=== PATIENT | female | born 1985 | race Caucasian/White ===

== ENCOUNTER 2024-03-24 20:47 | Inpatient (IN) | payer MEDICARE, BC, SELFPAY ==
[2024-03-24] VITALS (14 sets, daily range): BP systolic 104–142; BP diastolic 63–92; BMI 33.4
[2024-03-24 12:50] LABS: % Basophils 0.6 % (0-2); % Eosinophils 0.3 % (0-6); % Immature Granulocytes 2.7 % (0-0.5); % Lymphocytes 12.9 % (20.5-51.1); % Monocytes 6.2 % (1.7-9.3); % Neutrophils 77.3 % (42.2-75.2); Absolute Basophils 0.1 10^3/uL (0-0.2); Absolute Eosinophils 0.1 10^3/uL (0-0.7); Absolute Immature Granulocytes 0.5 10^3/uL (0-0.05); Absolute Lymphocytes 2.4 10^3/uL (1.2-3.4); Absolute Monocytes 1.2 10^3/uL (0.1-0.6); Absolute Neutrophils 14.4 10^3/uL (1.4-6.5); Hematocrit 36.8 % (37.0-47.0); Hemoglobin 11.7 g/dL (12.0-16.0); Mean Corp Hgb Conc. 31.8 g/dL (33.0-37.0); Mean Corpuscular Hgb 26.5 pg (27.0-31.0); Mean Corpuscular Volume 83.4 fL (81.0-99.0); Mean Platelet Volume 9.2 fL (7.4-10.4); Nucleated Red Blood Cells % 0.2 %; Platelet Count 429 10^3/uL (130-400); Red Blood Cell Count 4.41 10^6/uL (4.20-5.40); Red Cell Dist. Width 15.2 % (11.5-14.5); White Blood Cell Count 18.6 10^3/uL (4.8-10.8)
[2024-03-24 13:03] LABS: HCG, Serum Qualitative Screen Negative
[2024-03-24 13:04] LABS: ALT (SGPT) 23 U/L (0-35); AST (SGOT) 24 U/L (14-36); Albumin 3.3 g/dl (3.5-5.0); Alkaline Phosphatase 113 U/L (38-126); Blood Urea Nitrogen 13 mg/dl (7-17); Calcium 9.5 mg/dl (8.4-10.2); Carbon Dioxide 25 mmol/L (22-30); Chloride 91 mmol/L (98-107); Glucose 444 mg/dl (70-99); Lipase 50 U/L (23-300); Potassium 4.1 mmol/L (3.5-5.1); Sodium 133 mmol/L (135-145); Total Bilirubin 0.6 mg/dl (0.2-1.3); Total Protein 7.1 g/dl (6.3-8.2); eGFR > 60.00
--- NOTE | 2024-03-24 15:08 | ED.GENMED ---
History of Present Illness
<Romana Juarez MD, Resident - Last Filed: 03/24/24 15:32>
General
Chief Complaint: Flank Pain
Source: patient and family
Exam Limitations: none
Time Seen by Provider: 03/24/24 14:42
Nursing documentation reviewed up to this point in time: agreed with
Travel History
Have you traveled to any high risk areas for coronavirus over the past 14 days?: No
Have you had any contact with someone who has COVID-19?: No
Do you have any symptoms of coronavirus? Fever > 100 degrees, chills, cough, shortness of breath, sore throat, loss of taste or smell, muscle aches, or headache?: No
History of Present Illness
History of Present Illness:
38-year-old female with spina bifida s/p VA shunt, multiple revisions, most recent revision in 2013, history of nephrolithiasis, diabetes on oral medications, LINH on CPAP, self cath of bladder with stoma, presents to the hospital for evaluation of a
sudden onset flank swelling that patient and her family noticed yesterday night. Right-sided flank swelling was incidentally noticed by patient's mom when patient started moaning in pain every time she rests her back to her wheelchair. There is no
redness or hotness to the swelling, but the pain is 7/10 in intensity and nonradiating. She denies having any associated fever, chills, nausea, emesis, frequency, hesitancy, dysuria-she self caths herself for urine. There are no changes in her
bowel habits- no change in her stomal output. she denies having any cough, shortness of breath, chest pain, palpitations as well.
She also has a sacral decubitus ulcer stage III, she and her mom know how to take care of it, and states that there is no scar tissue or discharge or change in the base of her ulcer from her usual normal.
Upon arrival to the ER patient is found to be tachycardia and tachypnea but no hypotension or temperature changes, CBC is evidence for leukocytosis with left shift, hemoglobin at 11.7, platelet counts showed reactive thrombocytosis, and patient is
in high anion gap metabolic acidosis with anion gap at 18.8.
Patient recently moved from [place], and has her care team in [place].
Neurosurgery - Leo Delgado MD, [facility].
Urology - Dr. Ascencion Barahona MD, [facility].
PCP - Iban Rolon - [facility]
If applicable-neuro sx onset
Onset of symptoms known: No
Time pt last seen normal is known: No
Past History
<Romana Juarez MD, Resident - Last Filed: 03/24/24 15:32>
Past History
ED Past Medical History: Other (Spina bifida, VA shunt, diabetes mellitus, stoma, nephrolithiasis.)
ED Past Surgical History: Other (Presence of stoma, VA shunt with revision-most recent revision in 2013)
Phy Exam
<Carine Damon DO - Last Filed: 03/24/24 20:24>
Physical Exam
Physical Exam:
General: Well-appearing, no clinical signs of dehydration, nontoxic and in no acute distress
HEENT: protecting airway. Area of prior Mohs surgery to superior forehead, no erythema to borders, no drainage
Neck: appears supple
CV: Tachycardic, regular rhythm, no evidence of cyanosis
Resp: No accessory muscle use, no increased work of breathing, lungs clear to auscultation bilaterally
Abd: Soft and non-distended, no tenderness to palpation
Extremities: No deformities, no swelling. Large area of induration to the right flank, lower thoracic back extending to the distal flank region. Tender to palpation, no fluctuance on palpation.
Neuro: alert, no focal neurologic deficit
: deferred
Rectal: deferred
Psych: Normal affect
Skin: Intact
Course
<Romana Juarez MD, Resident - Last Filed: 03/24/24 15:32>
Orders/Labs/Results
Orders:
Orders
03/24/24 12:18
Test Result ONCE
03/24/24 12:25
Complete Blood Count/With Diff Urgent
Comprehensive Metabolic Panel Urgent
HCG, Serum Qualitative Screen Urgent
Lipase Urgent
03/24/24 15:04
IV Insert/Care/Rem.- Treatment PRN
0.9% Sodium Chloride 1000 ml [Nss] 1,000 ml IV BOLUS
03/24/24 15:30
CT Chest/abd/pel W Iv Cont Urgent
Comment:
Reason For Exam: Flank and upper thorasic swelling
03/24/24 15:59
B-Hydroxybutyrate Urgent
Basic Metabolic Panel Q2H
Lactic Acid Urgent
Prothrombin Time Urgent
Urinalysis Urgent
Date Specimen was Collected: 03/24/24
Time Specimen was Collected: 15:34
Urine Microscopic Urgent
Date Specimen was Collected: 03/24/24
Time Specimen was Collected: 15:34
Venous Blood Gas Urgent
%Oxygen/Room Air: 21
Blood Culture Q30M
JOAQUÍN Source: Blood/Venous
Specimen Description:
Comment: Obtain from 2 different sites.
Blood Culture Q30M
JOAQUÍN Source: Blood/Venous
Specimen Description:
Comment: Obtain from 2 different sites.
03/24/24 17:11
Basic Metabolic Panel Q2H
03/24/24 17:43
Piperacillin/Tazo 4.5 Gram [Zosyn] 4.5 gram in 100 ml IV NOW
03/24/24 17:45
Reg Insulin 100 Units/100 ml [Novolin R Insulin Infusion] 100 units in 100 ml IV ORDERED RATE
Initial dose in units/hr, then titrate:: 0.1
03/24/24 18:00
KCl 20 Meq/0.9%Sodchl 1000 ml [NSS with KCL 20 MEQ] 20 meq in 1,000 ml IV 250 mls/hr
03/24/24 18:22
Reg Insulin 100 Units/100 ml [Novolin R Insulin Infusion] 100 units in 100 ml IV NOW
Abnormal Lab Results
03/24/24 03/24/24 03/24/24
12:25 15:59 17:11
WBC 18.6 H 10^3/uL
(4.8-10.8)
Hgb 11.7 L g/dL
(12.0-16.0)
Hct 36.8 L %
(37.0-47.0)
MCH 26.5 L pg
(27.0-31.0)
MCHC 31.8 L g/dL
(33.0-37.0)
RDW 15.2 H %
(11.5-14.5)
Plt Count 429 H 10^3/uL
(130-400)
Abs Immat Gran (auto) 0.5 H 10^3/uL
(0-0.05)
Absolute Neuts (auto) 14.4 H 10^3/uL
(1.4-6.5)
Absolute Monos (auto) 1.2 H 10^3/uL
(0.1-0.6)
Immature Gran % 2.7 H %
(0-0.5)
Neutrophils % 77.3 H %
(42.2-75.2)
Lymphocytes % 12.9 L %
(20.5-51.1)
PT 16.2 H Sec
(11.4-14.6)
VBG pO2 52 H mmHg
(30-50)
VBG HCO3 27.2 H mmol/L
(22-27)
Sodium 133 L mmol/L 133 L mmol/L
(135-145) (135-145)
Chloride 91 L mmol/L 90 L mmol/L 93 L mmol/L
(98-107) (98-107) (98-107)
Creatinine 0.4 L mg/dL 0.4 L mg/dL 0.4 L mg/dL
(0.6-1.0) (0.6-1.0) (0.6-1.0)
Glucose 444 H mg/dl 421 H mg/dl 386 H mg/dl
(70-99) (70-99) (70-99)
Albumin 3.3 L g/dl
(3.5-5.0)
Urine Ketones 1+ A
(Negative)
Ur Leukocyte Esterase Trace A
(Negative)
Urine Bacteria Many A
(Negative)
Urine Glucose 3+ A
(Negative)
B-Hydroxybutyrate 2.54 H mmol/L
(0.02-0.27)
POC Glucose
03/24/24
19:26
WBC
Hgb
Hct
MCH
MCHC
RDW
Plt Count
Abs Immat Gran (auto)
Absolute Neuts (auto)
Absolute Monos (auto)
Immature Gran %
Neutrophils %
Lymphocytes %
PT
VBG pO2
VBG HCO3
Sodium
Chloride
Creatinine
Glucose
Albumin
Urine Ketones
Ur Leukocyte Esterase
Urine Bacteria
Urine Glucose
B-Hydroxybutyrate
POC Glucose 354 H mg/dl
(70-99)
03/24/24 12:25
03/24/24 19:15
Vital Signs
Initial and Last Documented VS:
Initial Vital Signs
Temp Pulse Resp BP Pulse Ox
98.2 F 127 16 117/90 98
03/24/24 12:12 03/24/24 12:12 03/24/24 12:12 03/24/24 12:12 03/24/24 12:12
Last Documented Vital Signs
Temp Pulse Resp BP Pulse Ox
98.2 F 121 32 136/88 93
03/24/24 12:12 03/24/24 19:00 03/24/24 19:00 03/24/24 19:00 03/24/24 19:00
<Carine Damon, DO - Last Filed: 03/24/24 20:24>
Orders/Labs/Results
Orders:
Orders
03/24/24 12:18
Test Result ONCE
03/24/24 12:25
Complete Blood Count/With Diff Urgent
Comprehensive Metabolic Panel Urgent
HCG, Serum Qualitative Screen Urgent
Lipase Urgent
03/24/24 15:04
IV Insert/Care/Rem.- Treatment PRN
0.9% Sodium Chloride 1000 ml [Nss] 1,000 ml IV BOLUS
03/24/24 15:30
CT Chest/abd/pel W Iv Cont Urgent
Comment:
Reason For Exam: Flank and upper thorasic swelling
03/24/24 15:59
B-Hydroxybutyrate Urgent
Basic Metabolic Panel Q2H
Lactic Acid Urgent
Prothrombin Time Urgent
Urinalysis Urgent
Date Specimen was Collected: 03/24/24
Time Specimen was Collected: 15:34
Urine Microscopic Urgent
Date Specimen was Collected: 03/24/24
Time Specimen was Collected: 15:34
Venous Blood Gas Urgent
%Oxygen/Room Air: 21
Blood Culture Q30M
JOAQUÍN Source: Blood/Venous
Specimen Description:
Comment: Obtain from 2 different sites.
Blood Culture Q30M
JOAQUÍN Source: Blood/Venous
Specimen Description:
Comment: Obtain from 2 different sites.
03/24/24 17:11
Basic Metabolic Panel Q2H
03/24/24 17:43
Piperacillin/Tazo 4.5 Gram [Zosyn] 4.5 gram in 100 ml IV NOW
03/24/24 17:45
Reg Insulin 100 Units/100 ml [Novolin R Insulin Infusion] 100 units in 100 ml IV ORDERED RATE
Initial dose in units/hr, then titrate:: 0.1
03/24/24 18:00
KCl 20 Meq/0.9%Sodchl 1000 ml [NSS with KCL 20 MEQ] 20 meq in 1,000 ml IV 250 mls/hr
03/24/24 18:22
Reg Insulin 100 Units/100 ml [Novolin R Insulin Infusion] 100 units in 100 ml IV NOW
Abnormal Lab Results
03/24/24 03/24/24 03/24/24
12:25 15:59 17:11
WBC 18.6 H 10^3/uL
(4.8-10.8)
Hgb 11.7 L g/dL
(12.0-16.0)
Hct 36.8 L %
(37.0-47.0)
MCH 26.5 L pg
(27.0-31.0)
MCHC 31.8 L g/dL
(33.0-37.0)
RDW 15.2 H %
(11.5-14.5)
Plt Count 429 H 10^3/uL
(130-400)
Abs Immat Gran (auto) 0.5 H 10^3/uL
(0-0.05)
Absolute Neuts (auto) 14.4 H 10^3/uL
(1.4-6.5)
Absolute Monos (auto) 1.2 H 10^3/uL
(0.1-0.6)
Immature Gran % 2.7 H %
(0-0.5)
Neutrophils % 77.3 H %
(42.2-75.2)
Lymphocytes % 12.9 L %
(20.5-51.1)
PT 16.2 H Sec
(11.4-14.6)
VBG pO2 52 H mmHg
(30-50)
VBG HCO3 27.2 H mmol/L
(22-27)
Sodium 133 L mmol/L 133 L mmol/L
(135-145) (135-145)
Chloride 91 L mmol/L 90 L mmol/L 93 L mmol/L
(98-107) (98-107) (98-107)
Creatinine 0.4 L mg/dL 0.4 L mg/dL 0.4 L mg/dL
(0.6-1.0) (0.6-1.0) (0.6-1.0)
Glucose 444 H mg/dl 421 H mg/dl 386 H mg/dl
(70-99) (70-99) (70-99)
Albumin 3.3 L g/dl
(3.5-5.0)
Urine Ketones 1+ A
(Negative)
Ur Leukocyte Esterase Trace A
(Negative)
Urine Bacteria Many A
(Negative)
Urine Glucose 3+ A
(Negative)
B-Hydroxybutyrate 2.54 H mmol/L
(0.02-0.27)
POC Glucose
03/24/24
19:26
WBC
Hgb
Hct
MCH
MCHC
RDW
Plt Count
Abs Immat Gran (auto)
Absolute Neuts (auto)
Absolute Monos (auto)
Immature Gran %
Neutrophils %
Lymphocytes %
PT
VBG pO2
VBG HCO3
Sodium
Chloride
Creatinine
Glucose
Albumin
Urine Ketones
Ur Leukocyte Esterase
Urine Bacteria
Urine Glucose
B-Hydroxybutyrate
POC Glucose 354 H mg/dl
(70-99)
03/24/24 12:25
03/24/24 19:15
Vital Signs
Initial and Last Documented VS:
Initial Vital Signs
Temp Pulse Resp BP Pulse Ox
98.2 F 127 16 117/90 98
03/24/24 12:12 03/24/24 12:12 03/24/24 12:12 03/24/24 12:12 03/24/24 12:12
Last Documented Vital Signs
Temp Pulse Resp BP Pulse Ox
98.2 F 121 32 136/88 93
03/24/24 12:12 03/24/24 19:00 03/24/24 19:00 03/24/24 19:00 03/24/24 19:00
<Carine Damon, DO - Last Filed: 03/24/24 20:24>
*Critical Care Note
Total Time (30-74mins, 75-104mins- exclusive of procedures): 75
comment:
The high probability of a clinically significant, sudden or life threatening deterioration of the infectious system(s) (DKA/large renal abscess) required my full and direct attention, intervention and personal management. The aggregate critical care
time was 75 minutes. This time is in addition to time spent performing reported procedures but includes the following:
[x] Data Review and interpretation
[x] Patient assessment and monitoring of vital signs
[x] Documentation
[x] Medication orders and management
ED Attending Note
<Romana Juarez MD, Resident - Last Filed: 03/24/24 15:32>
-
Portions of this chart may have been created with voice recognition software.� Occasional wrong word or��sound alike� substitutions may have occurred due to the inherent limitations of voice recognition software.
<Carine Damon DO - Last Filed: 03/24/24 20:24>
ED Attending Note
Patient seen and examined by attending physician: Yes
I performed the substantive portion of visit, reviewed & personally made and approve the management plan that is documented in note by myself or CHEY.: Yes
I performed a history and physical exam of patient and discussed management with resident, I reviewed resident's note and agree with documented findings and plan of care.: Yes
ED Attending Note:
38-year-old female with history of diabetes, spina bifida with VA shunt (most recent revision in 2013), stage III ulceration of the sacrum presenting to the emergency department for right flank pain and swelling. Patient reports she noticed pain
and swelling last evening, however has had pain for the past few days. Has no history of kidney stones. Denies any known fever. Pain is sharp without radiation to the abdomen. She notes compliance with her diabetes medications, however does not
routinely check her sugars at home. Denies chest pain or difficulty breathing. Denies vomiting. Vital signs on arrival significant for tachycardia.
On exam, patient is resting comfortably, no acute distress. Benign cardiac and pulmonary exam, however on lung examination, large area of induration to the right flank region with tenderness to soft tissue. No fluctuance. Patient screening
laboratory analysis assessment which shows leukocytosis, hyperglycemia, with anion gap of 18. Concern for DKA from underlying infection, possible soft tissue infection. Will add lactic acid, blood cultures, VBG, beta hydroxybutyrate. Will start
patient on IV fluids. For further evaluation of patient soft tissue swelling, plan for CT chest/abdomen/pelvis.
17:50 -patient without acidosis, however does have elevated beta hydroxybutyrate. In the setting of anion gap and hyperglycemia, will start insulin drip. CT of the chest abdomen and pelvis shows a large 14 cm centrally cystic mass from the
posterior cortex of the right kidney extending posteriorly through the abdominal wall, concerning for abscess. Interventional radiology and urology made aware. Plan for admission. Family and patient updated.
19:10 -discussed with urology, recommending transfer to tertiary care center given complexity of patient's condition. He was able to place a catheter into her bladder stoma, and did discuss with IR, who is recommending medical resuscitation prior
to percutaneous cath for abscess drainage. Did call [facility] for transfer and urology recommendations, discussed with hospitalist, who is in agreement that patient warrants transfer to tertiary care center given complex medical history condition.
Patient accepted by Dr. Reyes, notes that patient will get a bed tonight. Family updated again.
20:20 - [facility] called back, discussed with MICU doctor, Dr. Ornelas. Also discussed with IR . Patient remains excepted to their facility, however bed will not be available for the next 24 hours. Plan for admission to this facility until bed
available.
Discharge Plan
Departure
Patient Disposition: Acute Care Hospital
Date of Disposition: 03/24/24
Time of Disposition: 17:57
Condition: Fair
Discharge Problem:
DKA (diabetic ketoacidosis), Abscess of right kidney
Prescriptions:
No Action
atorvastatin 40 mg tablet
40 mg PO QPM
desmopressin 10 mcg/spray (0.1 mL) spray with pump
1 spray INTRANASAL BID
desmopressin 0.2 mg tablet
0.2 mg PO QIDPRN PRN (Reason: diabetes insipidus symptoms)
chlorthalidone 25 mg tablet
25 mg PO DAILY
glimepiride 2 mg tablet
2 mg PO BID
methenamine hippurate 1 gram tablet
1 g PO BIDWMEAL
azelastine 137 mcg (0.1 %) spray,non-aerosol
1 spray INTRANASAL BIDPRN PRN (Reason: congestion)
fenofibrate 160 mg tablet
160 mg PO HS
guaifenesin [Mucinex] 1,200 mg Tablet Extended Release 12hr
1,200 mg PO DAILY
mirabegron [Myrbetriq] 50 mg tablet extended release 24 hr
50 mg PO DAILY
Ozempic 1 mg/dose (4 mg/3 mL) pen injector
1 mg SC LARSON
Vitamin C
1 tab PO BIDWMEAL
Referrals:
Iban Hernández MD [Family Provider] -
Hospital Transfer
Other hospital: [facility]
I certify that the patient requires transfer: Yes
Discussed case with accepting physician: Dr. Reyes
Reason for transfer: higher level of care and specialties available
Interventions
Interventions:
ED- Fall Risk Assessment Last Done: 03/24/24 16:12
WA-Nvfwnt-Czexsdvpiv Assessment Last Done: 03/24/24 16:06
ED-Female Genitourinary Assessment Last Done: 03/24/24 16:07
Discharge Date and Time
Print Language: SCOTTISH
[2024-03-24] MEDS: NSS 1000 IV (16:01)
[2024-03-24 16:13] LABS: Urine Albumin Trace (Neg - Trace); Urine Bilirubin Negative (Negative); Urine Character Slightly Cloudy (Clear); Urine Color Yellow; Urine Glucose 3+ (Negative); Urine Ketone 1+ (Negative); Urine Leukocyte Trace (Negative); Urine Nitrite Negative (Negative); Urine Occult Blood Negative (Negative); Urine Urobilinogen Negative (Neg - 1+); Venous Blood Gas B.E. 2.6 mmol/L (-4 to +4); Venous Blood Gas HCO3 27.2 mmol/L (22-27); Venous Blood Gas O2 Sat % 86.5 %; Venous Blood Gas pCO2 41 mmHg (35-48); Venous Blood Gas pH 7.43 (7.32-7.43); Venous Blood Gas pO2 52 mmHg (30-50)
[2024-03-24 16:21] LABS: Urine Bacteria Many (Negative); Urine Red Blood Cell 0-2 /HPF (0-2)
[2024-03-24 16:24] LABS: INR 1.27; PT 16.2 Sec (11.4-14.6)
[2024-03-24 16:26] LABS: Lactic Acid 1.6 mmol/L (0.7-2.0)
[2024-03-24 16:27] LABS: Blood Urea Nitrogen 14 mg/dl (7-17); Calcium 9.4 mg/dl (8.4-10.2); Carbon Dioxide 26 mmol/L (22-30); Chloride 90 mmol/L (98-107); Glucose 421 mg/dl (70-99); Potassium 3.9 mmol/L (3.5-5.1); Sodium 133 mmol/L (135-145); eGFR > 60.00
[2024-03-24 16:33] LABS: B-Hydroxybutyrate 2.54 mmol/L (0.02-0.27)
[2024-03-24 17:33] LABS: Blood Urea Nitrogen 13 mg/dl (7-17); Calcium 8.9 mg/dl (8.4-10.2); Carbon Dioxide 26 mmol/L (22-30); Chloride 93 mmol/L (98-107); Glucose 386 mg/dl (70-99); Potassium 3.7 mmol/L (3.5-5.1); Sodium 135 mmol/L (135-145); eGFR > 60.00
--- NOTE | 2024-03-24 18:06 | HPS.HSE ---
Family Physician
-
Family Physician: Iban Hernández MD
Chief Complaint
-
right flank pain
History of Present Illness
38-year-old female with spina bifida s/p VA shunt, multiple revisions, most recent revision in 2013, history of nephrolithiasis, diabetes on oral medications, LINH on CPAP, self cath of bladder with stoma, presents to the hospital for evaluation of a
sudden onset flank swelling that patient and her family noticed yesterday night. Right-sided flank swelling was incidentally noticed by patient's mom when patient started moaning in pain every time she rests her back to her wheelchair. She denies
having any associated fever, chills, nausea, emesis, frequency, hesitancy, dysuria-she self caths herself for urine. denied abdominal pain,n,v,d. denied dysuria or hematuria. she denies having any cough, shortness of breath, chest pain,
palpitations as well.
She also has a sacral decubitus ulcer stage III, she and her mom know how to take care of it, and states that there is no scar tissue or discharge or change in the base of her ulcer from her usual normal.
Upon arrival to the ER patient is found to be tachycardia and tachypnea, CBC is evidence for leukocytosis with left shift, hemoglobin at 11.7, platelet counts showed reactive thrombocytosis, and patient is in high anion gap metabolic acidosis with
anion gap at 18.8.
patient started on zosyn and insulin drip
admitting for further management.
Medical History
Past Medical History
Past Medical History: Reports Other
Additional Past Medical History:
spina bifida s/p VA shunt, multiple revisions, most recent revision in 2013, history of nephrolithiasis, diabetes on oral medications, LINH on CPAP, self cath of bladder with stoma,
Past Surgical History: Reports Other
Additional Past Surgical History:
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
kidney stone surgeries
MOHS surgery
stoma creation for self cath
Social History
Tobacco: Non-smoker
Alcohol: None
Drug: None
Living: With Family
Family History
Family History: Not pertinent
Allergies / Home Medications
Allergies reflects when Allergies were last updated in [facility].
Home Medications with original date entered in [facility]
Allergy/Medication List:
Allergies
Allergy/AdvReac Type Severity Reaction Status Date / Time
latex Allergy Itching Verified 03/24/24 12:17
Home Medications
Vitamin C 1 tab PO BIDWMEAL 03/24/24
atorvastatin 40 mg tablet 40 mg PO QPM 03/24/24
azelastine 137 mcg (0.1 %) nasal spray 1 spray intranasal BIDPRN PRN congestion 03/24/24
chlorthalidone 25 mg tablet 25 mg PO DAILY 03/24/24
desmopressin 0.2 mg tablet 0.2 mg PO QIDPRN PRN diabetes insipidus symptoms 03/24/24
desmopressin 10 mcg/spray (0.1 mL) nasal spray (non-refrigerated) 1 spray intranasal BID 03/24/24
fenofibrate 160 mg tablet 160 mg PO HS 03/24/24
glimepiride 2 mg tablet 2 mg PO BID 03/24/24
guaifenesin 1,200 mg tablet, extended release 12 hr (Mucinex) 1,200 mg PO DAILY 03/24/24
methenamine hippurate 1 gram tablet 1 g PO BIDWMEAL 03/24/24
mirabegron 50 mg tablet,extended release 24 hr (Myrbetriq) 50 mg PO DAILY 03/24/24
semaglutide 1 mg/dose (4 mg/3 mL) subcutaneous pen injector (Ozempic) 1 mg SC LARSON 03/24/24
Review of Systems
-
Constitutional: Reports No Symptoms
EENT: Reports No Symptoms
Respiratory: Reports No Symptoms
Cardiac: Reports No Symptoms
Abdomen/GI: Reports No Symptoms
: Reports No Symptoms
Musculoskeletal: Reports Other (back pain)
Skin: Reports No Symptoms
Neurological: Reports No Symptoms
Endocrine: Reports No Symptoms
Hematologic/Lymphatic: Reports No Symptoms
Psych: Reports No Symptoms
Physical Exam
Vital Signs
Vital Signs
Temp Pulse Resp BP Pulse Ox
98.2 F 120 35 140/80 93
03/24/24 12:12 03/24/24 17:30 03/24/24 17:30 03/24/24 17:00 03/24/24 17:30
Physical Exam
General: Well Developed, Well Nourished and No Apparent Distress
HEENT: NormoCephalic, Moist mucous membranes and Atraumatic
Respiratory: Clear
Cardiac: S1/S2 and Regular Rhythm; No Murmur or Rub
GI: Soft, Non Tender, Non Distended and Normal Bowel Sounds; No Organomegaly
Rectal: Deferred by Provider
Musculoskeletal: No Clubbing, No Cyanosis, No Edema and Other (right sided swelling)
Skin: No Rash
Neuro: AO x 3 and Nonfocal/grossly intact
Psych: Calm
Laboratory Results
-
03/24/24 12:25
03/24/24 19:15
Laboratory Results
PT 16.2 Sec (11.4-14.6) H 03/24/24 15:59
INR 1.27 03/24/24 15:59
Lactic Acid 1.6 mmol/L (0.7-2.0) 03/24/24 15:59
Total Bilirubin 0.6 mg/dl (0.2-1.3) 03/24/24 12:25
AST 24 U/L (14-36) 03/24/24 12:25
ALT 23 U/L (0-35) 03/24/24 12:25
Alkaline Phosphatase 113 U/L (38-126) 03/24/24 12:25
Lipase 50 U/L (23-300) 03/24/24 12:25
Data Reviewed
-
CT Scan: Report Reviewed by me
Lab Data: Labs Reviewed by me
Impression/Plan
-
#suspect renal mass/abscess
-wbc 18.6
-IR and urology consulted
-chest abdomen pelvis CT with LARGE 14.0 cm CENTRALLY CYSTIC MASS exophytic from the posterior cortex of the RIGHT KIDNEY and extending posteriorly through the posterior abdominal wall. Diagnostic possibilities are (1) a LARGE RIGHT RENAL ABSCESS
and acute right pyelonephritis or (2) cystic renal cell carcinoma (less likely given the patient's age).
2. Multiple nonobstructing right intrarenal calculi.
3. Moderate amount of fecal material throughout the colon.
4. Neurogenic bladder.
5. Severe congenital sacral dysraphism with a large spina bifida defect in the lower lumbar spine and calcification throughout the thecal sac of the lumbar spinal canal.
6. Severe diffuse muscle atrophy.
-iv Zosyn continued
-Tylenol prn for fever and pain
-blood culture
#DKA
-on insulin drip
-hold glimepiride
-hold Ozempic
#neurogenic bladder
-catheter in place via stoma
#HLD
-statin,fenofibrate continued
#essential htn
-chlorthalidone
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
#sacral decub stage 3
-wound care consulted
#hxt of UTIs/stones
-hxt of appendico-vesicostomy
#DVT Prophylaxis
Lovenox
#CODE status
-full code
patient accepted by [facility] to transfer but no bed available tonight.
[2024-03-24] MEDS: ZOSYN 100 IV (18:23)
--- NOTE | 2024-03-24 18:58 | CON.MD ---
Consultation - Medical
-
see dictated note
pt with spinda bifida and complex medical hx
has received all care at [facility]
just moved locally 1-2 weeks ago
urologically has has UTI's/stones (with one ureteroscopy by report)/ appendico-vesicostomy (self cath's with 14 irish) and suspected urethral suspension for urethral leak
presents to ER with right flank pain and fevers
CT shows massive right retroperitoneal abscess suspected to be arising from right kidney
kidney has some non-obstructing stones- no hydro
pt also in DKA
reviewed extensively with pt and family/ER and hospitalist team
reviewed with IR
i was able to place 14 irish cath in stoma for bladder decompression
right flank is tender but no crepitus or drainage at this time
abd is obsese with multiple midline scars
next step would be placement of drain- IR feels that pt needs a period of medical recussitation prior- would schedule for am
however- given the complexity of this patient and high risk nature of this issue- I would rec transfer to tertiary care center if possible- and the family request this as well
at current time- gil in place and draining- on ivf/insulin drip and aggressive iv therapy/ no blood thinners and npo for possible IR drain while attempt is made for transfer
[2024-03-24 19:26] LABS: Glucose - Point of Care 354 mg/dl (70-99)
[2024-03-24] MEDS: NSS with KCL 20 MEQ 1000 IV (19:34)
[2024-03-24] MEDS: NOVOLIN R INSULIN INFUSION 100 IV (19:35)
[2024-03-24 20:38] LABS: Glucose - Point of Care 332 mg/dl (70-99)
--- NOTE | 2024-03-24 20:51 | W.PN.UPDATE ---
Update Note
Progress Note Update
This note serves as an addendum to the H&P by metal box maker CHEY Alyssia TAWANNA
HPI
38F HX spina bifida s/p VA shunt, multiple revisions, most recent revision in 2013, history of nephrolithiasis, diabetes on oral medications, LINH on CPAP, self cath of bladder with stoma, presents to the hospital for evaluation
- sudden onset flank swelling that patient and her family noticed yesterday night.
- associated Right-sided flank swelling wand in pain every time she rests her back to her wheelchair.
Present upon admission :
Sacral decubitus ulcer stage III, she and her mom know how to take care of it, and states that there is no scar tissue or discharge or change in the base of her ulcer from her usual normal.
ROS:
- denies having any associated fever, chills, nausea, emesis, frequency, hesitancy, dysuria-she self caths herself for urine. - denied abdominal pain,n,v,d. denied dysuria or hematuria.
- denies having any cough, shortness of breath, chest pain, palpitations as well.
Upon arrival to the ER
- tachycardia and tachypnea,
Vital Signs
Temp Pulse Resp BP Pulse Ox
98.2 F 121 32 136/88 93
03/24/24 12:12 03/24/24 19:00 03/24/24 19:00 03/24/24 19:00 03/24/24 19:00
PE
Gen: Not toxic looking
HEENT: anictric
Neck: supple
Lungs: CTA
Cor: RRR
Abdomen: Rt flank swelling
SOFTWARE SALES REPRESENTATIVE: AAO3
Psych: nl mood and affect
Data
Abnormal Lab Results
03/24/24 03/24/24 03/24/24
12:25 15:59 17:11
WBC 18.6 H
Hgb 11.7 L
Hct 36.8 L
MCH 26.5 L
MCHC 31.8 L
RDW 15.2 H
Plt Count 429 H
Abs Immat Gran (auto) 0.5 H
Absolute Neuts (auto) 14.4 H
Absolute Monos (auto) 1.2 H
Immature Gran % 2.7 H
Neutrophils % 77.3 H
Lymphocytes % 12.9 L
PT 16.2 H
VBG pO2 52 H
VBG HCO3 27.2 H
Sodium 133 L 133 L
Chloride 91 L 90 L 93 L
Creatinine 0.4 L 0.4 L 0.4 L
Glucose 444 H 421 H 386 H
Albumin 3.3 L
Urine Ketones 1+ A
Ur Leukocyte Esterase Trace A
Urine Bacteria Many A
Urine Glucose 3+ A
B-Hydroxybutyrate 2.54 H
POC Glucose 354 332
Data:
leukocytosis with left shift
Thrombocytosis,
Hi AG MA 18.8.
CT C/A/P w IV Contrast
CHEST:
1. Small right pleural effusion.
2. Small subcentimeter solid pulmonary nodules. Diagnostic possibilities are (1) infectious or inflammatory pulmonary nodules or (2) pulmonary metastatic disease.
3. Severe right convex curvature of the thoracolumbar junction.
4. Multilevel vertebral body anomalies in the upper thoracic spine.
5. Catheter in the upper thoracic central spinal canal.
ABDOMEN and PELVIS:
1. LARGE 14.0 cm CENTRALLY CYSTIC MASS exophytic from the posterior cortex of the RIGHT KIDNEY and extending posteriorly through the posterior abdominal wall. Diagnostic possibilities are (1) a LARGE RIGHT RENAL ABSCESS and acute right
pyelonephritis or (2) cystic renal cell carcinoma (less likely given the patient's age).
2. Multiple nonobstructing right intrarenal calculi.
3. Moderate amount of fecal material throughout the colon.
4. Neurogenic bladder.
5. Severe congenital sacral dysraphism with a large spina bifida defect in the lower lumbar spine and calcification throughout the thecal sac of the lumbar spinal canal.
6. Severe diffuse muscle atrophy.
IMPRESSION ad PLAN
Suspect Rt renal abscess
03/24/24 Indwelling FC placed via stoma by Urologist
HX Self cath for Neurogenic bladder due to Spina bifida
- BCx
- c/w indwelling cath
- BCx sent
- Clear diet in case IR procedure
- Empiric Zosyn
- IR consulted for drainage
- Urology consulted
DKA : POS BHP and gap acidosi
HX IDDM
- Insulin gtt
- DM CHAIN PERSON consult
- hold glimepiride
- hold Ozempic
HLD
- c/w PT statin,fenofibrate
Essential HTN
c/w Chlorthalidone
DVT Px: LMWH
Full code
ICU
Total Critical Care Time__65___ minutes.
I was immediately available to the patient and staff. I personally examined, reviewed labs, diagnostic images/reports, interpretations, treatment plans, discussed patient care with other providers and family or caregivers (if patient is unable to
make decisions), entered orders as appropriate and documented the medical record.
--- NOTE | 2024-03-24 21:45 | PTCARENOTE ---
Patient received from the ED via stretcher accompanied by nurse. Hand off validation. Patient currently on Insulin gtt and IVF. Patient with spina bifida, transferred to bed from stretcher. See assessment charted. Patient is without apparent signs
of distress or discomfort. However, moans with transfer and repositioning. States that she has right hip/right flank pain. Tylenol given for pain. Hourly blood sugars with insulin gtt titration per order. EKG performed at bedside. Labs drawn. Sellers
catheter to urostomy, inserted by urology in ED. Patient is ST on CM with HR 110-120s on CM. BP stable. Rectal temp 99.6F. Pressure injuries and wounds noted, see documented. Call harley in reach, bed rails up.
[2024-03-24 21:56] LABS: Glucose - Point of Care 248 mg/dl (70-99)
[2024-03-24] MEDS: D5/0.45%NSS with KCL 20 MEQ 1000 IV (22:13)
[2024-03-24 22:24] LABS: APTT 26.8 Sec (23.4-35.0)
[2024-03-24 22:26] LABS: Blood Urea Nitrogen 10 mg/dl (7-17); Calcium 8.9 mg/dl (8.4-10.2); Carbon Dioxide 26 mmol/L (22-30); Chloride 102 mmol/L (98-107); Estimated Creatinine Clearance 112 ml/min; Glucose 236 mg/dl (70-99); Potassium 3.6 mmol/L (3.5-5.1); Sodium 140 mmol/L (135-145); eGFR > 60.00
[2024-03-24] MEDS: TRICOR 145 MG PO (22:36)
[2024-03-24] MEDS: HIPREX 1 GRAM PO (22:36)
[2024-03-24] MEDS: TYLENOL 650 MG PO (22:36)
[2024-03-24 22:56] LABS: Glucose - Point of Care 243 mg/dl (70-99)
[2024-03-24 23:59] LABS: Glucose - Point of Care 288 mg/dl (70-99)
[2024-03-25] VITALS (39 sets, daily range): BP systolic 90–136; BP diastolic 54–89; BMI 33.9
--- NOTE | 2024-03-25 | PTCARENOTE ---
Initial assessment essentially unchanged. Hourly blood sugars documented, insulin gtt titrated per protocol. Repositioned every 2 hours, HOB up. On Bipap during sleep, set up by RT. Patient reports improvement of pain. Anxious, emotional support and
encouragement given as needed.
[2024-03-25] MEDS: ZOSYN 50 IV ×5 (00:49→23:51)
[2024-03-25 00:57] LABS: Glucose - Point of Care 318 mg/dl (70-99)
[2024-03-25 01:59] LABS: Glucose - Point of Care 314 mg/dl (70-99)
[2024-03-25 02:14] LABS: Blood Urea Nitrogen 10 mg/dl (7-17); Calcium 8.2 mg/dl (8.4-10.2); Carbon Dioxide 26 mmol/L (22-30); Chloride 102 mmol/L (98-107); Estimated Creatinine Clearance 112 ml/min; Glucose 305 mg/dl (70-99); Potassium 3.4 mmol/L (3.5-5.1); Sodium 138 mmol/L (135-145); eGFR > 60.00
[2024-03-25 03:01] LABS: Glucose - Point of Care 302 mg/dl (70-99)
[2024-03-25] MEDS: D5/0.45%NSS with KCL 20 MEQ 1000 IV (04:29)
[2024-03-25 05:00] LABS: Glucose - Point of Care 306 mg/dl (70-99)
--- NOTE | 2024-03-25 05:00 | PTCARENOTE ---
General assessment unchanged. Am labs drawn. Repositioned. Patient appears comfortable. On Bipap. VSS except low grade temp persists.
[2024-03-25 06:15] LABS: Glucose - Point of Care 295 mg/dl (70-99)
--- NOTE | 2024-03-25 06:30 | PTCARENOTE ---
Dr Johnson at bedside to assess. Updated with patient clinical status.
--- NOTE | 2024-03-25 06:35 | W.PN.URO.CBU ---
Today's Communication / Plan
-
IR drainage of abscess
transfer when bed available
Assessment / Plan
-
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
check labs
continue medical resuscitation with insulin/ivf and antibx
cx's pending- urine was not sent- but will send from gil today
maintain gil thru abd stoma
given pt's complex medical hx and current diagnosis- [facility] accepted for transfer-
I did speak with IR again last night- plan to proceed with perc drain here today depending on timing of transfer
Diagnosis
-
Date of Service: March 25, 2024
-
Patient Diagnosis:
markus-renal abscess
Subjective
-
pt in ICU
HD stable
says she feels a little better
Objective
-
Vital Signs
Temp Pulse Resp BP Pulse Ox
99.3 F 108 35 128/69 96
03/25/24 04:30 03/25/24 05:00 03/25/24 05:00 03/25/24 05:00 03/25/24 05:00
Intake and Output
03/23/24 03/24/24 03/25/24
06:59 06:59 06:59
Intake Total 2183 / 2183
Output Total 2049
Balance 133 / 133
Intake:
Oral fluids 720 / 720
IV fluids (Total) 1363 / 1363
D5/0.45%NSS with KCL 20 MEQ 20 1325 / 1325
meq In 1,000 ml @ 150 mls/hr IV
.Q6H40M [facility] Rx#:[id number]
Insulin gtt 100u/100ml 38 / 38
NSS with KCL 20 MEQ 20 meq In 1 0 / 0
,000 ml @ 250 mls/hr IV .Q4H
[facility] Rx#:[id number]
IV piggybacks 100 / 100
Output:
Urine, Gil 1550 / 1550
Urine, Voided 500 / 500
Review of Systems
-
Constitutional: Fever and Fatigue
Respiratory: No Symptoms
Cardiac: No Symptoms
Abdomen/GI: No Symptoms
: Other (gil in stoma- urine clear)
Physical Exam
-
General - ill appearing, NAD
Abdomen - obese, stoma with 14 greenlandic gil- urine clear- right flank tender- but no erythema/crepitus or drainage
Genitalia - normal
[2024-03-25 06:39] LABS: Blood Urea Nitrogen 9 mg/dl (7-17); Calcium 8.6 mg/dl (8.4-10.2); Carbon Dioxide 29 mmol/L (22-30); Chloride 104 mmol/L (98-107); Estimated Creatinine Clearance 113 ml/min; Glucose 277 mg/dl (70-99); Sodium 142 mmol/L (135-145); eGFR > 60.00
[2024-03-25 07:01] LABS: Hematocrit 30.4 % (37.0-47.0); Hemoglobin 9.7 g/dL (12.0-16.0); Mean Corp Hgb Conc. 31.9 g/dL (33.0-37.0); Mean Corpuscular Hgb 26.9 pg (27.0-31.0); Mean Corpuscular Volume 84.4 fL (81.0-99.0); Platelet Count 343 10^3/uL (130-400); Red Cell Dist. Width 15.4 % (11.5-14.5)
[2024-03-25 07:12] LABS: Glucose - Point of Care 309 mg/dl (70-99)
--- NOTE | 2024-03-25 07:27 | PTCARENOTE ---
Report given verbally to oncoming shift. Questions answered.
[2024-03-25 07:38] LABS: Blood Urea Nitrogen 9 mg/dl (7-17); Calcium 8.7 mg/dl (8.4-10.2); Carbon Dioxide 30 mmol/L (22-30); Chloride 102 mmol/L (98-107); Estimated Creatinine Clearance 113 ml/min; Glucose 292 mg/dl (70-99); Potassium 3.9 mmol/L (3.5-5.1); Sodium 141 mmol/L (135-145); eGFR > 60.00
[2024-03-25] MEDS: MUCINEX 1200 MG PO (07:43)
[2024-03-25] MEDS: DETROL LA 4 MG PO (07:43)
[2024-03-25] MEDS: HIPREX 1 GRAM PO ×2 (07:43→17:04)
[2024-03-25] MEDS: Hygroton 25 MG PO (07:43)
[2024-03-25] MEDS: TYLENOL 650 MG PO (07:44)
[2024-03-25 08:24] LABS: Glucose - Point of Care 297 mg/dl (70-99)
--- NOTE | 2024-03-25 08:27 | CON.INTV ---
Consultation
Consultation Request
Date/Time Consultation Requested: 03/24/2024 - 2035
Date/Time Consultation Performed: 03/25/2024823
Requesting Provider: SHILO Marin
Performing Provider: Duc Mercado MD
Reason for Consultation: DKA
Medical History
-
Chief Complaint: Right flank swelling with reduced appetite + general malaise
History of Present Illness:
38-year-old female with a past medical history of spina bifid s/p VA shunt with multiple revisions (most recently 2013), history of myelomeningocele, contracted lower extremities which are inverted, history of UTI with kidney stone, self CIC via
bladder stoma, hypertriglyceridemia, DM type II on oral antiglycemic's, obesity, and LINH on CPAP who presents with right flank swelling with reduced PO intake and malaise. 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 No recent
illness although she is around her young niece who may have been sick recently. In the ER she was initially afebrile to 98.2 �F, tachycardic with pulse rate 127, breathing at 16 breaths/min, BP 117/90 and saturating 98% on room air. Initial labs
showed leukocytosis to 18.6, anemia to 11.7, thrombocytosis to 429, hyponatremia to 133, glucose 421, lactate 1.6, urinalysis slightly cloudy with +1 ketones and trace leukocyte esterase, with beta-hydroxybutyrate elevated at 2.54. Blood cultures
collected. CT chest/abdomen/pelvis with contrast performed showing a large 14 cm centrally cystic exophytic mass extending from the right kidney to the posterior abdominal wall. Also multiple nonobstructing right intrarenal calculi with severe
diffuse muscular atrophy, a small right pleural effusion with small subcentimeter solid pulmonary nodules in the right apex, RLL + LLL. In the ER she was given IVF with 1 L NS 0.9%, Zosyn, started on insulin drip and started on maintenance IVF with
NS 0.9% + KCl 20 mEq. Due to her DKA she was transferred to the ICU for further care and stained glass joiner services consulted for additional management/recommendations.
Pt seen and evaluated this AM. She is having pain during nursing care, making it difficult to maneuver her. Her main complaint is having a dry throat. She otherwise denies SOB, abdominal pain, flank pain, nausea, vomiting, diarrhea, fevers or
chills. Heart rate 119, BP 123/69 and saturating 95% on room air. BG 274 this AM on 1/2NS and insulin gtt at 5units/hr. She has a gil that is inserted into her bladder stoma. She follows with a urologist in [place] (Dr. Raleigh ANGELES
Camilo), and normally gets care in [place] (lives in [place]), and was in [place] visiting family in [place]. [facility] accepted her for transfer. I discussed the case with the patient's parents, Lea Oneil + Kleber, who were both at bedside - all questions
were answered.
PMHx: Spina bifida s/p ventriculoatrial shunt with multiple revisions (most recently 2013), history of myelomeningocele, history of UTI with kidney stones requiring ureteroscopy in the past, self CIC via bladder stoma, hypertriglyceridemia, DM type
II on OAG and Ozempic, obesity, LINH on CPAP, sacral decubitus ulcer stage III
PSHx: VA shunt, ureteroscopy, Mohs surgery, bladder stoma creation for self-catheterization
Past Medical History
Past Medical History: Other (Above as per HPI)
Past Surgical History: Other (Above as per HPI)
Social History
Tobacco: Non-smoker
Alcohol: None
Drug: None
Personal: Single
Living: With Family
Family History
Family History: Reviewed & Not Pertinent
Allergies / Home Medications
Allergies
Allergy/AdvReac Type Severity Reaction Status Date / Time
latex Allergy Itching Verified 03/24/24 12:17
Home Medications
�Medication �Instructions �Recorded �Confirmed �Last Taken �Type
Vitamin C 1 tab PO BIDWMEAL 03/24/24 03/24/24 03/24/24 History
atorvastatin 40 mg tablet 40 mg PO QPM 03/24/24 03/24/24 03/23/24 History
azelastine 137 mcg (0.1 %) nasal 1 spray intranasal BIDPRN PRN 03/24/24 03/24/24 Unknown History
spray congestion
chlorthalidone 25 mg tablet 25 mg PO DAILY 03/24/24 03/24/24 03/24/24 History
desmopressin 0.2 mg tablet 0.2 mg PO QIDPRN PRN diabetes 03/24/24 03/24/24 Unknown History
insipidus symptoms
desmopressin 10 mcg/spray (0.1 mL) 1 spray intranasal BID 03/24/24 03/24/24 03/24/24 History
nasal spray (non-refrigerated)
fenofibrate 160 mg tablet 160 mg PO HS 03/24/24 03/24/24 03/23/24 History
glimepiride 2 mg tablet 2 mg PO BID 03/24/24 03/24/24 03/24/24 History
guaifenesin 1,200 mg tablet, 1,200 mg PO DAILY 03/24/24 03/24/24 03/24/24 History
extended release 12 hr (Mucinex)
methenamine hippurate 1 gram tablet 1 g PO BIDWMEAL 03/24/24 03/24/24 03/24/24 History
mirabegron 50 mg tablet,extended 50 mg PO DAILY 03/24/24 03/24/24 03/24/24 History
release 24 hr (Myrbetriq)
semaglutide 1 mg/dose (4 mg/3 mL) 1 mg SC LARSON 03/24/24 03/24/24 Unknown History
subcutaneous pen injector (Ozempic)
Review of Systems
-
History Source: Patient
All other systems: Negative unless noted
Vitals / Labs / Diagnostic Testing
Vital Signs
Temp Pulse Resp BP Pulse Ox
100.4 F H 120 35 135/86 95
03/25/24 07:24 03/25/24 07:43 03/25/24 05:00 03/25/24 07:43 03/25/24 09:18
Lab Data
03/25/24 06:46
03/25/24 06:46
Laboratory Results
03/24/24 03/24/24
15:59 22:08
PT 16.2 H
INR 1.27
APTT 26.8
Diagnostic Testing:
Physical Exam
-
HEENT: Normocephalic, Anicteric and Other (Dry mucous membranes)
Cardiovascular: S1/S2, Murmur (negative), Peripheral Edema (negative) and Other (Tachycardic)
Respiratory: Clear, Wheeze (negative), Rales (negative), Rhonchi (negative) and Non-Labored Respirations
GI: Soft, Non Distended, Non Tender and Normal Bowel Sounds
Neurology: AO x 3 and Tremors (negative)
Skin: Warm, Dry and Other (Lower extremities are inverted and contracted)
General: Respiratory Distress (negative), Comfortable, Fever (negative), Chills (negative) and Other (Female in no acute distress, pleasant mood)
Assessment
-
Assessment: 38-year-old female with a past medical history of spina bifid s/p VA shunt with multiple revisions (most recently 2013), history of myelomeningocele, contracted lower extremities which are inverted, history of UTI with kidney stone,
self CIC via bladder stoma, hypertriglyceridemia, DM type II on oral antiglycemic's, obesity, and LINH on CPAP who presents with right flank swelling with reduced PO intake and malaise. 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
No recent illness although she is around her young niece who may have been sick recently. In the ER she was initially afebrile to 98.2 �F, tachycardic with pulse rate 127, breathing at 16 breaths/min, BP 117/90 and saturating 98% on room air.
Initial labs showed leukocytosis to 18.6, anemia to 11.7, thrombocytosis to 429, hyponatremia to 133, glucose 421, lactate 1.6, urinalysis slightly cloudy with +1 ketones and trace leukocyte esterase, with beta-hydroxybutyrate elevated at 2.54.
Blood cultures collected. CT chest/abdomen/pelvis with contrast performed showing a large 14 cm centrally cystic exophytic mass extending from the right kidney to the posterior abdominal wall. Also multiple nonobstructing right intrarenal calculi
with severe diffuse muscular atrophy, a small right pleural effusion with small subcentimeter solid pulmonary nodules in the right apex, RLL + LLL. In the ER she was given IVF with 1 L NS 0.9%, Zosyn, started on insulin drip and started on
maintenance IVF with NS 0.9% + KCl 20 mEq. Due to her DKA she was transferred to the ICU for further care and stained glass joiner services consulted for additional management/recommendations.
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
hypertriglyceridemia, DM type II on OAG and Ozempic, obesity, LINH on CPAP, sacral decubitus ulcer stage III
Impression:
#DM type II (HbA1C: 10.3 - 03/24/2024) c/b hyperglycemia with increased anion gap with positive urinary ketones suspected for early DKA
#14 cm exophytic cystic mass extending from posterior cortex of the right kidney to posterior abdominal wall - suspected renal abscess vs pyelonephritis vs cystic renal cell carcinoma
#Small right sided pleural effusion - likely due to right renal abscess with translocation of fluid into pleural space
#Metabolic alkalosis (serum HCO3 is greater than expected given the above)
#Leukocytosis
#Anemia
#Abnormal urinalysis with slightly cloudy urine and trace leukocyte esterase with many urine bacteria suspicious for UTI - of note she denies dysuria, lower abd pain, or urinary/vaginal discharge
#History of spina bifida s/p VA-shunt s/p multiple revisions (last in 2013)
#Multiple pulmonary nodules (subcentimeter in the right apex, and bilateral lower lobes)
#Bladder stoma/self CIC at home now s/p Gil placed in ER
#LINH on CPAP
#Obesity (BMI: 33.8)
Plan:
- Continue with insulin drip with crystalloids, currently on 1/2NS --> raise rate to 150cc/hr
- q4hr BMP, Mg and PO4
- Avoid hypoglycemia and hypokalemia
- q1hr fingersticks while on insulin gtt
- Change to hyperglycemic protocol; diabetic GAS PUMPING STATION OPERATOR consulted
- Once AG<12 x2 with BG<200 and serum HCO3>18 then would bridge off insulin gtt, keeping in mind that she has received approximately 100 units over the last 24 hrs
- Maintain SpO2 >90-94%
- Continue with CPAP with sleep (she brought her own machine)
- Given concern for renal abscess, continue broad spectrum ABx
- Currently on Zosyn
- Follow up blood Cx (collected 03/24); check urine Cx
- Awaiting IR percutaneous drainage of exophytic R-renal mass --> will need drain to effectively remove all abscess contents and send off for cultures
- She may need ID consult - defer to hospitalist
- If she deteriorates or becomes febrile or if WBC remains elevated, then will check chest US to see if R-pleural effusion needs to be drained at all
- Urology consulted --> they believe that this is a large perirenal abscess. A 14 Czech catheter was placed into the patient's bladder via her stoma; continue this and monitor UOP
- Maintain MAP>65
- Replete electrolytes with K>4, Mg>2
- Maintain euglycemia with goal BG 140-180
- Trend H/H and transfuse if needed to keep Hb>7g/dL; keep plt>20k, unless there is concern for bleeding then keep plt>50k
- prn nebulized bronchodilators - not currently bronchospastic
- Incentive spirometer encouraged 10x per hour for at least 4 hrs a day
- Obtain outpatient medical records from her neurosurgeon at [place], [place]
- DVT ppx
Outpatient follow-up recommended for her multiple pulmonary nodules. She is low risk given no personal history of malignancy, non-smoker and nodules are <8-10 mm in size.
I discussed the case with the Neurosurgery PA, Bruna after calling her neurosurgeon's office (Dr. Bailey - [phone]). Neurosurgery team is in agreement with our plan. Of note, pt is awaiting TRX to [facility] once bed is available. A neurosurgeon
at [facility] who worked along Dr. Bailey is Dr. Ildefonso Milner. The mother, Lea Oneil, did say that if we have control of the patient here with no intervention that will be done differently at [facility], then she would like the patient to remain here at
[facility] and would consider canceling the transfer.
Critical care statement: A total of 47 minutes of critical care time was provided for this patient today. This includes management of unstable vital signs, evaluation of the patient at bedside, reviewing the patient's pertinent medical records
including radiographs, microbiology, laboratory evaluations, and discussion with primary team, consultants, pharmacy, nutrition, physical therapy, case management, charge nurse, critical care nursing, and respiratory therapy.
Data:
CT Chest/Abd/Pelvis with IV contrast 03/24/2024:
CHEST:
1. Small right pleural effusion.
2. Small subcentimeter solid pulmonary nodules. Diagnostic possibilities are (1) infectious or inflammatory pulmonary nodules or (2) pulmonary metastatic disease.
3. Severe right convex curvature of the thoracolumbar junction.
4. Multilevel vertebral body anomalies in the upper thoracic spine.
5. Catheter in the upper thoracic central spinal canal.
ABDOMEN and PELVIS:
1. LARGE 14.0 cm CENTRALLY CYSTIC MASS exophytic from the posterior cortex of the RIGHT KIDNEY and extending posteriorly through the posterior abdominal wall. Diagnostic possibilities are (1) a LARGE RIGHT RENAL ABSCESS and acute right
pyelonephritis or (2) cystic renal cell carcinoma (less likely given the patient's age).
2. Multiple nonobstructing right intrarenal calculi.
3. Moderate amount of fecal material throughout the colon.
4. Neurogenic bladder.
5. Severe congenital sacral dysraphism with a large spina bifida defect in the lower lumbar spine and calcification throughout the thecal sac of the lumbar spinal canal.
6. Severe diffuse muscle atrophy.
--- NOTE | 2024-03-25 08:36 | W.PN.HOSP.TC ---
Today's Communication/Plan
-
Continue antibiotics
Await cultures
IR consult
Transition off insulin drip
Discontinue further IV fluids
Resume diet
Transfer to [place]
Assessment / Plan
Assessment / Plan
Gen-AAOx3, NAD
HEENT-NC, AT, anicteric, clear oral mm
Neck-supple
CV-reg, no M, +S1/S2
Lungs-clear B/L
Abd-soft, NT, ND
Ext-no edema
Musculoskeletal-no cyanosis, clubbing
Skin-warm and dry
Neuro-grossly non-focal
Psych-calm, cooperative
DM2 with DKA -not on insulin at home. Uses Ozempic subcutaneously once weekly, glimepiride 2 mg twice daily at home. Does not check glucoses at home. Hemoglobin A1c pending. Bicarbonate normal, anion gap normal. Transition off IV insulin, start
basal/bolus insulin. Start diet this morning. Diabetes education.
Sepsis due to right-sided pyelonephritis/abscess -hemodynamically improving. Check blood cultures, urine culture to be sent. Continue empiric antibiotics. Awaiting drain placement for right perirenal abscess. IR consulted.
CT scan confirms 14 cm centrally cystic mass exophytic from the posterior cortex of the right kidney. Differential diagnosis is pyelonephritis with abscess, less likely renal cell carcinoma.
Discussed with urology, transfer to [facility] when bed available. She was excepted. Patient signed consent. Reason for transfer is complicated pyelonephritis in setting of spina bifida and prior abdominal surgery.
Nephrolithiasis -multiple nonobstructing right intrarenal calculi noted on CT.
Neurogenic bladder -history of urinary reconstruction. Has Sellers catheter through abdominal stoma, self catheterizes at home.
Spina bifida -s/p CLINICAL NURSE LEADER shunt, history of multiple revisions, most recent was 2013. Shunt catheter appears fractured on x-ray, will need surgical follow-up.
LINH -on CPAP.
Hyperlipidemia
Essential hypertension -controlled.
Stage III sacral decubital wound
Obesity due to excess calories
Full code
Dispo -stable for transfer to [facility].
Anticipated Discharge: Within 24 hours
Subjective/Interval History
-
Date of Service: March 25, 2024
Patient seen and examined. Overall feeling better, no complaints.
Objective Data
-
Labs:
Laboratory Results
03/24/24 03/24/24 03/25/24
22:08 23:38 01:49
WBC
Hgb
Hct
Plt Count
APTT 26.8
Sodium 140 Cancelled 138
Potassium 3.6 Cancelled 3.4 L
Chloride 102 Cancelled 102
Carbon Dioxide 26 Cancelled 26
BUN 10 Cancelled 10
Creatinine 0.3 L Cancelled 0.3 L
Glucose 236 H Cancelled 305 H
Calcium 8.9 Cancelled 8.2 L
03/25/24 03/25/24
06:04 06:46
WBC Cancelled 12.0 H
Hgb Cancelled 9.7 L
Hct Cancelled 30.4 L
Plt Count Cancelled 343 D
APTT
Sodium 142 141
Potassium 4.0 3.9
Chloride 104 102
Carbon Dioxide 29 30
BUN 9 9
Creatinine 0.3 L 0.3 L
Glucose 277 H 292 H
Calcium 8.6 8.7
Vital Signs:
Vital Signs
Temp Pulse Resp BP Pulse Ox
100.4 F H 120 35 135/86 96
03/25/24 07:24 03/25/24 07:43 03/25/24 05:00 03/25/24 07:43 03/25/24 05:00
I&O
03/24/24 03/25/24 03/26/24
06:59 06:59 06:59
Intake Total 2183 / 2337 154 / 154
Output Total 2049 300 / 300
Balance 133 / -13 -146 / -146
Review of Systems
-
History Source: Patient
All other systems: Reviewed and negative
--- NOTE | 2024-03-25 09:06 | PTCARENOTE ---
Diet order entered. Per IR keep NPO d/t possible drain/aspiration today. communicated to attending
[2024-03-25 09:21] LABS: Glucose - Point of Care 335 mg/dl (70-99)
[2024-03-25 09:34] LABS: Glycohemoglobin (HgbA1c) 10.3 % (4.0-5.6)
[2024-03-25 10:26] LABS: Glucose - Point of Care 274 mg/dl (70-99)
--- NOTE | 2024-03-25 10:37 | PTCARENOTE ---
grand rounds completed, changes to insulin orders. change in IVF. see MAR. Plan for IR, while also await bed at [facility]. pt in agreement. Family updated over phone. CB in reach.
--- NOTE | 2024-03-25 10:45 | WOUNDNOTE ---
COCCYX, SACRUM, BUTTOCKS
--- NOTE | 2024-03-25 10:47 | WOUNDNOTE ---
WON RN note: Patient admitted with diabetic ketoacidosis and abscess in R kidney.
See H&P for complete history. Lives with MOM, recently moved from [place].
PMH: Spina bifida, stage 3 sacral ulcers, recent Moh's procedure on R forehead.
Wound Location and type/assessment: Patient admitted with: Healing suspected stage 3 PI's on Coccyx/Sacrum, b/l buttocks. Mostly shallow with pink base, R buttock with veloz slough at base. No signs of infection from wounds. Mild MASD in
groin/abdominal skin folds. Had small formed BM during assessment. Heels are intact, L dorsal foot with non blanchable discolored skin. R lateral lower abdomen with suspected old drain site. Shallow small circular ulcer with undermining all around,
deepest at 6 O'clock 0.5cm. Patient expressed pain upon palpation of R abdomen. Nurse Francoise reports that patient is waiting for a bed at [place] for R kidney abscess. Patient attempts to assist with turning, moans when turning. Confirmed with patient
that she has an air mattress at home and gets out to a w/c daily with an offloading cushion. L forehead with Moh's surgical wound, unsure when done. Patient is using Xeroform and dry dressing on it, scant drainage, base veloz, no signs of infection.
Uses a fleece headband to protect wound.
Appetite: Patient reports good, encouraged protein in diet, states she is getting it at home.
Pressure redistribution devices in place: Air bed, keep on air mattress if transferred to floor. Pillow under calves.
Plan: Called [facility] for honey gel to start tomorrow on R outer buttock ulcer, all remaining ulcers silicone foam or Duoderm when closer to rectum. continue Xeroform and dry dressing to forehead ulcer.
Will confirm orders with hospitalist and update nurse. Updated care plan and will follow as needed.
Note to case management of equipment requested for discharge: Air mattress.
Recommend follow up at wound care center upon discharge.
--- NOTE | 2024-03-25 10:50 | WOUNDNOTE ---
LEFT DORSAL FOOT
--- NOTE | 2024-03-25 10:54 | WOUNDNOTE ---
RIGHT LATERAL ABDOMEN
[2024-03-25] MEDS: NOVOLIN R INSULIN INFUSION 100 IV (11:06)
[2024-03-25] MEDS: 0.45%NACL 1000 IV (11:06)
--- NOTE | 2024-03-25 11:36 | PN.DE.MGMTRT ---
Insulin Management
- -
03/25/2024 Diabetes Management Consult
Patient admitted 03/24 with c/o R flank pain and fever, found to be in DKA with GAP 16. Complex PMH: spina bifida w shunt and multiple revisions, nephrolithiasis, LINH w CPAP, self cath through stoma, stage 3 sacral ulcers, diabetes. She received
all of her care @ [facility], recently moved here, ~ 2 weeks ago. Prior to admission was taking 1 mg Ozempic weekly on Saturday, glimepiride 2 mg BID. A1C on admission 10.3%, cr .3, eGFR > 60.
Patient is awake alert and oriented, able to discuss diabetes. States she has had diabetes 5 years. Has not set up new primary doctor since move. She states she has a glucose monitor but doesn't use it.
Patient was on DKA protocol overnight, GAP now closed x 2. Insulin infusion has been @ 5 units per hour, glucose remained > 300. Discussed with Sports Umpire and nurse, will continue insulin infusion, change to critical care glycemic protocol. To
start in column 2 no bolus.
Discussed with patients nurse and Olga Lidia from pharmacy.
Patient for possible procedure in and or transfer to [place].
Diabetes History
- -
Type of Diabetes: 2
Pre-Admission Diabetes Regimen
03/24/24 03/24/24 03/24/24
12:25 15:59 17:11
Creatinine 0.4 L 0.4 L 0.4 L
03/24/24 03/24/24 03/24/24
19:15 22:08 23:38
Creatinine Cancelled 0.3 L Cancelled
03/25/24 03/25/24 03/25/24
01:49 06:04 06:46
Creatinine 0.3 L 0.3 L 0.3 L
Lab Results
Hemoglobin A1c 10.3 % (4.0-5.6) H 03/24/24 22:08
Insulin Pump Settings
IP Diabetes Regimen
03/24/24 03/24/24 03/24/24
12:25 15:59 17:11
Glucose 444 H 421 H 386 H
POC Glucose
03/24/24 03/24/24 03/24/24
19:15 19:26 20:36
Glucose Cancelled
POC Glucose 354 H 332 H
03/24/24 03/24/24 03/24/24
21:45 22:08 22:44
Glucose 236 H
POC Glucose 248 H 243 H
03/24/24 03/24/24 03/25/24
23:38 23:48 00:46
Glucose Cancelled
POC Glucose 288 H 318 H
03/25/24 03/25/24 03/25/24
01:48 01:49 02:49
Glucose 305 H
POC Glucose 314 H 302 H
03/25/24 03/25/24 03/25/24
03:41 04:48 06:02
Glucose
POC Glucose 297 H 306 H 295 H
03/25/24 03/25/24 03/25/24
06:04 06:46 07:01
Glucose 277 H 292 H
POC Glucose 309 H
03/25/24 03/25/24
09:10 10:14
Glucose
POC Glucose 335 H 274 H
Patient Education
[2024-03-25 11:41] LABS: Glucose - Point of Care 260 mg/dl (70-99)
--- NOTE | 2024-03-25 12:10 | CM ---
CM following re: discharge planning.
Reviewed pt's chart, met with pt.
Pt is a 38 year old female, admitted with primary dx of DM type II
Pt reports she lives with parents 1SH, no steps to enter. Pt reports she relied for care on her parents, w/c bound, has a hospital bed, RW, w.c, shower chair, commode. Pt stated she did not have any VN services in the past no caregiver services. Pt
stated her parents care for her.
Per MD, pt will be transferred to [facility], pt is accepted for transfer, awaiting a bed availability.
D/C plan: Transfer to [facility] due to complicated pyelonephritis in setting of spina bifida and prior abdominal surgery.
CM will follow to assist pt with transfer to [facility] as needed.
[2024-03-25 13:22] LABS: Glucose - Point of Care 159 mg/dl (70-99)
[2024-03-25] MEDS: LANTUS 0.3 UNITS SC (14:18)
[2024-03-25 14:28] LABS: Glucose - Point of Care 161 mg/dl (70-99)
--- NOTE | 2024-03-25 14:47 | PTCARENOTE ---
Insulin gtt and IVF stopped. blood glucose improving. family visiting. pt transported to IR.
--- NOTE | 2024-03-25 15:53 | W.PN.UPDATE ---
Update Note
Progress Note Update
- 10F drain placed into posterior R perinephric collection using ultrasound guidance. Anterolateral approach
- Thick/viscous brown purulent fluid aspirated. In total, 200 mL fluid aspirated. Samples sent.
- Attached to CLARISSA bulb. 10 mL flush daily.
--- NOTE | 2024-03-25 16:29 | PTCARENOTE ---
pt returned from IR. CLARISSA drain right lateral abd. dressing CDI. draining purulent drainage. Pt is awake and alert, denies any pain. contacting provider d/t tachycardia and low grade temp. BP stable. parents at bedside
[2024-03-25 16:57] LABS: Glucose - Point of Care 241 mg/dl (70-99)
[2024-03-25] MEDS: LOVENOX 40 MG SC (17:04)
[2024-03-25] MEDS: LIPITOR 40 MG PO (17:04)
[2024-03-25] MEDS: OFIRMEV 100 IV (17:05)
[2024-03-25] MEDS: NOVOLOG FLEXPEN-HIGH RESISTANCE 4 UNITS SC (17:09)
--- NOTE | 2024-03-25 18:33 | PTCARENOTE ---
Pt completed IV tylenol and ABT. remains Sinus tach. BP remains stable. denies pain. Dressing remains CDI. Family remains at bedside
--- NOTE | 2024-03-25 19:40 | PTCARENOTE ---
pt AAOx3 @ x's forgetful, sinus tach on the monitor, +pulses, +1 anasarca, diminished on RA SpO2 98% CPAP @ night, round obese BSx4, louise accessed through stoma yellow output, CLARISSA R Abd marcela colored output, dressing dry and intact, multiple wounds
and pressure sores on buttocks see worklist, 20G LFA, 20G LW, call harley within reach, able to make needs know otherwise refer to documentation,
[2024-03-25] MEDS: DDAVP NASAL SPRAY 1 SPRAY NASAL (20:00)
[2024-03-25] MEDS: LANTUS 0.2 UNITS SC (21:40)
[2024-03-25] MEDS: TRICOR 145 MG PO (21:41)
[2024-03-25 21:51] LABS: Glucose - Point of Care 203 mg/dl (70-99)
[2024-03-25] MEDS: NOVOLOG FLEXPEN 4 UNITS SC (22:05)
[2024-03-26] VITALS (28 sets, daily range): BP systolic 108–145; BP diastolic 64–99; BMI 34.2
--- NOTE | 2024-03-26 00:37 | PTCARENOTE ---
systems reviewed, 2129 blood sugar 203, MANUFACTURING ENGINEER ASSEMBLY notified, 4 units ordered, no changes from earlier assessment, otherwise refer to documentation.
[2024-03-26] MEDS: ZOSYN 50 IV ×4 (05:42→23:55)
[2024-03-26 05:50] LABS: Hemoglobin 8.8 g/dL (12.0-16.0); Mean Corp Hgb Conc. 31.4 g/dL (33.0-37.0); Mean Corpuscular Hgb 26.3 pg (27.0-31.0); Mean Corpuscular Volume 83.8 fL (81.0-99.0); Mean Platelet Volume 9.2 fL (7.4-10.4); Platelet Count 375 10^3/uL (130-400); Red Blood Cell Count 3.34 10^6/uL (4.20-5.40); Red Cell Dist. Width 15.8 % (11.5-14.5); White Blood Cell Count 9.9 10^3/uL (4.8-10.8)
[2024-03-26 06:14] LABS: Blood Urea Nitrogen 14 mg/dl (7-17); Calcium 8.2 mg/dl (8.4-10.2); Carbon Dioxide 30 mmol/L (22-30); Chloride 100 mmol/L (98-107); Estimated Creatinine Clearance 114 ml/min; Glucose 103 mg/dl (70-99); Potassium 3.4 mmol/L (3.5-5.1); Sodium 140 mmol/L (135-145); eGFR > 60.00
[2024-03-26 08:07] LABS: Glucose - Point of Care 112 mg/dl (70-99)
--- NOTE | 2024-03-26 08:07 | W.PN.INTV ---
Today's Communication / Plan
Recommendations
Up OOB as tolerated
Pain control
Monitor for VA-shunt dysfunction - STAPLES, visual changes, change in mental status, etc --> currently no signs of shunt dysfunction
Goal BG 140�180 with basal�bolus insulin dosing
May need to adjust Lantus dosing if BG above is not at goal
Call made out to neurosurgery team at [place] from [place] today and return phone call is pending
Patient is awaiting transfer to [place] once bed is available - I will call transfer center today and update them on plan of care
Follow-up species from GNR growing in blood culture + fluid culture
Outpatient pulmonary follow-up given her multiple pulmonary nodules
Patient is stable for downgrade out of ICU to telemetry. No additional recommendations at this time - Assembly Repairer/Pulmonary service will now sign off. Please reconsult if there are any additional questions/concerns, or if patient's respiratory
status deteriorates.
Assessment
-
Assessment: 38-year-old female with a past medical history of spina bifid s/p VA shunt with multiple revisions (most recently 2013), history of myelomeningocele, contracted lower extremities which are inverted, history of UTI with kidney stone,
self CIC via bladder stoma, hypertriglyceridemia, DM type II on oral antiglycemic's, obesity, and LINH on CPAP who presents with right flank swelling with reduced PO intake and malaise. Flank swelling occurred suddenly and was noticed tonight RESEARCH GROUP DIRECTOR.
No recent illness although she is around her young niece who may have been sick recently. In the ER she was initially afebrile to 98.2 �F, tachycardic with pulse rate 127, breathing at 16 breaths/min, BP 117/90 and saturating 98% on room air.
Initial labs showed leukocytosis to 18.6, anemia to 11.7, thrombocytosis to 429, hyponatremia to 133, glucose 421, lactate 1.6, urinalysis slightly cloudy with +1 ketones and trace leukocyte esterase, with beta-hydroxybutyrate elevated at 2.54.
Blood cultures collected. CT chest/abdomen/pelvis with contrast performed showing a large 14 cm centrally cystic exophytic mass extending from the right kidney to the posterior abdominal wall. Also multiple nonobstructing right intrarenal calculi
with severe diffuse muscular atrophy, a small right pleural effusion with small subcentimeter solid pulmonary nodules in the right apex, RLL + LLL. In the ER she was given IVF with 1 L NS 0.9%, Zosyn, started on insulin drip and started on
maintenance IVF with NS 0.9% + KCl 20 mEq. Due to her DKA she was transferred to the ICU for further care and mat tester services consulted for additional management/recommendations.
Chronic conditions RESEARCH GROUP DIRECTOR: Spina bifida s/p ventriculoatrial shunt with multiple revisions (most recently 2013), history of myelomeningocele, history of UTI with kidney stones requiring ureteroscopy in the past, self CIC via bladder stoma,
hypertriglyceridemia, DM type II on OAG and Ozempic, obesity, LINH on CPAP, sacral decubitus ulcer stage III
Impression:
#DM type II (HbA1C: 10.3 - 03/24/2024) c/b hyperglycemia with increased anion gap with positive urinary ketones suspected for early DKA - DKA now resolved
#14 cm exophytic cystic mass extending from posterior cortex of the right kidney to posterior abdominal wall - due to perinephric abscess
#Small right sided pleural effusion - likely due to right renal abscess with translocation of fluid into pleural space
#Metabolic alkalosis (serum HCO3 is greater than expected given the above)
#Leukocytosis - now resolved
#Anemia
#Abnormal urinalysis with slightly cloudy urine and trace leukocyte esterase with many urine bacteria suspicious for UTI - of note she denies dysuria, lower abd pain, or urinary/vaginal discharge
#History of spina bifida s/p VA-shunt s/p multiple revisions (last in 2013)
#Multiple pulmonary nodules (subcentimeter in the right apex, and bilateral lower lobes)
#Bladder stoma/self CIC at home now s/p Sellers placed in ER
#LINH on CPAP
#Obesity (BMI: 33.8)
Plan:
- Pt has been weaned off insulin drip; now on basal-bolus insulin dosing with goal BG 140-180mg/dL
- Diabetic ADVERTISING OPERATIONS MANAGER on board
- AC/HS fingersticks
- HbA1C: 10.3
- Maintain SpO2 >90-94%
- Continue with CPAP with sleep (she brought her own machine)
- Given concern for renal abscess, continue broad spectrum ABx
- Currently on Zosyn
- Follow up blood Cx species/sensitivities (collected 03/24 - growing GNR); urine Cx shows NGTD
- Fluid culture also growing GNR s/p IR percutaneous drainage on 03/25 of exophytic R-renal mass --> keep drain in place until drainage stops; may need additional imaging to assure entire abscess has been drained before CLARISSA drain is removed
- Follow up fluid Cx species/sensitivities
- ID consulted - recs appreciated
- If she deteriorates or becomes febrile or if WBC remains elevated, then will check chest US to see if R-pleural effusion needs to be drained at all
- Urology consulted --> agree that this is a large perirenal abscess. A 14 Kinyarwanda catheter was placed into the patient's bladder via her stoma; continue this and monitor UOP
- Maintain MAP>65
- Replete electrolytes with K>4, Mg>2
- Maintain euglycemia with goal BG 140-180
- Trend H/H and transfuse if needed to keep Hb>7g/dL; keep plt>20k, unless there is concern for bleeding then keep plt>50k
- prn nebulized bronchodilators - not currently bronchospastic
- Incentive spirometer encouraged 10x per hour for at least 4 hrs a day
- I requested outpatient medical records on 03/25 from her neurosurgeon at [place], [place]
- DVT ppx: LMWH
Outpatient follow-up recommended for her multiple pulmonary nodules. She is low risk given no personal history of malignancy, non-smoker and nodules are <8-10 mm in size.
On 03/25, Dr. Mercado discussed the case with the Neurosurgery PA, Bruna after calling her neurosurgeon's office (Dr. Bailey - [phone]). Neurosurgery team is in agreement with our plan. Of note, pt is awaiting TRX to [place] once bed is
available. A neurosurgeon at [place] [facility] who worked along Dr. Bailey is Dr. Ildefonso Milner. Given that the pt has positive blood Cx, she is at risk of her VA shunt becoming infected. THis is the main reason to be TRX to a tertiary care center. Transfer
to [place] is still pending as of 03/26/2024.
Patient is stable for downgrade out of ICU to telemetry. No additional recommendations at this time -Assembly Repairer/Pulmonary service will now sign off. Thank you for allowing us to be involved in the care of this patient. Please reconsult if there
are any additional questions/concerns, or if patient's respiratory status deteriorates.
Data:
CT Chest/Abd/Pelvis with IV contrast 03/24/2024:
CHEST:
1. Small right pleural effusion.
2. Small subcentimeter solid pulmonary nodules. Diagnostic possibilities are (1) infectious or inflammatory pulmonary nodules or (2) pulmonary metastatic disease.
3. Severe right convex curvature of the thoracolumbar junction.
4. Multilevel vertebral body anomalies in the upper thoracic spine.
5. Catheter in the upper thoracic central spinal canal.
ABDOMEN and PELVIS:
1. LARGE 14.0 cm CENTRALLY CYSTIC MASS exophytic from the posterior cortex of the RIGHT KIDNEY and extending posteriorly through the posterior abdominal wall. Diagnostic possibilities are (1) a LARGE RIGHT RENAL ABSCESS and acute right
pyelonephritis or (2) cystic renal cell carcinoma (less likely given the patient's age).
2. Multiple nonobstructing right intrarenal calculi.
3. Moderate amount of fecal material throughout the colon.
4. Neurogenic bladder.
5. Severe congenital sacral dysraphism with a large spina bifida defect in the lower lumbar spine and calcification throughout the thecal sac of the lumbar spinal canal.
6. Severe diffuse muscle atrophy.
Total time spent today was 76 minutes for this encounter. Time includes reviewing laboratory test/imaging results, reviewing pertinent medical records, obtaining and reviewing medical history, performing an appropriate exam, ordering medications,
tests and procedures. Time also includes documentation of this encounter, coordinating patient care and communicating with other healthcare professionals. Total time does not include separately billed tests performed on this date of service.
Subjective Dataa
Subjective Data
Date of Service:
Date of Service: March 26, 2024
Chief Complaint: Assembly Repairer Follow Up
Subjective:
Pt seen and evaluated this AM. Thick, brown fluid draining from right renal abscess. BP 117/72, SpO2 98% on room air. Wore her CPAP overnight. She is not on pressors. Patient's mother and father both at bedside � all questions were answered.
Denies STAPLES, visual changes, chest pain, SOB, abd pain, N/V/f/c.
Review of Systems
General: Other (Negative unless mentioned above)
Objective Data
Data Reviewed
Vital Signs / I&O / Oxygen:
Vital Signs
Temp Pulse Resp BP Pulse Ox
98.0 F 97 26 112/74 95
03/26/24 08:06 03/26/24 09:00 03/26/24 09:00 03/26/24 09:00 03/26/24 08:00
Intake and Output
03/25/24 03/26/24 03/27/24
06:59 06:59 06:59
Intake Total 2183 / 2337 2660 / 2660 120 / 120
Output Total 2049 / 0 3410 / 3410 45 / 45
Balance 133 / -13 -750 / -750 75 / 75
SaO2 95
Physical Exam
General: Respiratory Distress (negative), Comfortable, Chills (negative), Sweats (negative) and Other (Lower extremities are inverted and contracted)
HEENT: Normocephalic, Anicteric and Moist Mucous Membranes
Cardiovascular: S1-S2 and Peripheral Edema (negative)
Respiratory: Clear, Wheeze (negative), Crackles (negative), Rhonchi (negative), Accessory Resp Muscle Use (negative) and Stridor (negative)
GI: Soft, Distended (Abdominal obesity), Non Tender and Normal Bowel Sounds
Neurology: AO x 3 and Tremors (negative)
Skin: Warm, Dry, Cyanosis (negative), Jaundice (negative) and Other (Right-sided CLARISSA drain with milky/pink viscous fluid in bulb)
Labs/Micro/Reports
Lab Data
03/26/24 05:35
03/26/24 05:35
Microbiology
03/25/24 15:45 Fluid Gram Stain - Preliminary
03/24/24 15:59 Blood/Venous Blood Culture - Preliminary
No Growth in 24 hours- Final report to follow
03/24/24 15:59 Blood/Venous Blood Culture - Preliminary
Positive culture in progress
03/24/24 15:59 Blood/Venous Gram Stain - Preliminary
--- NOTE | 2024-03-26 08:17 | PN.DE.MGMTRT ---
Insulin Management
- -
03/26/2024 Diabetes Management Consult Follow up
Patient admitted 03/24 with c/o R flank pain and fever, found to have perirenal abscess, also found to be in DKA with GAP 16. Complex PMH: spina bifida w shunt and multiple revisions, nephrolithiasis, LINH w CPAP, self cath through stoma, stage 3
sacral ulcers, diabetes. She received all of her care @ [facility], recently moved here, ~ 2 weeks ago. Prior to admission was taking 1 mg Ozempic weekly on Saturday, glimepiride 2 mg BID. A1C on admission 10.3%, cr .3, eGFR > 60.
Patient is awake alert and oriented, able to discuss diabetes. States she has had diabetes 5 years. Has not set up new primary doctor since move. She states she has a glucose monitor but doesn't use it.
03/25 Patient was on DKA protocol overnight, GAP now closed x 2. Insulin infusion has been @ 5 units per hour, glucose remained > 300. Discussed with Metal Engineering Process Worker and nurse, will continue insulin infusion, change to critical care glycemic protocol.
To start in column 2 no bolus.
03/26 Patient transitioned from glycemic protocol to subcutaneous insulin, lantus 20 units BID with high corrective insulin. Glucose fasting this AM 112
I demonstrated prefilled insulin pen use and provided printed instructions with pictures for patient to refer to. She is somewhat reluctant and feels overwhelmed. Discussed with patients nurse asked that nursing reinforce pen use and supervise
patient self injecting. I left the glucose monitor in the room but patient was too overwhelmed to proceed with education.
Patient for possible transfer to [place].
Diabetes History
- -
Type of Diabetes: 2 requiring insulin
Pre-Admission Diabetes Regimen
03/26/24 03/26/24
04:08 05:35
Creatinine Cancelled 0.3 L
Lab Results
Hemoglobin A1c 10.3 % (4.0-5.6) H 03/24/24 22:08
Insulin Pump Settings
IP Diabetes Regimen
03/25/24 03/25/24 03/25/24
03:41 09:10 10:14
Glucose
POC Glucose 297 H 335 H 274 H
03/25/24 03/25/24 03/25/24
11:30 13:11 14:17
Glucose
POC Glucose 260 H 159 H 161 H
03/25/24 03/25/24 03/26/24
16:46 21:40 04:08
Glucose Cancelled
POC Glucose 241 H 203 H
03/26/24 03/26/24
05:35 07:56
Glucose 103 H
POC Glucose 112 H
Patient Education
[2024-03-26] MEDS: DDAVP NASAL SPRAY 1 SPRAY NASAL ×2 (08:25→20:43)
[2024-03-26] MEDS: Hygroton 25 MG PO (08:27)
[2024-03-26] MEDS: DETROL LA 4 MG PO (08:27)
[2024-03-26] MEDS: HIPREX 1 GRAM PO (08:27)
[2024-03-26] MEDS: MUCINEX 1200 MG PO (08:28)
[2024-03-26] MEDS: LANTUS 0.2 UNITS SC ×2 (08:28→21:33)
[2024-03-26] MEDS: VITAMIN C 500 MG PO ×2 (08:28→17:42)
--- NOTE | 2024-03-26 09:04 | PTCARENOTE ---
recd pt handoff at bedside, seen by Dr. Johnson. In good spirits, assessment as noted. CLARISSA draining viramontes thick cappucino colored, 45 ml. positioned for comfort, awaiting breakfast.
--- NOTE | 2024-03-26 09:29 | W.PN.URO.CBU ---
Today's Communication / Plan
-
continue drain/gil and antibx
Assessment / Plan
-
markus-renal abscess in pt with spina bifida/urinary reconstruction and ASSEMBLER GARMENT FORM shunt
s/p IR drainage
pt improved
continue iv antibx- blood and fluid cx pending
still feel pt is better served with transfer given complex nature of this situation- and if further intervention is required
for now- continue drain/antibx- would plan repeat ct in 72hrs depending on clinical course
did discuss with hospitalist and family
Diagnosis
-
Date of Service: March 26, 2024
-
Patient Diagnosis:
markus-renal abscess
IR drainage 03/25
Subjective
-
pt says she is feeling better
no fevers/wbc down
had IR drainage yesterday- over 200cc of pus removed/ CLARISSA drain still with purulent outpt
1 blood cx + for gram neg rods
gil in blader via stoma- clear
Objective
-
Vital Signs
Temp Pulse Resp BP Pulse Ox
98.0 F 97 26 112/74 95
03/26/24 08:06 03/26/24 09:00 03/26/24 09:00 03/26/24 09:00 03/26/24 08:00
Intake and Output
03/25/24 03/26/24 03/27/24
06:59 06:59 06:59
Intake Total 2183 / 2337 2660 / 2660 120 / 120
Output Total 2049 / 2349 3410 / 3410 45 / 45
Balance 133 / -13 -750 / -750 75 / 75
Intake:
Oral fluids 720 / 720 1180 / 1180 120 / 120
IV fluids (Total) 1363 / 1517 1170 / 1170
D5/0.45%NSS with KCL 20 MEQ 20 1325 / 1475 1130 / 1130
meq In 1,000 ml @ 150 mls/hr IV
.[id number] SAMY Rx#:[id number]
Insulin gtt 100u/100ml 38 / 42 40 / 40
NSS with KCL 20 MEQ 20 meq In 1 0 / 0
,000 ml @ 250 mls/hr IV .Q4H
SAMY Rx#:[id number]
IV piggybacks 100 / 100 300 / 300
Amount instilled into Drain (
Total)
Right Santos-Caruso
Output:
Drain Output (Total) 240 / 240 45 / 45
Right Santos-Caruso 240 / 240 45 / 45
Urine, Gil 1550 / 1850 3170 / 3170 0 / 0
Urine, Voided 500 / 500
Laboratory Results
03/26/24 05:35
03/26/24 05:35
Review of Systems
-
Constitutional: Fatigue
Respiratory: No Symptoms
Cardiac: No Symptoms
Abdomen/GI: No Symptoms
Physical Exam
-
General -no acute distress
Abdomen - soft, non-tender, gil in supra-pubic stoma, drain just above right hip- no erythema/creptius/etc- still some tenderness to palpation
[2024-03-26] MEDS: NOVOLOG FLEXPEN-HIGH RESISTANCE 1 UNITS SC (09:52)
[2024-03-26 12:34] LABS: Magnesium 1.8 mg/dl (1.6-2.3); Phosphorus 3.4 mg/dl (2.5-4.5)
--- NOTE | 2024-03-26 12:35 | W.PN.HOSP.TC ---
Today's Communication/Plan
-
Transfer to telemetry
ID consult
Await transfer to [place]
Assessment / Plan
Assessment / Plan
Gen-AAOx3, NAD
HEENT-NC, AT, anicteric, clear oral mm
Neck-supple
CV-reg, no M, +S1/S2
Lungs-clear B/L
Abd-soft, NT, ND
Ext-no edema
Musculoskeletal-no cyanosis, clubbing
Skin-warm and dry
Neuro-grossly non-focal
Psych-calm, cooperative
DM2 with DKA -not on insulin at home. DKA resolved. Off insulin drip.
Uses Ozempic subcutaneously once weekly, glimepiride 2 mg twice daily at home. Does not check glucoses at home. Hemoglobin A1c 10.3%.
Currently on Lantus insulin 20 units twice daily, high resistance aspart sliding scale. Diabetes RODEO PERFORMER following.
Sepsis due to right-sided pyelonephritis/abscess - hemodynamically improving. Blood cultures and body fluid cultures both positive for gram-negative bacilli. Continue IV Zosyn. ID consulted.
Drain was placed in abscess cavity 03/[address] scan confirms 14 cm centrally cystic mass exophytic from the posterior cortex of the right kidney. Differential diagnosis is pyelonephritis with abscess, less likely renal cell carcinoma.
Discussed with urology, transfer to [facility] when bed available. She was excepted. Patient signed consent. Reason for transfer is complicated pyelonephritis in setting of spina bifida and prior abdominal surgery.
Hypokalemia -magnesium is normal. Getting repleted.
Nephrolithiasis -multiple nonobstructing right intrarenal calculi noted on CT.
Neurogenic bladder -history of urinary reconstruction. Has Sellers catheter through abdominal stoma, self catheterizes at home.
Spina bifida -s/p CATALYST RECOVERY OPERATOR shunt, history of multiple revisions, most recent was 2013. Shunt catheter appears fractured on x-ray, will need surgical follow-up.
LINH -on CPAP.
Hyperlipidemia
Essential hypertension -controlled.
Stage III sacral decubital wound
Obesity due to excess calories
Full code
Dispo -stable for transfer to [facility]. I spoke with [place] transfer center today, they confirmed that she is on the list as a transfer, just waiting on a bed. Can transfer out of ICU today. Discussed with nursing and pulmonary,
urology.
Family updated at the bedside.
Anticipated Discharge: Within 24 hours
Subjective/Interval History
-
Date of Service: March 26, 2024
Patient seen/examined, no complaints. Denies back pain.
Objective Data
-
Labs:
Laboratory Results
03/26/24 03/26/24
04:08 05:35
WBC Cancelled 9.9
Hgb Cancelled 8.8 L
Hct Cancelled 28.0 L
Plt Count Cancelled 375
Sodium Cancelled 140
Potassium Cancelled 3.4 L
Chloride Cancelled 100
Carbon Dioxide Cancelled 30
BUN Cancelled 14
Creatinine Cancelled 0.3 L
Glucose Cancelled 103 H
Calcium Cancelled 8.2 L
Vital Signs:
Vital Signs
Temp Pulse Resp BP Pulse Ox
98.3 F 100 24 117/78 98
03/26/24 11:37 03/26/24 10:00 03/26/24 10:00 03/26/24 10:00 03/26/24 10:00
I&O
03/25/24 03/26/24 03/27/24
06:59 06:59 06:59
Intake Total 2183 / 2337 2660 / 2660 360 / 360
Output Total 2049 / 2349 3410 / 3410 145 / 145
Balance 133 / -13 -750 / -750 215 / 215
Review of Systems
-
History Source: Patient
All other systems: Reviewed and negative
[2024-03-26] MEDS: KCL 40 MEQ PO (12:41)
--- NOTE | 2024-03-26 13:20 | WOUNDNOTE ---
NKECHI RN NOTE: GRACY Negrete notified this sports writer of no wound order for forehead surgical wound. Nurse confirmed current wound care per patient's Mom who also requested to speak to wound care nurse. Updated wound care orders/care plan, will confirm with
hospitalist. Asked nurse if she can update discharge instructions as I am unable to access. Called patient's Mom Miriam at phone number [phone] provided. Message heard of 'Can not be completed as dialed.' Asked nurse to give Mom my extension
for her to call me, no call back received. Order is in for wound care and air mattress if patient transferred to floor. Will follow as needed.
[2024-03-26] MEDS: NOVOLOG FLEXPEN-HIGH RESISTANCE 7 UNITS SC (13:58)
[2024-03-26 14:05] LABS: Glucose - Point of Care 280 mg/dl (70-99)
--- NOTE | 2024-03-26 15:04 | PN.DIAED10 ---
Update Note
- Diabetes Education Update Note
Notes:
03/26/2024 Diabetes Management
Returned to bedside at nursing request, parents requested I speak with them. Mother with many questions: Can we get rid of this, will she always need insulin, what if she loses weight then we get rid of it, can she get a CGM.
Discussed patients diabetes care prior to admission, mother states it was never a problem, she took Ozempic once per week and glimepiride 2 mg BID. She did not check her blood sugar. Discussed that with A1C of 10.3 currently the Ozempic did not
help with weight loss or control glucose. Insulin would be most effective to help with wound healing. Discussed that with Medicare now that she is on insulin her doctor could submit 2 office notes and order the CGM and it most likely would be
covered. Mother stating she is not happy that they are here and had expected to be at [place] by now. Explained the process that [facility] has accepted patient but an bed must be available. Mother states she should have taken her back to [place] so Neuro
could order antibiotics. In an attempt to reassure her I did mention that ID was following and order antibiotics, her response: 'I don't have leah in them I have had 'run ins' with them before (not here but in [place]).
All questions answered.
--- NOTE | 2024-03-26 15:13 | PN.DE.MGMTRT ---
Insulin Management
- -
03/26/2024 Diabetes Management
Returned to bedside at nursing request, parents requested I speak with them. Mother with many questions: Can we get rid of this, will she always need insulin, what if she loses weight then we get rid of it, can she get a CGM.
Discussed patients diabetes care prior to admission, mother states it was never a problem, she took Ozempic once per week and glimepiride 2 mg BID. She did not check her blood sugar. Discussed that with A1C of 10.3 currently the Ozempic did not
help with weight loss or control glucose. Insulin would be most effective to help with wound healing. Discussed that with Medicare now that she is on insulin her doctor could submit 2 office notes and order the CGM and it most likely would be
covered. Mother stating she is not happy that they are here and had expected to be at [place] by now. Explained the process that [place] has accepted patient but an bed must be available. Mother states she should have taken her back to [place] so Neuro
could order antibiotics. In an attempt to reassure her I did mention that ID was following and order antibiotics, her response: 'I don't have leah in them I have had 'run ins' with them before (not here but in [place]).
All questions answered.
This note is also in Education notes
Diabetes History
- -
Type of Diabetes: 2 requiring insulin
Pre-Admission Diabetes Regimen
03/26/24 03/26/24
04:08 05:35
Creatinine Cancelled 0.3 L
Lab Results
Hemoglobin A1c 10.3 % (4.0-5.6) H 03/24/24 22:08
Insulin Pump Settings
IP Diabetes Regimen
03/25/24 03/25/24 03/26/24
16:46 21:40 04:08
Glucose Cancelled
POC Glucose 241 H 203 H
03/26/24 03/26/24 03/26/24
05:35 07:56 13:53
Glucose 103 H
POC Glucose 112 H 280 H
Meal type: Breakfast
Amount consumed: 100%
Patient Education
[2024-03-26] MEDS: TYLENOL 650 MG PO (15:53)
--- NOTE | 2024-03-26 16:03 | PTCARENOTE ---
1200 family remains, updated, skin care. seen by diabetic ed
1330 ordered lunch, glucose noted, pt self-administered insulin per sliding scale, discussed, min assistance and maximum emotional support needed.
1600 turned, repositioned, support given. wound care orders for forehead, wound care performed. aware of plans for the shift. awaiting tele bed.
--- NOTE | 2024-03-26 16:20 | CON.ID ---
Consultation
-
Date/Time Consultation Requested: 03/26/2024 0915
Date/Time Consultation Performed: 03/26/2024 1545
Requesting Provider: Dr. Torres
Performing Provider: Dr. Campos
Reason for Consultation: Sepsis
Chief Complaint / Past History
History of Present Illness
Tisha Vargas is a 38-year-old female with a significant past medical history of spina bifida, Hx SENIOR PRODUCTION MANAGER shunt and Hx nephrolithiasis being evaluated at the request of Dr. Torres in regards to clinical sepsis. History is obtained from chart
review, along with patient interview.
The patient presents to [facility] on 03/24/2024 after the sudden onset of flank swelling beginning the night prior. The right-sided flank swelling was noticed by the patient's mother after noting that the patient moaned every time she
rested her back on the wheelchair.
Workup in the ER revealed tachycardia, along with leukocytosis. CT imaging revealed a 14 cm mass extending through the posterior abdominal wall suspected to be a large right renal abscess. The patient was admitted to the hospital and subsequently
underwent IR drainage of the collection, with recovery of 200 cc of purulent fluid. A drain was maintained. Blood cultures obtained at the time of admission are now positive for gram-negative rods, and Infectious Diseases is asked to comment on
further antimicrobial management.
Past History
Additional Past Medical History:
Spina bifida
Nephrolithiasis
DM
LINH
Urinary retention with chronic self-catheterization
Additional Past Surgical History:
VA shunt (most recent revision: 2013)
Nephrolithiasis surgery
Mohs surgery
Stoma creation for self-catheterization
Allergy History:
latex Allergy (Verified 03/24/24 12:17)
Itching
Medications Reviewed: Yes
Current Antibiotics:
Zosyn 3.375 g IV every 6 hours
Methenamine
Social History
Tobacco: Non-Smoker
Alcohol: None
Drug: None
Personal: Single
Living: With Family
Employment: Not Employed
Family History
Family History: Not Pertinent
Review of Systems
Vital Signs
Temp Pulse Resp BP Pulse Ox
99.3 F 100 24 117/78 98
03/26/24 15:37 03/26/24 10:00 03/26/24 10:00 03/26/24 10:00 03/26/24 10:00
Physical Exam
Physical Exam
Constitutional: No Acute Distress, Comfortable, Chronically Ill, Non-toxic and Obese
Eyes: Pupils Equal, Pupils Round and Sclera Anicteric
Oral: No Thrush and No Ulcers
Cardiovascular: Regular Rate and S1/S2; Negative S3/S4
Pulmonary: Clear; Negative Wheezes, Rales or Rhonchi
Gastrointestinal: Soft, Distended, Normal Bowel Sounds, No Rebound and No Guarding
Genito-Urinary: Sellers and Clear Urine; Negative Turbid Urine or Hematuria
Skin: Negative Rash or Jaundice
Wound: Other (Right hip pressure wound; dressed. No periwound erythema.)
Neurological: Awake and Alert
Psychological: Calm
Lab / Diagnostic Study Results
03/26/24 05:35
03/26/24 05:35
Abs Immat Gran (auto) 0.5 10^3/uL (0-0.05) H 03/24/24 12:25
Absolute Neuts (auto) 14.4 10^3/uL (1.4-6.5) H 03/24/24 12:25
Absolute Lymphs (auto) 2.4 10^3/uL (1.2-3.4) 03/24/24 12:25
Absolute Monos (auto) 1.2 10^3/uL (0.1-0.6) H 03/24/24 12:25
Absolute Basos (auto) 0.1 10^3/uL (0-0.2) 03/24/24 12:25
Immature Gran % 2.7 % (0-0.5) H 03/24/24 12:25
Neutrophils % 77.3 % (42.2-75.2) H 03/24/24 12:25
Lymphocytes % 12.9 % (20.5-51.1) L 03/24/24 12:25
Monocytes % 6.2 % (1.7-9.3) 03/24/24 12:25
Eosinophils % 0.3 % (0-6) 03/24/24 12:25
Basophils % 0.6 % (0-2) 03/24/24 12:25
PT 16.2 Sec (11.4-14.6) H 03/24/24 15:59
INR 1.27 03/24/24 15:59
Lactic Acid 1.6 mmol/L (0.7-2.0) 03/24/24 15:59
Urine WBC 3-5 /HPF (0-5) 03/24/24 15:59
Microbiology Results
Micro:
03/24/24 15:59 Blood Culture - Preliminary
Blood/Venous No Growth in 48 hours- Final report to follow
03/26/24 10:49 MRSA Screen - Pending
Nose
03/24/24 15:59 Blood Culture - Preliminary
Blood/Venous Gram negative bacilli
Gram Stain - Preliminary
03/25/24 15:45 Body Fluid Culture - Preliminary
Fluid Gram negative bacilli
Gram Stain - Preliminary
03/26/24 04:08 Urine Culture - Pending
Urine
Imaging:
03/24/2024 CT chest/abdomen/pelvis with IV contrast: In the chest a small right pleural effusion is noted. There is a small subcentimeter solid pulmonary nodule. Severe right convex curvature of the thoracolumbar junction. Multilevel vertebral
body anomaly in the upper thoracic spine. In the abdomen and pelvis a large 14 cm centrally cystic mass exophytic from the posterior cortex of the right kidney and extending posteriorly through the posterior abdominal wall is noted. Multiple
nonobstructing right intrarenal calculi are seen. Moderate amount of fecal material throughout the colon. A neurogenic bladder is noted. Please see full dictation for additional detail. Film personally viewed.
Assessment / Plan
Large right renal abscess;
- status post drainage; 200cc purulent fluid recovered
- Cx's with GNR's
Leukocytosis
Hx flank pain
DM; uncontrolled (HbA1c = 10.3)
Hx nephrolithiasis
Urinary retention; chronic self-catheterization via stoma
Spina bifida
Obesity
LINH
Recommendations:
Continue Zosyn for the present.
Further methenamine can be discontinued.
Await further culture data to guide antimicrobial selection and de-escalation.
Monitor white count and temperature curve for clinical improvement. If white count persists, or patient develops further fevers, would repeat blood cultures.
Continue to monitor right flank drain output.
Continue with supportive care.
Monitor for clinical improvement.
--- NOTE | 2024-03-26 17:15 | TRANSFER ---
report to next RN. placed in new bed with air overlay. transferred to room 424 via bed with all belongings, mother, cart, and updates about care and plan. I/O tallied.
[2024-03-26 17:33] LABS: Glucose - Point of Care 317 mg/dl (70-99)
[2024-03-26] MEDS: NOVOLOG FLEXPEN-HIGH RESISTANCE 10 UNITS SC (17:41)
[2024-03-26] MEDS: LOVENOX 40 MG SC (17:42)
[2024-03-26] MEDS: LIPITOR 40 MG PO (17:42)
--- NOTE | 2024-03-26 17:52 | W.PN.UPDATE ---
Update Note
Progress Note Update
Notified by SUBMARINE DIVER, Penelope, to call the transfer center at [place] as tttaniya is no longer an accepting doctor now that the pt has been downgraded out of the ICU. I called the [facility] transfer center - spoke with Dr. Sinclair and explained the clinical status
and hospital course of the patient. He agrees that the patient is improving, and that there is no current concern for clinical deterioration as her DKA is resolved and she is no longer febrile and her WBC has normalized, with no signs of symptoms
of VA-shunt dysfunction. Transfer is now canceled. Dr. Sinclair advised to me that if the pt does deteriorate or if there becomes a concern for VA-shunt dysfunction, to call the [facility] transfer center back and we can restart the transfer process. I
updated the ICU nurse, the primary hospitalist as well as the patient's nurse on the floor.
[2024-03-26] MEDS: HIPREX PO (17:53)
--- NOTE | 2024-03-26 19:09 | W.PN.UPDATE ---
Update Note
Progress Note Update
I called and updated the mother about the cancelation of the TRX to [facility]. She was very understanding. All questions were answered.
[2024-03-26 20:59] LABS: Glucose - Point of Care 279 mg/dl (70-99)
[2024-03-26] MEDS: TRICOR 145 MG PO (21:33)
[2024-03-27] MEDS: TYLENOL 650 MG PO ×2 (02:09→22:37)
[2024-03-27 03:13] VITALS: BP 152/98
[2024-03-27] MEDS: ZOSYN 50 IV (05:23)
--- NOTE | 2024-03-27 06:58 | W.PN.URO.CBU ---
Today's Communication / Plan
-
continue drain and iv antibx
Assessment / Plan
-
markus-renal abscess in pt with spina bifida/urinary reconstruction and EVENTS INTERN shunt
s/p IR drainage
pt improved
continue iv antibx- blood and fluid cx pending
it appears that outside of my recommendation- transfer has been cancelled- my concern is that although pt is improved with the abscess drainage and antibx- it may not resolve- which in this patient from at the least a urologic standpoint- would
require a tertiary center
will continue current course- await cx's- repeat CT on Saturday
eventual plan- if remains stable- would be for discharge with drain and antibx course per ID
Diagnosis
-
Date of Service: March 27, 2024
-
Patient Diagnosis:
markus-renal abscess
IR drainage 03/25
Subjective
-
pt out of ICU
clinically improving
still moderate amount of pus draining from IR placed LADARIUS
urine clear
cx's still pending
Objective
-
Vital Signs
Temp Pulse Resp BP Pulse Ox
97.6 F 93 16 152/98 97
03/27/24 03:13 03/27/24 03:13 03/27/24 03:13 03/27/24 03:13 03/27/24 03:13
Intake and Output
03/25/24 03/26/24 03/27/24
06:59 06:59 06:59
Intake Total 2183 / 2337 2660 / 2660 1250 / 1250
Output Total 2049 / 0 3410 / 3410 1525 / 1525
Balance 133 / -13 -750 / -750 -275 / -275
Intake:
Oral fluids 720 / 720 1180 / 1180 1200 / 1200
IV fluids (Total) 1363 / 1517 1170 / 1170
D5/0.45%NSS with KCL 20 MEQ 20 1325 / 1475 1130 / 1130
meq In 1,000 ml @ 150 mls/hr IV
.[id number] [facility] Rx#:[id number]
Insulin gtt 100u/100ml 38 / 42 40 / 40
NSS with KCL 20 MEQ 20 meq In 1 0 / 0
,000 ml @ 250 mls/hr IV .Q4H
[facility] Rx#:[id number]
IV piggybacks 100 / 100 300 / 300 50 / 50
Amount instilled into Drain (
Total)
Right Santos-Caruso
Output:
Drain Output (Total) 240 / 240 125 / 125
Right Santos-Caruso 240 / 240 125 / 125
Urine, Gil 1550 / 1850 3170 / 3170 1400 / 1400
Urine, Voided 500 / 500
Laboratory Results
03/26/24 05:35
Review of Systems
-
Constitutional: Fatigue
Respiratory: No Symptoms
Cardiac: No Symptoms
Abdomen/GI: No Symptoms
Physical Exam
-
General - no acute distress
Abdomen - soft, obese, non-tender- gil in stoma- ladarius in place- right flank less tender
[2024-03-27 07:00] VITALS: BP 154/92
--- NOTE | 2024-03-27 07:43 | PN.DE.MGMTRT ---
Insulin Management
- -
03/27/2024: Diabetes Management F/U:
38 year old female admitted 03/24 with c/o R flank pain and fever, found to be in DKA with GAP 16.
Complex PMH:Spina bifida w shunt and multiple revisions, nephrolithiasis, LINH w/CPAP, self cath through stoma, stage 3 sacral ulcers, diabetes. She received all of her care @ [facility], recently moved here, ~ 2 weeks ago. States she has had diabetes 5
years. Has not set up new primary doctor since move. She states she has a glucose monitor but doesn't use it. Prior to admission was taking 1 mg Ozempic weekly on Saturday, glimepiride 2 mg BID. A1C on admission 10.3%, Cr 0.3, eGFR > 60.
Patient is awake, alert and oriented, offers no complaints, able to discuss diabetes mgt. No family at bedside
Patient was transitioned off DKA protocol on 03/25 to SQ insulin.
Premeal glucose levels remain elevated, trended up to 317 at dinner time with a bedtime blood sugar of 279, requiring 1-10 units of corrective insulin.
Will start AC NovoLog 10 units. Cont Lantus 20 units BID and moderate corrective.
Discussed with pt and instructed her not to resume the glimepiride up return home.
Patient for possible procedure in and or transfer to [facility].
Discussed with Pt's Nurse at bedside
Diabetes History
- -
Type of Diabetes: 2 requiring insulin
Pre-Admission Diabetes Regimen
Lab Results
Hemoglobin A1c 10.3 % (4.0-5.6) H 03/24/24 22:08
Insulin Pump Settings
IP Diabetes Regimen
03/26/24 03/26/24 03/26/24
07:56 13:53 17:32
POC Glucose 112 H 280 H 317 H
03/26/24
20:57
POC Glucose 279 H
Meal type: Breakfast
Amount consumed: 100%
Patient Education
[2024-03-27 08:17] LABS: Hematocrit 30.7 % (37.0-47.0); Hemoglobin 9.4 g/dL (12.0-16.0); Mean Corp Hgb Conc. 30.6 g/dL (33.0-37.0); Mean Corpuscular Hgb 26.3 pg (27.0-31.0); Platelet Count 406 10^3/uL (130-400); Red Blood Cell Count 3.57 10^6/uL (4.20-5.40); Red Cell Dist. Width 15.5 % (11.5-14.5); White Blood Cell Count 8.5 10^3/uL (4.8-10.8)
[2024-03-27 08:33] LABS: Glucose - Point of Care 155 mg/dl (70-99)
--- NOTE | 2024-03-27 08:46 | WOUNDNOTE ---
NKECHI RN NOTE: Spoke with Mom Miriam as requested. Reviewed wound care for all wounds with Mom. All wound care good states Mom except forehead wound dressing should be done twice a day, per plastic surgeon's order. Will update wound care order and
inform nursing. RUFINA Polo is checking to make sure patient is on appropriate air mattress this morning as patient was transferred from ICU to [facility]. Mom made aware of this and answered all questions, will follow as needed.
[2024-03-27] MEDS: DDAVP NASAL SPRAY 1 SPRAY NASAL ×2 (09:56→20:29)
[2024-03-27] MEDS: LANTUS 0.2 UNITS SC ×2 (10:10→21:52)
[2024-03-27] MEDS: MUCINEX 1200 MG PO (10:20)
[2024-03-27] MEDS: Hygroton 25 MG PO (10:20)
[2024-03-27] MEDS: VITAMIN C 500 MG PO ×2 (10:20→18:05)
[2024-03-27] MEDS: DETROL LA 4 MG PO (10:20)
[2024-03-27] MEDS: NOVOLOG FLEXPEN 10 UNITS SC ×3 (10:21→18:04)
[2024-03-27] MEDS: NOVOLOG FLEXPEN-HIGH RESISTANCE SC (10:22)
--- NOTE | 2024-03-27 10:26 | W.PN.ID1 ---
Date of Service
Date of Service: March 27, 2024
Today's Communication
Continue antibiotics; narrow to cefazolin.
Assessment / Plan
Large right renal abscess;
- status post drainage; 200cc purulent fluid recovered
- Cx's with Klebsiella pneumoniae
Leukocytosis
Hx flank pain
DM; uncontrolled (HbA1c = 10.3)
Hx nephrolithiasis
Urinary retention; chronic self-catheterization via stoma
Spina bifida
Obesity
LINH
Recommendations:
Leukocytosis improved today.
Cultures reveal growth of Klebsiella pneumoniae from abscess and from blood.
Narrow antibiotics to cefazolin 2 g IV every 8 hours
Monitor white count and temperature curve for clinical improvement. If white count persists, or patient develops further fevers, would repeat blood cultures.
Continue to monitor right flank drain output.
Continue with supportive care.
Monitor for clinical improvement.
May need additional imaging in several days to ensure abscess improvement/resolution.
����������������������������������������������������������
Chief Complaint
-: Other (Right renal abscess.)
Subjective / Review of Systems
Review of Systems: No Fever and No Chills
Vital Signs / Physical Exam
Vital Signs
Vital Signs
Temp Pulse Resp BP Pulse Ox
97.5 F 88 18 154/92 97
03/27/24 07:00 03/27/24 07:00 03/27/24 07:00 03/27/24 07:00 03/27/24 07:00
Physical Exam
Constitutional: Comfortable, Chronically Ill and Obese
Eyes: Pupils Equal, Pupils Round, No Conjunctival Hemorrhage and Sclera Anicteric
Cardiovascular: S1/S2; Negative S3/S4
Pulmonary: Clear and Non Labored; Negative Wheezes
Gastrointestinal: Soft, Non Distended and Normal Bowel Sounds
Genito-Urinary: Other (Right renal/abdominal drain in place with purulent fluid.)
Extremities: Negative Edema, Cyanosis or Erythema
Neurological: Awake and Alert
Psychological: Calm
Objective Data
Lab Data
Lab Results
03/27/24 06:54
03/26/24 05:35
PT 16.2 Sec (11.4-14.6) H 03/24/24 15:59
INR 1.27 03/24/24 15:59
APTT 26.8 Sec (23.4-35.0) 03/24/24 22:08
Estimated Creat Clear 114 ml/min 03/26/24 05:35
Lactic Acid 1.6 mmol/L (0.7-2.0) 03/24/24 15:59
Total Bilirubin 0.6 mg/dl (0.2-1.3) 03/24/24 12:25
AST 24 U/L (14-36) 03/24/24 12:25
ALT 23 U/L (0-35) 03/24/24 12:25
Alkaline Phosphatase 113 U/L (38-126) 03/24/24 12:25
Most recent labs reviewed.
Micro Results:
03/25/24 15:45 Body Fluid Culture - Final
Fluid Klebsiella pneumoniae
Gram Stain - Final
03/24/24 15:59 Blood Culture - Preliminary
Blood/Venous Klebsiella pneumoniae
Gram Stain - Preliminary
03/26/24 22:27 Blood Culture - Pending
Blood/Venous
03/24/24 15:59 Blood Culture - Preliminary
Blood/Venous No Growth in 48 hours- Final report to follow
03/26/24 10:49 MRSA Screen - Pending
Nose
03/26/24 04:08 Urine Culture - Pending
Urine
Blood Culture Preliminary 03/24/24
Klebsiella pneumoniae
Organism 1 Klebsiella pneumoniae
1. Klebsiella pneumoniae
M.I.C. RX
--------- ---
Amoxicillin/Potas. Clavulanate <=8/4 S
Ampicillin >16 R
Ampicillin/Sulbactam 8/4 S
Aztreonam <=4 S
Cefazolin <=2 S
Ertapenem <=0.5 S
Ciprofloxacin <=0.25 S
Gentamicin <=2 S
Meropenem <=1 S
Piperacillin/Tazobactam <=8 S
Tetracycline >8 R
Tobramycin <=2 S
Trimethoprim/Sulfamethoxazole >2/38 R
Imaging:
03/24/2024 CT chest/abdomen/pelvis with IV contrast: In the chest a small right pleural effusion is noted. There is a small subcentimeter solid pulmonary nodule. Severe right convex curvature of the thoracolumbar junction. Multilevel vertebral
body anomaly in the upper thoracic spine. In the abdomen and pelvis a large 14 cm centrally cystic mass exophytic from the posterior cortex of the right kidney and extending posteriorly through the posterior abdominal wall is noted. Multiple
nonobstructing right intrarenal calculi are seen. Moderate amount of fecal material throughout the colon. A neurogenic bladder is noted. Please see full dictation for additional detail. Film personally viewed.
--- NOTE | 2024-03-27 11:06 | W.PN.HOSP.TC ---
Today's Communication/Plan
-
Continue current care
Assessment / Plan
Assessment / Plan
Gen-AAOx3, NAD
HEENT-NC, AT, anicteric, clear oral mm
Neck-supple
CV-reg, no M, +S1/S2
Lungs-clear B/L
Abd-soft, NT, ND
Ext-no edema
Musculoskeletal-no cyanosis, clubbing
Skin-warm and dry
Neuro-grossly non-focal
Psych-calm, cooperative
DM2 with DKA -not on insulin at home. DKA resolved. Off insulin drip.
Uses Ozempic subcutaneously once weekly, glimepiride 2 mg twice daily at home. Does not check glucoses at home. Hemoglobin A1c 10.3%.
Currently on Lantus insulin 20 units twice daily, aspart 10 units AC, moderate resistance aspart sliding scale. Diabetes HEAT CURER following.
Sepsis due to right-sided pyelonephritis/abscess -Klebsiella noted on culture of fluid and blood. Repeat blood cultures pending. Now on IV cefazolin per ID. WBC count normalized. Afebrile.
Drain was placed in abscess cavity 03/[address] scan confirms 14 cm centrally cystic mass exophytic from the posterior cortex of the right kidney. Differential diagnosis is pyelonephritis with abscess, less likely renal cell carcinoma.
Urology recommends repeat CT on March 29.
Normocytic anemia - likely chronic. Hemoglobin 9.4, stable. Will need outpatient follow-up.
Hypokalemia -magnesium is normal. Getting repleted. Recheck labs.
Nephrolithiasis -multiple nonobstructing right intrarenal calculi noted on CT.
Neurogenic bladder -history of urinary reconstruction. Has Sellers catheter through abdominal stoma, self catheterizes at home.
Spina bifida -s/p RN RECOVERY shunt, history of multiple revisions, most recent was 2013. Shunt catheter appears fractured on x-ray, will need surgical follow-up.
LINH -on CPAP.
Hyperlipidemia -atorvastatin.
Essential hypertension -controlled.
Stage III sacral decubital wound
Obesity due to excess calories
Full code
[facility] declined her as a transfer and recommend keeping her at [place] for further treatment. This was not conveyed to me but conveyed to Dr. Mercado.
Anticipated Discharge: > 48 hours
Subjective/Interval History
-
Date of Service: March 27, 2024
Patient seen and examined. No complaints.
Objective Data
-
Labs:
Laboratory Results
03/27/24
06:54
WBC 8.5
Hgb 9.4 L
Hct 30.7 L
Plt Count 406 H
Vital Signs:
Vital Signs
Temp Pulse Resp BP Pulse Ox
97.5 F 88 18 154/92 97
03/27/24 07:00 03/27/24 07:00 03/27/24 07:00 03/27/24 07:00 03/27/24 07:00
I&O
03/26/24 03/27/24 03/28/24
06:59 06:59 06:59
Intake Total 2660 / 2660 1250 / 1250
Output Total 3410 / 3410 1525 / 1525
Balance -750 / -750 -275 / -275
Review of Systems
-
History Source: Patient
All other systems: Reviewed and negative
[2024-03-27 13:06] LABS: Glucose - Point of Care 171 mg/dl (70-99)
[2024-03-27] MEDS: NOVOLOG FLEXPEN-MODERATE RESISTANCE 1 UNITS SC ×2 (13:08→18:03)
[2024-03-27] MEDS: ANCEF 10 IV ×2 (13:09→20:29)
[2024-03-27 15:00] VITALS: BP 147/83
--- NOTE | 2024-03-27 15:47 | CM ---
CM reviewed chart, per updated notes, patient no longer transferring to [facility]. Patient resides with parents, does not have any caregiver services, parents provide care. CM will continue to follow for all discharge planning needs.
Plan; home with family, watch for VN needs upon discharge.
[2024-03-27 16:28] LABS: Glucose - Point of Care 193 mg/dl (70-99)
[2024-03-27] MEDS: LIPITOR 40 MG PO (18:05)
[2024-03-27] MEDS: LOVENOX 40 MG SC (18:05)
[2024-03-27 20:36] VITALS: BP 152/98
[2024-03-27 21:34] LABS: Glucose - Point of Care 191 mg/dl (70-99)
[2024-03-27] MEDS: TRICOR 145 MG PO (21:54)
[2024-03-27 23:00] VITALS: BP 132/79
[2024-03-28] VITALS (7 sets, daily range): BP systolic 120–150; BP diastolic 73–97
[2024-03-28] MEDS: ANCEF 10 IV ×3 (03:14→19:46)
[2024-03-28 07:55] LABS: Hemoglobin 9.9 g/dL (12.0-16.0); Mean Corpuscular Hgb 25.5 pg (27.0-31.0); Mean Corpuscular Volume 85.1 fL (81.0-99.0); Mean Platelet Volume 8.9 fL (7.4-10.4); Platelet Count 403 10^3/uL (130-400); Red Blood Cell Count 3.88 10^6/uL (4.20-5.40); Red Cell Dist. Width 15.5 % (11.5-14.5); White Blood Cell Count 10.2 10^3/uL (4.8-10.8)
[2024-03-28 08:37] LABS: Glucose - Point of Care 153 mg/dl (70-99)
[2024-03-28 09:47] LABS: Blood Urea Nitrogen 9 mg/dl (7-17); Calcium 8.7 mg/dl (8.4-10.2); Carbon Dioxide 27 mmol/L (22-30); Chloride 89 mmol/L (98-107); Estimated Creatinine Clearance 114 ml/min; Glucose 153 mg/dl (70-99); Potassium 3.8 mmol/L (3.5-5.1); Sodium 129 mmol/L (135-145); eGFR > 60.00
[2024-03-28] MEDS: DDAVP NASAL SPRAY 1 SPRAY NASAL (10:11)
[2024-03-28] MEDS: NOVOLOG FLEXPEN 10 UNITS SC ×3 (10:14→17:56)
[2024-03-28] MEDS: NOVOLOG FLEXPEN-MODERATE RESISTANCE 1 UNITS SC (10:14)
[2024-03-28] MEDS: VITAMIN C 500 MG PO ×2 (10:16→17:57)
[2024-03-28] MEDS: Hygroton 25 MG PO (10:16)
[2024-03-28] MEDS: LANTUS 0.2 UNITS SC ×2 (10:16→22:40)
[2024-03-28] MEDS: MUCINEX 1200 MG PO (10:16)
[2024-03-28] MEDS: DETROL LA 4 MG PO (10:16)
--- NOTE | 2024-03-28 10:58 | W.PN.HOSP.TC ---
Addendum entered and electronically signed by Frederic Torres DO 03/28/24 14:08:
Repeat sodium 128. Hold further DDAVP, stop chlorthalidone. She did get a dose of DDAVP this morning.
Recheck BMP tomorrow.
Apparently on DDAVP for diabetes insipidus.
Original Note:
Today's Communication/Plan
-
Recheck BMP
Continue antibiotics
CT scan tomorrow
Assessment / Plan
Assessment / Plan
Gen-AAOx3, NAD
HEENT-NC, AT, anicteric, clear oral mm
Neck-supple
CV-reg, no M, +S1/S2
Lungs-clear B/L
Abd-soft, NT, ND
Ext-no edema
Musculoskeletal-no cyanosis, clubbing
Skin-warm and dry
Neuro-grossly non-focal
Psych-calm, cooperative
DM2 with DKA -not on insulin at home. DKA resolved.
Uses Ozempic subcutaneously once weekly, glimepiride 2 mg twice daily at home. Does not check glucoses at home. Hemoglobin A1c 10.3%.
Currently on Lantus insulin 20 units twice daily, aspart 10 units AC, moderate resistance aspart sliding scale. Diabetes PRODUCT DEVELOPMENT ENGINEER following.
Sepsis due to right-sided pyelonephritis/abscess -Klebsiella noted on culture of fluid and blood. Repeat blood cultures negative so far. Now on IV cefazolin per ID. WBC count normalized. Afebrile.
Drain was placed in abscess cavity 03/25 by IR. Drain output decreasing, likely needs drain study on Saturday.
CT scan confirms 14 cm centrally cystic mass exophytic from the posterior cortex of the right kidney. Differential diagnosis is pyelonephritis with abscess, less likely renal cell carcinoma.
Urology recommends repeat CT on Saturday, March 29.
Hyponatremia -suspect laboratory error, will recheck labs today.
Normocytic anemia - likely chronic. Hemoglobin 9.9, stable. Will need outpatient follow-up.
Hypokalemia -improved.
Nephrolithiasis -multiple nonobstructing right intrarenal calculi noted on CT.
Neurogenic bladder -history of urinary reconstruction. Has Sellers catheter through abdominal stoma, self catheterizes at home.
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 Shunt catheter appears fractured on x-ray, will need surgical follow-up.
LINH -on CPAP.
Hyperlipidemia -atorvastatin.
Essential hypertension -controlled.
Stage III sacral decubital wound
Obesity due to excess calories
Full code
Anticipated Discharge: > 48 hours
Subjective/Interval History
-
Date of Service: March 28, 2024
Patient seen and examined. No complaints.
Objective Data
-
Labs:
Laboratory Results
03/28/24 03/28/24 03/28/24
07:20 08:56 10:49
WBC 10.2
Hgb 9.9 L
Hct 33.0 L
Plt Count 403 H
Sodium Cancelled 129 L D Pending
Potassium Cancelled 3.8 Pending
Chloride Cancelled 89 L Pending
Carbon Dioxide Cancelled 27 Pending
BUN Cancelled 9 Pending
Creatinine Cancelled 0.3 L Pending
Glucose Cancelled 153 H Pending
Calcium Cancelled 8.7 Pending
Vital Signs:
Vital Signs
Temp Pulse Resp BP Pulse Ox
97.7 F 89 20 127/86 100
03/28/24 07:00 03/28/24 07:00 03/28/24 07:00 03/28/24 07:00 03/28/24 07:00
I&O
03/27/24 03/28/24 03/29/24
06:59 06:59 06:59
Intake Total 1250 / 1250 900 / 900
Output Total 1525 / 1525 2480 / 2480
Balance -275 / -275 -1580 / -1580
Review of Systems
-
History Source: Patient
All other systems: Reviewed and negative
--- NOTE | 2024-03-28 11:06 | W.PN.URO.CBU ---
Today's Communication / Plan
-
continue iv antibx
eventual plan- if remains stable- would be for discharge with drain and antibx course per ID
Assessment / Plan
-
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
s/p IR drainage
pt improved
Diagnosis
-
Date of Service: March 28, 2024
-
Patient Diagnosis:
markus-renal abscess
IR drainage 03/25
Objective
-
Vital Signs
Temp Pulse Resp BP Pulse Ox
97.7 F 89 20 127/86 100
03/28/24 07:00 03/28/24 07:00 03/28/24 07:00 03/28/24 07:00 03/28/24 07:00
Intake and Output
03/27/24 03/28/24 03/29/24
06:59 06:59 06:59
Intake Total 1250 / 1250 900 / 900
Output Total 1525 / 1525 2480 / 2480
Balance -275 / -275 -1580 / -1580
Intake:
Oral fluids 1200 / 1200 900 / 900
IV piggybacks 50 / 50
Output:
Drain Output (Total) 125 / 125 30 / 30
Right Santos-Caruso 125 / 125 30 / 30
Urine, Sellers 1400 / 1400 1500 / 1500
Urine, Voided 950 / 950
Laboratory Results
03/28/24 07:20
Klebsiella
Physical Exam
-
General - well developed, well nourished, no acute distress
Chest - clear bilaterally
Abdomen - soft, non-tender, positive bowel sounds, no CVAT, no incisional pain or distention
Genitalia - normal
Rectal - normal
Skin - warm & dry with no rash
Neuro - AOx3, no motor deficits
Extremities - no clubbing, no cyanosis, no edema
Incision - clean, dry
Dressing - clean, dry, intact
--- NOTE | 2024-03-28 11:22 | W.PN.ID1 ---
Date of Service
Date of Service: March 28, 2024
Today's Communication
Continue cefazolin.
Assessment / Plan
Large right renal abscess;
- status post drainage; 200cc purulent fluid recovered
- Cx's with Klebsiella pneumoniae
Leukocytosis
Hx flank pain
DM; uncontrolled (HbA1c = 10.3)
Hx nephrolithiasis
Urinary retention; chronic self-catheterization via stoma
Spina bifida
Obesity
LINH
Recommendations:
Leukocytosis resolved.
Cultures reveal growth of Klebsiella pneumoniae from abscess and from blood.
Continue cefazolin 2 g IV every 8 hours
Continue to monitor right flank drain output.
Repeat imaging to ensure abscess improvement/resolution.
Monitor for clinical improvement.
����������������������������������������������������������
Chief Complaint
-: Other (Right renal abscess.)
Subjective / Review of Systems
No complaints.
Vital Signs / Physical Exam
Vital Signs
Vital Signs
Temp Pulse Resp BP Pulse Ox
97.7 F 89 20 127/86 100
03/28/24 07:00 03/28/24 07:00 03/28/24 07:00 03/28/24 07:00 03/28/24 07:00
Physical Exam
Constitutional: No Acute Distress
Gastrointestinal: Soft and Non Tender
Genito-Urinary: Sellers, Clear Urine and Other (right CLARISSA drain + pus)
Neurological: AO x 3
Objective Data
Lab Data
Lab Results
03/28/24 07:20
PT 16.2 Sec (11.4-14.6) H 03/24/24 15:59
INR 1.27 03/24/24 15:59
APTT 26.8 Sec (23.4-35.0) 03/24/24 22:08
Estimated Creat Clear 114 ml/min 03/28/24 08:56
Lactic Acid 1.6 mmol/L (0.7-2.0) 03/24/24 15:59
Total Bilirubin 0.6 mg/dl (0.2-1.3) 03/24/24 12:25
AST 24 U/L (14-36) 03/24/24 12:25
ALT 23 U/L (0-35) 03/24/24 12:25
Alkaline Phosphatase 113 U/L (38-126) 03/24/24 12:25
Most recent labs reviewed.
Micro Results:
03/26/24 04:08 Urine Culture - Final
Urine NO GROWTH
03/26/24 22:27 Blood Culture - Preliminary
Blood/Venous No Growth in 24 hours- Final report to follow
03/24/24 15:59 Blood Culture - Preliminary
Blood/Venous No Growth in 72 hours- Final report to follow
03/26/24 10:49 MRSA Screen - Final
Nose No Methicillin Resistant Staphylococcus aureus isolated.
03/25/24 15:45 Body Fluid Culture - Final
Fluid Klebsiella pneumoniae
Gram Stain - Final
03/24/24 15:59 Blood Culture - Preliminary
Blood/Venous Klebsiella pneumoniae
Gram Stain - Preliminary
Blood Culture Preliminary 03/24/24
Klebsiella pneumoniae
Organism 1 Klebsiella pneumoniae
1. Klebsiella pneumoniae
M.I.C. RX
--------- ---
Amoxicillin/Potas. Clavulanate <=8/4 S
Ampicillin >16 R
Ampicillin/Sulbactam 8/4 S
Aztreonam <=4 S
Cefazolin <=2 S
Ertapenem <=0.5 S
Ciprofloxacin <=0.25 S
Gentamicin <=2 S
Meropenem <=1 S
Piperacillin/Tazobactam <=8 S
Tetracycline >8 R
Tobramycin <=2 S
Trimethoprim/Sulfamethoxazole >2/38 R
Imaging:
03/24/2024 CT chest/abdomen/pelvis with IV contrast: In the chest a small right pleural effusion is noted. There is a small subcentimeter solid pulmonary nodule. Severe right convex curvature of the thoracolumbar junction. Multilevel vertebral
body anomaly in the upper thoracic spine. In the abdomen and pelvis a large 14 cm centrally cystic mass exophytic from the posterior cortex of the right kidney and extending posteriorly through the posterior abdominal wall is noted. Multiple
nonobstructing right intrarenal calculi are seen. Moderate amount of fecal material throughout the colon. A neurogenic bladder is noted. Please see full dictation for additional detail. Film personally viewed.
[2024-03-28 12:02] LABS: Glucose - Point of Care 211 mg/dl (70-99)
[2024-03-28 12:51] LABS: Blood Urea Nitrogen 9 mg/dl (7-17); Calcium 8.8 mg/dl (8.4-10.2); Carbon Dioxide 29 mmol/L (22-30); Chloride 88 mmol/L (98-107); Estimated Creatinine Clearance 114 ml/min; Glucose 197 mg/dl (70-99); Potassium 3.7 mmol/L (3.5-5.1); Sodium 128 mmol/L (135-145); eGFR > 60.00
[2024-03-28] MEDS: NOVOLOG FLEXPEN-MODERATE RESISTANCE 3 UNITS SC (14:24)
[2024-03-28 17:33] LABS: Glucose - Point of Care 251 mg/dl (70-99)
[2024-03-28] MEDS: NOVOLOG FLEXPEN-MODERATE RESISTANCE 5 UNITS SC (17:55)
[2024-03-28] MEDS: LOVENOX 40 MG SC (17:56)
[2024-03-28] MEDS: LIPITOR 40 MG PO (17:57)
[2024-03-28] MEDS: TRICOR 145 MG PO (22:31)
[2024-03-28 22:44] LABS: Glucose - Point of Care 272 mg/dl (70-99)
[2024-03-29] MEDS: ANCEF 10 IV ×3 (03:06→20:51)
[2024-03-29 03:22] VITALS: BP 152/96
[2024-03-29 06:30] LABS: Blood Urea Nitrogen 8 mg/dl (7-17); Calcium 9.2 mg/dl (8.4-10.2); Carbon Dioxide 28 mmol/L (22-30); Chloride 90 mmol/L (98-107); Estimated Creatinine Clearance 114 ml/min; Glucose 192 mg/dl (70-99); Potassium 3.9 mmol/L (3.5-5.1); Sodium 130 mmol/L (135-145); eGFR > 60.00
[2024-03-29 08:00] VITALS: BP 149/94
[2024-03-29 08:59] LABS: Glucose - Point of Care 205 mg/dl (70-99)
[2024-03-29] MEDS: NOVOLOG FLEXPEN-MODERATE RESISTANCE 3 UNITS SC ×2 (10:21→18:01)
[2024-03-29] MEDS: LANTUS 0.2 UNITS SC (10:21)
[2024-03-29] MEDS: NOVOLOG FLEXPEN 10 UNITS SC (10:21)
[2024-03-29] MEDS: MUCINEX 1200 MG PO (10:22)
[2024-03-29] MEDS: DETROL LA 4 MG PO (10:22)
[2024-03-29] MEDS: VITAMIN C 500 MG PO ×2 (10:22→18:00)
--- NOTE | 2024-03-29 11:20 | W.PN.HOSP.TC ---
Today's Communication/Plan
-
Monitor sodium levels
Continue antibiotics
Mild fluid restriction
Assessment / Plan
Assessment / Plan
Gen-AAOx3, NAD
HEENT-NC, AT, anicteric, clear oral mm
Neck-supple
CV-reg, no M, +S1/S2
Lungs-clear B/L
Abd-soft, NT, ND
Ext-no edema
Musculoskeletal-no cyanosis, clubbing
Skin-warm and dry
Neuro-grossly non-focal
Psych-calm, cooperative
DM2 with DKA -not on insulin at home. DKA resolved.
Uses Ozempic subcutaneously once weekly, glimepiride 2 mg twice daily at home. Does not check glucoses at home. Hemoglobin A1c 10.3%.
Currently on Lantus insulin 20 units twice daily, aspart 10 units AC, moderate resistance aspart sliding scale. Diabetes SALES TRAINING MANAGER following.
Glucoses now running high. Will increase Lantus to 22 units twice daily, aspart 13 units AC.
Sepsis due to right-sided pyelonephritis/abscess -Klebsiella noted on culture of fluid and blood. Repeat blood cultures negative so far. Now on IV cefazolin per ID. WBC count normalized. Afebrile.
Drain was placed in abscess cavity 03/25 by IR. Drain output decreasing, likely needs drain study on Saturday.
CT scan confirms 14 cm centrally cystic mass exophytic from the posterior cortex of the right kidney. Differential diagnosis is pyelonephritis with abscess, less likely renal cell carcinoma.
Repeat CT scan today demonstrates improvement in fluid collection size, 7.6 cm.
Urology recommends discharge with drain in place, antibiotics. Outpatient follow-up.
Diabetes insipidus -on chronic desmopressin. Sodium dropped yesterday to 128. Desmopressin on hold. Chlorthalidone discontinued. Sodium 130 today. Initiate mild fluid restriction. She is drinking plenty of fluids currently, averaging 2 L a
day. Discussed with patient and nursing. Monitor sodium closely.
Normocytic anemia - likely chronic. Hemoglobin 9.9, stable. Will need outpatient follow-up.
Hypokalemia -improved.
Nephrolithiasis -multiple nonobstructing right intrarenal calculi noted on CT.
Neurogenic bladder -history of urinary reconstruction. Has Sellers catheter through abdominal stoma, self catheterizes at home.
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 Shunt catheter appears fractured on x-ray, will need surgical follow-up.
LINH -on CPAP.
Hyperlipidemia -atorvastatin.
Essential hypertension -controlled.
Stage III sacral decubital wound
Obesity due to excess calories
Full code
Dispo -potential discharge Saturday if sodium stable, will need VN for drain management. ID to decide on antibiotic course on discharge.
Updated mother on the phone.
Anticipated Discharge: Within 24 hours
Subjective/Interval History
-
Date of Service: March 29, 2024
Patient seen and examined. No complaints.
Objective Data
-
Labs:
Laboratory Results
03/29/24
05:32
Sodium 130 L
Potassium 3.9
Chloride 90 L
Carbon Dioxide 28
BUN 8
Creatinine 0.3 L
Glucose 192 H
Calcium 9.2
Vital Signs:
Vital Signs
Temp Pulse Resp BP Pulse Ox
97.9 F 100 12 149/94 99
03/29/24 08:00 03/29/24 08:00 03/29/24 08:00 03/29/24 08:00 03/29/24 08:00
I&O
03/28/24 03/29/24 03/30/24
06:59 06:59 06:59
Intake Total 900 / 900 2039 / 2039
Output Total 2480 / 2480 3111 / 3111
Balance -1580 / -1580 -1071 / -1071
Review of Systems
-
History Source: Patient
All other systems: Reviewed and negative
[2024-03-29 11:24] VITALS: BP 108/72
--- NOTE | 2024-03-29 12:48 | W.PN.ID1 ---
Date of Service
Date of Service: March 29, 2024
Today's Communication
Continue cefazolin.
Assessment / Plan
Large right renal abscess;
- status post drainage; 200cc purulent fluid recovered
- Cx's with Klebsiella pneumoniae
Leukocytosis
Hx flank pain
DM; uncontrolled (HbA1c = 10.3)
Hx nephrolithiasis
Urinary retention; chronic self-catheterization via stoma
Spina bifida
Obesity
LINH
Recommendations:
Leukocytosis resolved.
Cultures reveal growth of Klebsiella pneumoniae from abscess and from blood.
Repeat CT a/p shows decrease in size of abscess from 11.2 cm x 9.4 cm to 7.6 cm x 3.5 cm
Continue cefazolin 2 g IV every 8 hours for now.
Continue to monitor right flank drain output.
Anticipate stable for discharge tomorrow per hospitalist.
����������������������������������������������������������
Chief Complaint
-: Other (Right renal abscess.)
Subjective / Review of Systems
Feels well.
Vital Signs / Physical Exam
Vital Signs
Vital Signs
Temp Pulse Resp BP Pulse Ox
97.9 F 107 16 108/72 100
03/29/24 11:24 03/29/24 11:24 03/29/24 11:24 03/29/24 11:24 03/29/24 11:24
Physical Exam
Constitutional: No Acute Distress and Comfortable
Cardiovascular: Regular Rate and S1/S2
Pulmonary: Clear
Gastrointestinal: Soft, Non Tender and Non Distended
Genito-Urinary: Other (Right flank CLARISSA drain: + pus)
Objective Data
Lab Data
Lab Results
03/28/24 07:20
03/29/24 05:32
PT 16.2 Sec (11.4-14.6) H 03/24/24 15:59
INR 1.27 03/24/24 15:59
APTT 26.8 Sec (23.4-35.0) 03/24/24 22:08
Estimated Creat Clear 114 ml/min 03/29/24 05:32
Lactic Acid 1.6 mmol/L (0.7-2.0) 03/24/24 15:59
Total Bilirubin 0.6 mg/dl (0.2-1.3) 03/24/24 12:25
AST 24 U/L (14-36) 03/24/24 12:25
ALT 23 U/L (0-35) 03/24/24 12:25
Alkaline Phosphatase 113 U/L (38-126) 03/24/24 12:25
Most recent labs reviewed.
Micro Results:
03/26/24 22:27 Blood Culture - Preliminary
Blood/Venous No Growth in 48 hours- Final report to follow
03/24/24 15:59 Blood Culture - Preliminary
Blood/Venous No Growth in 4 days- Final report to follow
03/26/24 04:08 Urine Culture - Final
Urine NO GROWTH
03/26/24 10:49 MRSA Screen - Final
Nose No Methicillin Resistant Staphylococcus aureus isolated.
03/25/24 15:45 Body Fluid Culture - Final
Fluid Klebsiella pneumoniae
Gram Stain - Final
03/24/24 15:59 Blood Culture - Preliminary
Blood/Venous Klebsiella pneumoniae
Gram Stain - Preliminary
Blood Culture Preliminary 03/24/24
Klebsiella pneumoniae
Organism 1 Klebsiella pneumoniae
1. Klebsiella pneumoniae
M.I.C. RX
--------- ---
Amoxicillin/Potas. Clavulanate <=8/4 S
Ampicillin >16 R
Ampicillin/Sulbactam 8/4 S
Aztreonam <=4 S
Cefazolin <=2 S
Ertapenem <=0.5 S
Ciprofloxacin <=0.25 S
Gentamicin <=2 S
Meropenem <=1 S
Piperacillin/Tazobactam <=8 S
Tetracycline >8 R
Tobramycin <=2 S
Trimethoprim/Sulfamethoxazole >2/38 R
Imaging:
03/24/2024 CT chest/abdomen/pelvis with IV contrast: In the chest a small right pleural effusion is noted. There is a small subcentimeter solid pulmonary nodule. Severe right convex curvature of the thoracolumbar junction. Multilevel vertebral
body anomaly in the upper thoracic spine. In the abdomen and pelvis a large 14 cm centrally cystic mass exophytic from the posterior cortex of the right kidney and extending posteriorly through the posterior abdominal wall is noted. Multiple
nonobstructing right intrarenal calculi are seen. Moderate amount of fecal material throughout the colon. A neurogenic bladder is noted. Please see full dictation for additional detail. Film personally viewed.
03/29/2024 CT a/p: There is decreased size of the loculated right perinephric abscess which now measures up to 7.6 cm (from 11.2 cm). There is persistent extension into the right kidney consistent with pyelonephritis. The percutaneous pigtail
catheter tip terminates in the lateral aspect of the collection.
Care Review
Plan reviewed with: Physician (Dr. Barrera)
--- NOTE | 2024-03-29 12:58 | CM ---
Chart reviewed and plan is to return to home with parents when stable, patient is agreeable to visiting nurses, options reviewed and patient has selected [facility], referral sent to [facility].
Plan; Home with parents and [facility], referral sent to [facility].
[2024-03-29 13:00] LABS: Glucose - Point of Care 342 mg/dl (70-99)
[2024-03-29] MEDS: NOVOLOG FLEXPEN-MODERATE RESISTANCE 7 UNITS SC (13:44)
[2024-03-29] MEDS: NOVOLOG FLEXPEN 13 UNITS SC ×2 (13:44→18:00)
[2024-03-29 15:39] VITALS: BP 121/77
[2024-03-29 17:19] LABS: Glucose - Point of Care 208 mg/dl (70-99)
[2024-03-29] MEDS: LOVENOX 40 MG SC (18:00)
[2024-03-29] MEDS: LIPITOR 40 MG PO (18:00)
[2024-03-29 19:04] LABS: Blood Urea Nitrogen 11 mg/dl (7-17); Carbon Dioxide 31 mmol/L (22-30); Chloride 98 mmol/L (98-107); Estimated Creatinine Clearance 114 ml/min; Glucose 229 mg/dl (70-99); Sodium 139 mmol/L (135-145); eGFR > 60.00
[2024-03-29] MEDS: DDAVP NASAL SPRAY 1 SPRAY NASAL (19:16)
[2024-03-29 19:26] VITALS: BP 118/77
[2024-03-29 21:31] LABS: Glucose - Point of Care 251 mg/dl (70-99)
[2024-03-29] MEDS: LANTUS 0.22 UNITS SC (22:39)
[2024-03-29] MEDS: TRICOR 145 MG PO (22:40)
[2024-03-29 23:20] VITALS: BP 114/72
[2024-03-30] MEDS: ANCEF 10 IV ×3 (03:09→19:54)
[2024-03-30 03:30] VITALS: BP 144/92
[2024-03-30 08:03] VITALS: BP 134/81
--- NOTE | 2024-03-30 08:29 | W.PN.UPDATE ---
Update Note
Progress Note Update
have reviewed weekend events at [place]
pt will be seen later today
have discussed with IT
plan for drain repositioning/upsizing tomorrow
reviewed with pt's mother
--- NOTE | 2024-03-30 08:44 | PN.DE.MGMTRT ---
Insulin Management
- -
03/30/2024: Diabetes Management F/U:
38 year old female admitted 03/24 with c/o R flank pain and fever, found to be in DKA with GAP 16.
Complex PMH:Spina bifida w shunt and multiple revisions, nephrolithiasis, LINH w/CPAP, self cath through stoma, stage 3 sacral ulcers, diabetes. She received all of her care @ [facility], recently moved here, ~ 2 weeks ago. States she has had diabetes 5
years. Has not set up new primary doctor since move. She states she has a glucose monitor but doesn't use it. Prior to admission was taking 1 mg Ozempic weekly on Saturday, glimepiride 2 mg BID. A1C on admission 10.3%, Cr 0.3, eGFR > 60.
Patient is awake, alert and oriented, offers no complaints, able to discuss diabetes mgt. No family at bedside
Patient was transitioned off DKA protocol on 03/25 to SQ insulin[address]
Dr. Torres adjusted her insulin doses yesterday due to persistent Hyperglycemia
Premeal glucose levels remain elevated, 205 to 342, requiring 3-7 units of additional corrective insulin with meals
Will increase AC NovoLog to 16 units and Lantus to 25 units BID. Cont moderate corrective.
Discussed with pt and instructed her not to resume the glimepiride up return home.
Diabetes History
- -
Type of Diabetes: 2 requiring insulin
Pre-Admission Diabetes Regimen
03/29/24
18:34
Creatinine 0.5 L
Lab Results
Hemoglobin A1c 10.3 % (4.0-5.6) H 03/24/24 22:08
Insulin Pump Settings
IP Diabetes Regimen
03/29/24 03/29/24 03/29/24
08:58 12:58 17:18
Glucose
POC Glucose 205 H 342 H 208 H
03/29/24 03/29/24
18:34 21:31
Glucose 229 H
POC Glucose 251 H
Meal type: Lunch
Meal type: Breakfast
Amount consumed: 85%
Amount consumed: 100%
Patient Education
[2024-03-30] MEDS: NOVOLOG FLEXPEN SC ×3 (09:26→11:22)
[2024-03-30] MEDS: LANTUS SC (09:26)
[2024-03-30 09:31] LABS: Glucose - Point of Care 179 mg/dl (70-99)
[2024-03-30 09:34] LABS: Blood Urea Nitrogen 14 mg/dl (7-17); Calcium 9.4 mg/dl (8.4-10.2); Carbon Dioxide 28 mmol/L (22-30); Chloride 96 mmol/L (98-107); Estimated Creatinine Clearance 114 ml/min; Glucose 170 mg/dl (70-99); Potassium 4.1 mmol/L (3.5-5.1); Sodium 135 mmol/L (135-145); eGFR > 60.00
[2024-03-30 10:35] VITALS: BP 109/75
[2024-03-30] MEDS: NOVOLOG FLEXPEN-MODERATE RESISTANCE SC ×2 (11:10→11:22)
[2024-03-30 11:11] LABS: Glucose - Point of Care 201 mg/dl (70-99)
[2024-03-30] MEDS: DETROL LA 4 MG PO (11:13)
[2024-03-30] MEDS: VITAMIN C 500 MG PO ×2 (11:13→18:06)
[2024-03-30] MEDS: MUCINEX 1200 MG PO (11:13)
[2024-03-30] MEDS: LANTUS 0.25 UNITS SC ×2 (11:13→22:05)
[2024-03-30] MEDS: NOVOLOG FLEXPEN 16 UNITS SC ×3 (11:14→18:05)
[2024-03-30] MEDS: DDAVP NASAL SPRAY 1 SPRAY NASAL ×2 (11:14→19:53)
[2024-03-30] MEDS: NOVOLOG FLEXPEN-MODERATE RESISTANCE 3 UNITS SC ×2 (11:15→14:31)
--- NOTE | 2024-03-30 12:50 | W.PN.URO.CBU ---
Today's Communication / Plan
-
IR tomorrow for drain re-positioning
Assessment / Plan
-
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
reviewed options and potential outcomes
given ct- will try and have IR reposition drain tomorrow
then plan would be for discharge with drain for several weeks and antibx per ID- with re-imaging to see if collection resolves
Diagnosis
-
Date of Service: March 30, 2024
-
Patient Diagnosis:
markus-renal abscess
IR drainage 03/25
Subjective
-
pt with family at bedside
feels good
no fevers and no pain
Objective
-
Vital Signs
Temp Pulse Resp BP Pulse Ox
97.7 F 97 17 109/75 99
03/30/24 10:35 03/30/24 10:35 03/30/24 10:35 03/30/24 10:35 03/30/24 10:35
Intake and Output
03/29/24 03/30/24 03/31/24
06:59 06:59 06:59
Intake Total 2039
Output Total 3111 / 3111 5810 / 5810
Balance -1071 / -1071 -3820 / -3820
Intake:
Oral fluids 2039
Amount instilled into Drain (
Total)
Right Radha
Output:
Drain Output (Total) 155 / 155 110 / 110
Right Radha 155 / 155 110 / 110
Urine, Sellers 2956 / 2956 4100 / 4100
Urine, Voided 1600 / 1600
Other:
How many times incontinent 1
SATURATED amount urine
Laboratory Results
03/28/24 07:20
03/30/24 08:25
Review of Systems
-
Constitutional: Fatigue
Respiratory: No Symptoms
Cardiac: No Symptoms
Abdomen/GI: No Symptoms
Physical Exam
-
General - no acute distress
--- NOTE | 2024-03-30 14:15 | CM ---
CM reviewed chart, patient for IR tomorrow. Patient seen bedside with family, reports no needs to CM at this time. CM will continue to follow for all discharge planning needs.
Plan; home with family, [facility], watch for home antibiotic needs.
[2024-03-30 14:22] LABS: Glucose - Point of Care 244 mg/dl (70-99)
--- NOTE | 2024-03-30 14:46 | W.PN.ID1 ---
Date of Service
Date of Service: March 30, 2024
Today's Communication
Continue antibiotics. Await drain repositioning.
Assessment / Plan
Large right renal abscess;
- status post drainage; 200cc purulent fluid recovered
- Cx's with Klebsiella pneumoniae
- repeat imaging with persistent, but decreased collection.
Leukocytosis
Hx flank pain
DM; uncontrolled (HbA1c = 10.3)
Hx nephrolithiasis
Urinary retention; chronic self-catheterization via stoma
Spina bifida
Obesity
LINH
Recommendations:
Cultures reveal growth of Klebsiella pneumoniae from abscess and from blood.
Repeat CT a/p shows decrease in size of abscess from 11.2 cm x 9.4 cm to 7.6 cm x 3.5 cm
Continue cefazolin 2 g IV every 8 hours for now.
Continue to monitor right flank drain output.
For drain repositioning.
����������������������������������������������������������
Chief Complaint
-: Other (Right renal abscess.)
Subjective / Review of Systems
Review of Systems: No Fever and No Chills
Vital Signs / Physical Exam
Vital Signs
Vital Signs
Temp Pulse Resp BP Pulse Ox
97.7 F 97 17 109/75 99
03/30/24 10:35 03/30/24 10:35 03/30/24 10:35 03/30/24 10:35 03/30/24 10:35
Physical Exam
Constitutional: No Acute Distress, Comfortable, Chronically Ill and Non-toxic
Eyes: Sclera Anicteric
Cardiovascular: Regular Rate and S1/S2
Pulmonary: Clear
Gastrointestinal: Soft, Non Tender and Non Distended
Genito-Urinary: Other (Right flank CLARISSA drain: Ongoing purulent drainage.)
Neurological: Awake and Alert
Psychological: Calm
Objective Data
Lab Data
Lab Results
03/28/24 07:20
03/30/24 08:25
PT 16.2 Sec (11.4-14.6) H 03/24/24 15:59
INR 1.27 03/24/24 15:59
APTT 26.8 Sec (23.4-35.0) 03/24/24 22:08
Estimated Creat Clear 114 ml/min 03/30/24 08:25
Lactic Acid 1.6 mmol/L (0.7-2.0) 03/24/24 15:59
Total Bilirubin 0.6 mg/dl (0.2-1.3) 03/24/24 12:25
AST 24 U/L (14-36) 03/24/24 12:25
ALT 23 U/L (0-35) 03/24/24 12:25
Alkaline Phosphatase 113 U/L (38-126) 03/24/24 12:25
Most recent labs reviewed.
Micro Results:
03/26/24 22:27 Blood Culture - Preliminary
Blood/Venous No Growth in 72 hours- Final report to follow
03/24/24 15:59 Blood Culture - Final
Blood/Venous No Growth - Final Report
03/26/24 04:08 Urine Culture - Final
Urine NO GROWTH
03/26/24 10:49 MRSA Screen - Final
Nose No Methicillin Resistant Staphylococcus aureus isolated.
03/25/24 15:45 Body Fluid Culture - Final
Fluid Klebsiella pneumoniae
Gram Stain - Final
03/24/24 15:59 Blood Culture - Preliminary
Blood/Venous Klebsiella pneumoniae
Gram Stain - Preliminary
Blood Culture Preliminary 03/24/24
Klebsiella pneumoniae
Organism 1 Klebsiella pneumoniae
1. Klebsiella pneumoniae
M.I.C. RX
--------- ---
Amoxicillin/Potas. Clavulanate <=8/4 S
Ampicillin >16 R
Ampicillin/Sulbactam 8/4 S
Aztreonam <=4 S
Cefazolin <=2 S
Ertapenem <=0.5 S
Ciprofloxacin <=0.25 S
Gentamicin <=2 S
Meropenem <=1 S
Piperacillin/Tazobactam <=8 S
Tetracycline >8 R
Tobramycin <=2 S
Trimethoprim/Sulfamethoxazole >2/38 R
Imaging:
03/24/2024 CT chest/abdomen/pelvis with IV contrast: In the chest a small right pleural effusion is noted. There is a small subcentimeter solid pulmonary nodule. Severe right convex curvature of the thoracolumbar junction. Multilevel vertebral
body anomaly in the upper thoracic spine. In the abdomen and pelvis a large 14 cm centrally cystic mass exophytic from the posterior cortex of the right kidney and extending posteriorly through the posterior abdominal wall is noted. Multiple
nonobstructing right intrarenal calculi are seen. Moderate amount of fecal material throughout the colon. A neurogenic bladder is noted. Please see full dictation for additional detail. Film personally viewed.
03/29/2024 CT a/p: There is decreased size of the loculated right perinephric abscess which now measures up to 7.6 cm (from 11.2 cm). There is persistent extension into the right kidney consistent with pyelonephritis. The percutaneous pigtail
catheter tip terminates in the lateral aspect of the collection.
[2024-03-30 15:15] VITALS: BP 127/76
--- NOTE | 2024-03-30 15:24 | W.PN.HOSP.TC ---
Today's Communication/Plan
-
Assessment / Plan
Assessment / Plan
Physical Exam
NAD, resting comfortably in bed
Scleral anicteric
Moist mucous membranes
No JVD
CTA bilateral
Normal S1-S2 no murmurs
Soft nontender nondistended bowel sounds active
No peripheral pitting edema
Moves extremities spontaneously
AAOx3
Assessment and Plan
Sepsis due to right-sided pyelonephritis/abscess
-S/p drain placement
-Urology following
-Urology would like drain reposition
-This is planned for tomorrow
-Continue antibiotics per ID recommending
Diabetes type 2 presented with DKA now DKA resolved.
-A1c 10.3%
-Continue oral hypoglycemics
-Diabetes REHAB THERAPY MANAGER following
-Continue long and short acting insulin
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
Normocytic anemia - likely chronic. Hemoglobin 9.9, stable. Will need outpatient follow-up.
Hypokalemia -improved.
Nephrolithiasis -multiple nonobstructing right intrarenal calculi noted on CT.
Neurogenic bladder -history of urinary reconstruction. Has Sellers catheter through abdominal stoma, self catheterizes at home.
Spina bifida -s/p ELECTRONIC SPECIALIST shunt, history of multiple revisions, most recent was 2013. Shunt catheter appears fractured on x-ray, will need surgical follow-up.
LINH -on CPAP.
Hyperlipidemia -atorvastatin.
Essential hypertension -controlled.
Stage III sacral decubital wound
Anticipated Discharge: Within 24 hours
Subjective/Interval History
-
Date of Service: March 30, 2024
seen and examined. No new complaints. No acute overnight events
Objective Data
-
Labs:
Laboratory Results
03/30/24
08:25
Sodium 135
Potassium 4.1
Chloride 96 L
Carbon Dioxide 28
BUN 14
Creatinine 0.3 L
Glucose 170 H
Calcium 9.4
Vital Signs:
Vital Signs
Temp Pulse Resp BP Pulse Ox
98.9 F 99 16 127/76 98
03/30/24 15:15 03/30/24 15:15 03/30/24 15:15 03/30/24 15:15 03/30/24 15:15
I&O
03/29/24 03/30/24 03/31/24
06:59 06:59 06:59
Intake Total 2039
Output Total 3111 / 3111 5810 / 5810
Balance -1071 / -1071 -3820 / -3820
[2024-03-30 16:46] LABS: Glucose - Point of Care 151 mg/dl (70-99)
--- NOTE | 2024-03-30 16:56 | W.PN.UPDATE ---
Update Note
Progress Note Update
ctsp- ? cath malposition
pt has had lower urine output
cath appears ok- advances easily- flushed- some mucous- was able to pull out 250cc of urine- hand irrigated all mucous out- cath draining freely now
continue cath/prn hand irrigation for low output
resume self cath at time of discharge
[2024-03-30] MEDS: NOVOLOG FLEXPEN-MODERATE RESISTANCE 1 UNITS SC (18:05)
[2024-03-30] MEDS: LIPITOR 40 MG PO (18:06)
[2024-03-30 19:00] VITALS: BP 151/87
[2024-03-30 21:22] LABS: Glucose - Point of Care 203 mg/dl (70-99)
[2024-03-30] MEDS: TRICOR 145 MG PO (22:05)
[2024-03-30] MEDS: TYLENOL 650 MG PO (22:17)
[2024-03-30 23:16] VITALS: BP 113/67
[2024-03-31] VITALS (12 sets, daily range): BP systolic 96–144; BP diastolic 53–87
[2024-03-31] MEDS: ANCEF 10 IV ×3 (03:55→20:38)
--- NOTE | 2024-03-31 06:45 | W.PN.URO.CBU ---
Today's Communication / Plan
-
drain eval in IR
Assessment / Plan
-
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
gil functional now- irrigate prn
for drain eval/possible repositioning today
from my perspective- would be ok for discharge if no problems/changes in next 24-48hrs
would be discharged with drain (VN consult would prob be helpful) and antibx per ID
i did contact [facility]- they would be willing to follow up after discharge given her complex situation- will discuss with family
Diagnosis
-
Date of Service: March 31, 2024
-
Patient Diagnosis:
markus-renal abscess
IR drainage 03/25
Subjective
-
pt stable this am
gil has been draining after irrigation yesterday
fairly persistent drain out put
no fevers or wbc
Objective
-
Vital Signs
Temp Pulse Resp BP Pulse Ox
97.3 F 90 18 139/87 96
03/31/24 03:00 03/31/24 03:00 03/31/24 03:00 03/31/24 03:00 03/31/24 03:00
Intake and Output
03/29/24 03/30/24 03/31/24
06:59 06:59 06:59
Intake Total 2039 / 1989 1650 / 1650
Output Total 3111 / 3111 5810 / 5810 1005 / 1005
Balance -1071 / -1071 -3820 / -3820 645 / 645
Intake:
Oral fluids 2039 1650 / 165
Amount instilled into Drain (
Total)
Right Radha
Output:
Drain Output (Total) 155 / 155 110 / 110 105 / 105
Right Santos-Caruso 155 / 155 110 / 110 105 / 105
Urine, Gil 2956 / 2956 4100 / 4100 550 / 550
Urine, Voided 1600 / 1600 350 / 350
Other:
How many times incontinent 2
MODERATE amount urine
How many times incontinent 1
SATURATED amount urine
Review of Systems
-
Constitutional: Fatigue
Respiratory: No Symptoms
Cardiac: No Symptoms
Abdomen/GI: No Symptoms
Physical Exam
-
General - no acute distress
Abdomen - soft, non-tender, gil in stoma
[2024-03-31 07:43] LABS: Glucose - Point of Care 191 mg/dl (70-99)
[2024-03-31] MEDS: NOVOLOG FLEXPEN-MODERATE RESISTANCE SC (07:47)
[2024-03-31] MEDS: DDAVP NASAL SPRAY 1 SPRAY NASAL ×2 (07:52→20:39)
[2024-03-31] MEDS: DETROL LA 4 MG PO (07:53)
[2024-03-31] MEDS: MUCINEX 1200 MG PO (07:53)
[2024-03-31] MEDS: VITAMIN C 500 MG PO ×2 (07:53→17:50)
[2024-03-31] MEDS: LANTUS 0.25 UNITS SC ×2 (07:55→22:46)
[2024-03-31] MEDS: NOVOLOG FLEXPEN SC ×3 (08:12→18:43)
[2024-03-31 08:51] LABS: Hematocrit 32.4 % (37.0-47.0); Hemoglobin 9.9 g/dL (12.0-16.0); Mean Corp Hgb Conc. 30.6 g/dL (33.0-37.0); Mean Corpuscular Hgb 26.5 pg (27.0-31.0); Mean Corpuscular Volume 86.6 fL (81.0-99.0); Mean Platelet Volume 8.2 fL (7.4-10.4); Platelet Count 399 10^3/uL (130-400); Red Blood Cell Count 3.74 10^6/uL (4.20-5.40); Red Cell Dist. Width 17.2 % (11.5-14.5); White Blood Cell Count 11.4 10^3/uL (4.8-10.8)
--- NOTE | 2024-03-31 08:58 | PN.DE.MGMTRT ---
Insulin Management
- -
03/31/2024: Diabetes Management Follow up:
38 year old female admitted 03/24 with c/o R flank pain and fever, found to be in DKA with GAP 16.
Complex PMH:Spina bifida w shunt and multiple revisions, nephrolithiasis, LINH w/CPAP, self cath through stoma, stage 3 sacral ulcers, diabetes. She received all of her care @ [facility], recently moved here, ~ 2 weeks ago. States she has had diabetes 5
years. Has not set up new primary doctor since move. She states she has a glucose monitor but doesn't use it. Prior to admission was taking 1 mg Ozempic weekly on Saturday, glimepiride 2 mg BID. A1C on admission 10.3%, Cr 0.3, eGFR > 60.
Patient is awake, alert and oriented, offers no complaints, able to discuss diabetes mgt. No family at bedside
Patient was transitioned off DKA protocol on 03/25 to SQ insulin.
03/30 Glucose range 151 to 244. Lantus 25 units BID with novolog 16 units AC requiring 1-3 units of additional corrective insulin with meals
03/31 Will increase AC NovoLog to 18 units and continue Lantus 25 units BID. Will reduce corrective insulin from moderate to low corrective.
Discussed with pt and instructed her not to resume the glimepiride up return home.
Nursing to have patient do all injections with nursing supervision to increase patient confidence in readiness for discharge. A glucose monitor has been provided and instructed
Will follow
Diabetes History
- -
Type of Diabetes: 2 requiring insulin
Pre-Admission Diabetes Regimen
03/30/24
08:25
Creatinine 0.3 L
Lab Results
Hemoglobin A1c 10.3 % (4.0-5.6) H 03/24/24 22:08
Insulin Pump Settings
IP Diabetes Regimen
03/30/24 03/30/24 03/30/24
08:25 09:30 11:09
Glucose 170 H
POC Glucose 179 H 201 H
03/30/24 03/30/24 03/30/24
14:21 16:45 21:21
Glucose
POC Glucose 244 H 151 H 203 H
03/31/24
07:42
Glucose
POC Glucose 191 H
Meal type: Dinner
Meal type: Lunch
Meal type: Breakfast
Amount consumed: 100%
Amount consumed: 100%
Amount consumed: 100%
Patient Education
[2024-03-31] MEDS: NOVOLOG FLEXPEN-MODERATE RESISTANCE 1 UNITS SC (09:03)
[2024-03-31 09:17] LABS: Blood Urea Nitrogen 15 mg/dl (7-17); Calcium 9.1 mg/dl (8.4-10.2); Carbon Dioxide 28 mmol/L (22-30); Chloride 93 mmol/L (98-107); Estimated Creatinine Clearance 114 ml/min; Glucose 167 mg/dl (70-99); Potassium 4.5 mmol/L (3.5-5.1); Sodium 131 mmol/L (135-145); eGFR > 60.00
[2024-03-31 12:15] LABS: Glucose - Point of Care 169 mg/dl (70-99)
[2024-03-31] MEDS: NOVOLOG FLEXPEN-LOW RESISTANCE SC ×3 (12:20→18:44)
--- NOTE | 2024-03-31 13:42 | W.PN.HOSP.TC ---
Today's Communication/Plan
-
drain repositioning today
Assessment / Plan
Assessment / Plan
Physical Exam
NAD, resting comfortably in bed
Scleral anicteric
Moist mucous membranes
No JVD
CTA bilateral
Normal S1-S2 no murmurs
Soft nontender nondistended bowel sounds active
No peripheral pitting edema
Moves extremities spontaneously
AAOx3
Assessment and Plan
Sepsis due to right-sided pyelonephritis/abscess
-S/p drain placement
-Urology following
-Urology would like drain reposition
-This is planned for today
-Continue antibiotics per ID recommending
Diabetes type 2 presented with DKA now DKA resolved.
-A1c 10.3%
-Continue oral hypoglycemics
-Diabetes LEATHER LEVELER following
-Continue long and short acting insulin
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
Normocytic anemia - likely chronic. Hemoglobin 9.9, stable. Will need outpatient follow-up.
Hypokalemia -improved.
Nephrolithiasis -multiple nonobstructing right intrarenal calculi noted on CT.
Neurogenic bladder -history of urinary reconstruction. Has Sellers catheter through abdominal stoma, self catheterizes at home.
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 Shunt catheter appears fractured on x-ray, will need surgical follow-up.
LINH -on CPAP.
Hyperlipidemia -atorvastatin.
Essential hypertension -controlled.
Stage III sacral decubital wound
Anticipated Discharge: 24 - 48 hours
Subjective/Interval History
-
Date of Service: March 31, 2024
Seen and examined. No new complaints. No acute overnight events.
Objective Data
-
Labs:
Laboratory Results
03/31/24
08:11
WBC 11.4 H
Hgb 9.9 L
Hct 32.4 L
Plt Count 399
Sodium 131 L
Potassium 4.5
Chloride 93 L
Carbon Dioxide 28
BUN 15
Creatinine 0.3 L
Glucose 167 H
Calcium 9.1
Vital Signs:
Vital Signs
Temp Pulse Resp BP Pulse Ox
98.2 F 98 18 108/69 99
03/31/24 10:56 03/31/24 10:56 03/31/24 10:56 03/31/24 10:56 03/31/24 10:56
I&O
03/30/24 03/31/24 04/01/24
06:59 06:59 06:59
Intake Total 1989 1650 / 1650
Output Total 5810 / 5810 1005 / 1005
Balance -3820 / -3820 645 / 645
--- NOTE | 2024-03-31 14:47 | CM ---
CM reviewed chart, patient for drain repositioning today. Patient seen bedside with family, reports no needs to CM at this time. CM will continue to follow for all discharge planning needs.
Plan; home with family, [facility], when stable.
--- NOTE | 2024-03-31 17:09 | W.PN.ID1 ---
Date of Service
Date of Service: March 31, 2024
Today's Communication
Continue antibiotics for today.
Assessment / Plan
Large right renal abscess;
- Ongoing drainage noted.
- Cx's with Klebsiella pneumoniae
- repeat imaging with persistent, but decreased collection.
Leukocytosis
Hx flank pain
DM; uncontrolled (HbA1c = 10.3)
Hx nephrolithiasis
Urinary retention; chronic self-catheterization via stoma
Spina bifida
Obesity
LINH
Recommendations:
Cultures reveal growth of Klebsiella pneumoniae from abscess and from blood.
Repeat CT a/p shows decrease in size of abscess from 11.2 cm x 9.4 cm to 7.6 cm x 3.5 cm
Continue cefazolin 2 g IV every 8 hours for now.
Continue to monitor right flank drain output.
For drain repositioning today.
����������������������������������������������������������
Chief Complaint
-: Other (Right renal abscess.)
Subjective / Review of Systems
Review of Systems: No Fever and No Chills
Vital Signs / Physical Exam
Vital Signs
Vital Signs
Temp Pulse Resp BP Pulse Ox
98.4 F 96 18 118/77 98
03/31/24 16:20 03/31/24 16:20 03/31/24 16:20 03/31/24 16:20 03/31/24 16:20
Physical Exam
Constitutional: No Acute Distress, Comfortable, Chronically Ill and Non-toxic
Eyes: Sclera Anicteric
Cardiovascular: Regular Rate and S1/S2; Negative S3/S4
Pulmonary: Clear
Gastrointestinal: Soft, Non Tender and Non Distended
Genito-Urinary: Other (Right flank CLARISSA drain: Ongoing purulent drainage noted.)
Extremities: Negative Edema, Cyanosis or Erythema
Neurological: Awake and Alert
Psychological: Calm
Objective Data
Lab Data
Lab Results
03/31/24 08:11
03/31/24 08:11
PT 16.2 Sec (11.4-14.6) H 03/24/24 15:59
INR 1.27 03/24/24 15:59
APTT 26.8 Sec (23.4-35.0) 03/24/24 22:08
Estimated Creat Clear 114 ml/min 03/31/24 08:11
Lactic Acid 1.6 mmol/L (0.7-2.0) 03/24/24 15:59
Total Bilirubin 0.6 mg/dl (0.2-1.3) 03/24/24 12:25
AST 24 U/L (14-36) 03/24/24 12:25
ALT 23 U/L (0-35) 03/24/24 12:25
Alkaline Phosphatase 113 U/L (38-126) 03/24/24 12:25
Most recent labs reviewed.
Micro Results:
03/24/24 15:59 Blood Culture - Final
Blood/Venous Klebsiella pneumoniae
Gram Stain - Final
03/26/24 22:27 Blood Culture - Preliminary
Blood/Venous No Growth in 4 days- Final report to follow
03/24/24 15:59 Blood Culture - Final
Blood/Venous No Growth - Final Report
03/26/24 04:08 Urine Culture - Final
Urine NO GROWTH
03/26/24 10:49 MRSA Screen - Final
Nose No Methicillin Resistant Staphylococcus aureus isolated.
03/25/24 15:45 Body Fluid Culture - Final
Fluid Klebsiella pneumoniae
Gram Stain - Final
Blood Culture Preliminary 03/24/24
Klebsiella pneumoniae
Organism 1 Klebsiella pneumoniae
1. Klebsiella pneumoniae
M.I.C. RX
--------- ---
Amoxicillin/Potas. Clavulanate <=8/4 S
Ampicillin >16 R
Ampicillin/Sulbactam 8/4 S
Aztreonam <=4 S
Cefazolin <=2 S
Ertapenem <=0.5 S
Ciprofloxacin <=0.25 S
Gentamicin <=2 S
Meropenem <=1 S
Piperacillin/Tazobactam <=8 S
Tetracycline >8 R
Tobramycin <=2 S
Trimethoprim/Sulfamethoxazole >2/38 R
Imaging:
03/24/2024 CT chest/abdomen/pelvis with IV contrast: In the chest a small right pleural effusion is noted. There is a small subcentimeter solid pulmonary nodule. Severe right convex curvature of the thoracolumbar junction. Multilevel vertebral
body anomaly in the upper thoracic spine. In the abdomen and pelvis a large 14 cm centrally cystic mass exophytic from the posterior cortex of the right kidney and extending posteriorly through the posterior abdominal wall is noted. Multiple
nonobstructing right intrarenal calculi are seen. Moderate amount of fecal material throughout the colon. A neurogenic bladder is noted. Please see full dictation for additional detail. Film personally viewed.
03/29/2024 CT a/p: There is decreased size of the loculated right perinephric abscess which now measures up to 7.6 cm (from 11.2 cm). There is persistent extension into the right kidney consistent with pyelonephritis. The percutaneous pigtail
catheter tip terminates in the lateral aspect of the collection.
[2024-03-31] MEDS: LIPITOR 40 MG PO (17:50)
[2024-03-31 17:55] LABS: Glucose - Point of Care 150 mg/dl (70-99)
[2024-03-31] MEDS: NOVOLOG FLEXPEN 18 UNITS SC (20:39)
[2024-03-31] MEDS: NOVOLOG FLEXPEN-LOW RESISTANCE 1 UNITS SC (20:40)
[2024-03-31 22:36] LABS: Glucose - Point of Care 302 mg/dl (70-99)
[2024-03-31] MEDS: TRICOR 145 MG PO (22:46)
[2024-04-01 03:10] VITALS: BP 158/99
[2024-04-01] MEDS: ANCEF 10 IV ×3 (04:52→20:27)
[2024-04-01 07:00] VITALS: BP 142/83
[2024-04-01 07:34] LABS: Glucose - Point of Care 166 mg/dl (70-99)
--- NOTE | 2024-04-01 07:50 | W.PN.URO.CBU ---
Today's Communication / Plan
-
clear for discharge
Assessment / Plan
-
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
gil functional now- irrigate prn
drain repositioned and upsized yesterday
clear for discharge from my standpoint with drain and antibx per ID
stomal gil can be removed at time of discharge for patient to resume self cath
pt to f/u with [facility] urology team whom i have contacted
Diagnosis
-
Date of Service: April 01, 2024
-
Patient Diagnosis:
markus-renal abscess
IR drainage 03/25- drain re-positioned 03/31
Subjective
-
pt asleep
drain repositioned and upsized in IR yesterday
Objective
-
Vital Signs
Temp Pulse Resp BP Pulse Ox
97.7 F 85 18 158/99 97
04/01/24 03:10 04/01/24 03:10 04/01/24 03:10 04/01/24 03:10 04/01/24 03:10
Intake and Output
03/31/24 04/01/24 04/02/24
06:59 06:59 06:59
Intake Total 1650 / 1650 610 / 610
Output Total 1005 / 1005 1275 / 1275
Balance 645 / 645 -665 / -665
Intake:
Oral fluids 1650 / 1650 600 / 600
Amount instilled into Drain (
Total)
Right Santos-Caruso Placed in
IR
Output:
Drain Output (Total) 105 / 105 100 / 100
Right Santos-Caruso 105 / 105 60 / 60
Right Santos-Caruso Placed in 40 40
IR
Urine, Gil 550 / 550 650 / 650
Urine, Voided 350 / 350
Suprapubic output 525 / 525
Other:
How many times incontinent 2
MODERATE amount urine
Physical Exam
-
General - no acute distress
[2024-04-01 07:55] LABS: Hematocrit 31.3 % (37.0-47.0); Hemoglobin 10.2 g/dL (12.0-16.0); Mean Corp Hgb Conc. 32.6 g/dL (33.0-37.0); Mean Corpuscular Hgb 27.8 pg (27.0-31.0); Mean Corpuscular Volume 85.3 fL (81.0-99.0); Mean Platelet Volume 8.3 fL (7.4-10.4); Platelet Count 365 10^3/uL (130-400); Red Blood Cell Count 3.67 10^6/uL (4.20-5.40); Red Cell Dist. Width 17.4 % (11.5-14.5); White Blood Cell Count 11.1 10^3/uL (4.8-10.8)
--- NOTE | 2024-04-01 08:29 | PN.DE.MGMTRT ---
Insulin Management
- -
04/01/2024: Diabetes Management Follow up:
38 year old female admitted 03/24 with c/o R flank pain and fever, found to be in DKA with GAP 16.
Complex PMH:Spina bifida w shunt and multiple revisions, nephrolithiasis, LINH w/CPAP, self cath through stoma, stage 3 sacral ulcers, diabetes. She received all of her care @ [facility], recently moved here, ~ 2 weeks ago. States she has had diabetes 5
years. Has not set up new primary doctor since move. She states she has a glucose monitor but doesn't use it. Prior to admission was taking 1 mg Ozempic weekly on Saturday, glimepiride 2 mg BID. A1C on admission 10.3%, Cr 0.3, eGFR > 60.
Patient is awake, alert and oriented, offers no complaints, able to discuss diabetes mgt. No family at bedside
Patient was transitioned off DKA protocol on 03/25 to SQ insulin.
03/31 AC NovoLog increased to 18 units and continued Lantus 25 units BID. Corrective insulin reduced from moderate to low corrective. Patient was NPO most of day for procedure in IR.
04/01 Glucose range 150 to 302. Will continue 18 novolog AC with low corrective and lantus 25 units BID.
Nursing to have patient do all injections with nursing supervision to increase patient confidence in readiness for discharge. A glucose monitor has been provided and instructed
Discussed with pt and instructed her not to resume the glimepiride up return home.
Will follow
Diabetes History
- -
Type of Diabetes: 2 requiring insulin
Pre-Admission Diabetes Regimen
03/31/24
08:11
Creatinine 0.3 L
Lab Results
Hemoglobin A1c 10.3 % (4.0-5.6) H 03/24/24 22:08
Insulin Pump Settings
IP Diabetes Regimen
03/31/24 03/31/24 03/31/24
08:11 12:12 17:54
Glucose 167 H
POC Glucose 169 H 150 H
03/31/24 04/01/24
22:35 07:33
Glucose
POC Glucose 302 H 166 H
Patient Education
[2024-04-01 09:06] LABS: Blood Urea Nitrogen 13 mg/dl (7-17); Calcium 8.7 mg/dl (8.4-10.2); Carbon Dioxide 27 mmol/L (22-30); Chloride 91 mmol/L (98-107); Estimated Creatinine Clearance 114 ml/min; Glucose 128 mg/dl (70-99); Potassium 4.4 mmol/L (3.5-5.1); Sodium 131 mmol/L (135-145); eGFR > 60.00
[2024-04-01] MEDS: NOVOLOG FLEXPEN-LOW RESISTANCE SC (10:40)
[2024-04-01] MEDS: NOVOLOG FLEXPEN SC (10:41)
[2024-04-01] MEDS: DDAVP NASAL SPRAY 1 SPRAY NASAL ×2 (10:44→20:26)
[2024-04-01] MEDS: DETROL LA 4 MG PO (10:48)
[2024-04-01] MEDS: MUCINEX 1200 MG PO (10:48)
[2024-04-01] MEDS: VITAMIN C 500 MG PO ×2 (10:48→18:14)
[2024-04-01 11:46] LABS: Glucose - Point of Care 153 mg/dl (70-99)
--- NOTE | 2024-04-01 12:05 | W.PN.ID1 ---
Date of Service
Date of Service: April 01, 2024
Today's Communication
Continue antibiotics.
Assessment / Plan
Large right renal abscess;
- Ongoing drainage noted.
- Cx's with Klebsiella pneumoniae
- repeat imaging with persistent, but decreased collection.
Leukocytosis
Hx flank pain
DM; uncontrolled (HbA1c = 10.3)
Hx nephrolithiasis
Urinary retention; chronic self-catheterization via stoma
Spina bifida
Obesity
LINH
Recommendations:
Cultures reveal growth of Klebsiella pneumoniae from abscess and from blood.
Repeat CT a/p shows decrease in size of abscess from 11.2 cm x 9.4 cm to 7.6 cm x 3.5 cm
Continue cefazolin 2 g IV every 8 hours for another 7 days or so, followed by a course of oral antibiotic therapy.
Home infusion sheet has been placed on paper chart.
Continue to monitor right flank drain output.
����������������������������������������������������������
Chief Complaint
-: Other (Right renal abscess.)
Subjective / Review of Systems
Patient seen and examined. Feels well. Denies specific complaints. Drain recently repositioned and upsized. Continues to have purulent drainage.
Review of Systems: No Fever and No Chills
Vital Signs / Physical Exam
Vital Signs
Vital Signs
Temp Pulse Resp BP Pulse Ox
97.4 F 88 18 142/83 99
04/01/24 07:00 04/01/24 07:00 04/01/24 07:00 04/01/24 07:00 04/01/24 07:00
Physical Exam
Constitutional: No Acute Distress, Comfortable, Chronically Ill and Non-toxic
Eyes: Sclera Anicteric
Cardiovascular: Regular Rate
Pulmonary: Clear and Non Labored
Gastrointestinal: Soft, Non Tender and Non Distended
Genito-Urinary: Other (Right flank CLARISSA drain: Ongoing purulent drainage noted.)
Extremities: Negative Edema, Cyanosis or Erythema
Neurological: Awake and Alert
Psychological: Calm
Objective Data
Lab Data
Lab Results
04/01/24 06:58
04/01/24 06:58
PT 16.2 Sec (11.4-14.6) H 03/24/24 15:59
INR 1.27 03/24/24 15:59
APTT 26.8 Sec (23.4-35.0) 03/24/24 22:08
Estimated Creat Clear 114 ml/min 04/01/24 06:58
Lactic Acid 1.6 mmol/L (0.7-2.0) 03/24/24 15:59
Total Bilirubin 0.6 mg/dl (0.2-1.3) 03/24/24 12:25
AST 24 U/L (14-36) 03/24/24 12:25
ALT 23 U/L (0-35) 03/24/24 12:25
Alkaline Phosphatase 113 U/L (38-126) 03/24/24 12:25
Most recent labs reviewed.
Micro Results:
03/26/24 22:27 Blood Culture - Final
Blood/Venous No Growth - Final Report
03/24/24 15:59 Blood Culture - Final
Blood/Venous Klebsiella pneumoniae
Gram Stain - Final
03/24/24 15:59 Blood Culture - Final
Blood/Venous No Growth - Final Report
03/26/24 04:08 Urine Culture - Final
Urine NO GROWTH
03/26/24 10:49 MRSA Screen - Final
Nose No Methicillin Resistant Staphylococcus aureus isolated.
03/25/24 15:45 Body Fluid Culture - Final
Fluid Klebsiella pneumoniae
Gram Stain - Final
Blood Culture Preliminary 03/24/24
Klebsiella pneumoniae
Organism 1 Klebsiella pneumoniae
1. Klebsiella pneumoniae
M.I.C. RX
--------- ---
Amoxicillin/Potas. Clavulanate <=8/4 S
Ampicillin >16 R
Ampicillin/Sulbactam 8/4 S
Aztreonam <=4 S
Cefazolin <=2 S
Ertapenem <=0.5 S
Ciprofloxacin <=0.25 S
Gentamicin <=2 S
Meropenem <=1 S
Piperacillin/Tazobactam <=8 S
Tetracycline >8 R
Tobramycin <=2 S
Trimethoprim/Sulfamethoxazole >2/38 R
Imaging:
03/24/2024 CT chest/abdomen/pelvis with IV contrast: In the chest a small right pleural effusion is noted. There is a small subcentimeter solid pulmonary nodule. Severe right convex curvature of the thoracolumbar junction. Multilevel vertebral
body anomaly in the upper thoracic spine. In the abdomen and pelvis a large 14 cm centrally cystic mass exophytic from the posterior cortex of the right kidney and extending posteriorly through the posterior abdominal wall is noted. Multiple
nonobstructing right intrarenal calculi are seen. Moderate amount of fecal material throughout the colon. A neurogenic bladder is noted. Please see full dictation for additional detail. Film personally viewed.
03/29/2024 CT a/p: There is decreased size of the loculated right perinephric abscess which now measures up to 7.6 cm (from 11.2 cm). There is persistent extension into the right kidney consistent with pyelonephritis. The percutaneous pigtail
catheter tip terminates in the lateral aspect of the collection.
Care Review
Plan reviewed with: Physician (Hospitalist)
--- NOTE | 2024-04-01 12:24 | CM ---
Addendum entered by Sarah Ramon 04/01/24 16:33:
Per Attending, patient will be cleared for DC tomorrow with Home Health and Home Infusion services
Script and clinicals faxed to Gely @ [facility]
Per Attending PICC/Midline was ordered for today
Home Health referral sent to [facility] via [facility] for VN services
Gely from [facility] reported she can teach mother tomorrow; and [facility] can visit patient on Saturday
CM needs to send via fax PICC/Midline documentation when available on the chart
Original Note:
Plan: Discharge to home with [facility]; script and clinicals faxed to Gely
CM will send PICC/Midline documentation when available on the chart
[2024-04-01] MEDS: NOVOLOG FLEXPEN 18 UNITS SC ×3 (12:38→18:18)
[2024-04-01] MEDS: NOVOLOG FLEXPEN-LOW RESISTANCE 1 UNITS SC ×3 (12:38→18:17)
[2024-04-01] MEDS: LANTUS 0.25 UNITS SC ×2 (12:40→22:21)
[2024-04-01] MEDS: FLUSH (NSS) 2 FLUSH IV (12:41)
--- NOTE | 2024-04-01 14:20 | W.PN.HOSP.TC ---
Today's Communication/Plan
-
Assessment / Plan
Assessment / Plan
Physical Exam
NAD, resting comfortably in bed
Scleral anicteric
Moist mucous membranes
No JVD
CTA bilateral
Normal S1-S2 no murmurs
Soft nontender nondistended bowel sounds active
No peripheral pitting edema
Moves extremities spontaneously
AAOx3
Assessment and Plan
Sepsis due to right-sided pyelonephritis/abscess
-S/p drain placement
-Urology following
-Urology would like drain reposition
-This is planned for today
-Continue antibiotics per ID recommending
--WIll need IVATB x7days per ID, will cnsult IV team to place a midline
--Infusion sheet per ID left in Chart
--Post IV Atb will be on po atb per ID
Diabetes type 2 presented with DKA now DKA resolved.
-A1c 10.3%
-Continue oral hypoglycemics
-Diabetes REHAB MANAGER following
-Continue long and short acting insulin
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
Normocytic anemia - likely chronic. Hemoglobin 9.9, stable. Will need outpatient follow-up.
Hypokalemia -improved.
Nephrolithiasis -multiple nonobstructing right intrarenal calculi noted on CT.
Neurogenic bladder -history of urinary reconstruction. Has Sellers catheter through abdominal stoma, self catheterizes at home.
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 Shunt catheter appears fractured on x-ray, will need surgical follow-up.
LINH -on CPAP.
Hyperlipidemia -atorvastatin.
Essential hypertension -controlled.
Stage III sacral decubital wound
Anticipated Discharge: 24 - 48 hours
Subjective/Interval History
-
Date of Service: April 01, 2024
Seen and examined. No new complaints. No acute overnight events
Objective Data
-
Labs:
Laboratory Results
04/01/24
06:58
WBC 11.1 H
Hgb 10.2 L
Hct 31.3 L
Plt Count 365
Sodium 131 L
Potassium 4.4
Chloride 91 L
Carbon Dioxide 27
BUN 13
Creatinine 0.3 L
Glucose 128 H
Calcium 8.7
Vital Signs:
Vital Signs
Temp Pulse Resp BP Pulse Ox
97.4 F 88 18 142/83 99
04/01/24 07:00 04/01/24 07:00 04/01/24 07:00 04/01/24 07:00 04/01/24 07:00
I&O
03/31/24 04/01/24 04/02/24
06:59 06:59 06:59
Intake Total 1650 / 1650 610 / 610
Output Total 1005 / 1005 1275 / 1275
Balance 645 / 645 -665 / -665
[2024-04-01 15:17] VITALS: BP 144/87
[2024-04-01 17:01] LABS: Glucose - Point of Care 169 mg/dl (70-99)
[2024-04-01] MEDS: LIPITOR 40 MG PO (18:14)
[2024-04-01 21:31] LABS: Glucose - Point of Care 138 mg/dl (70-99)
[2024-04-01] MEDS: TRICOR 145 MG PO (22:21)
[2024-04-01 23:30] VITALS: BP 125/84
[2024-04-02] MEDS: ANCEF 10 IV ×3 (04:50→21:11)
[2024-04-02 05:27] LABS: Hematocrit 29.2 % (37.0-47.0); Hemoglobin 9.1 g/dL (12.0-16.0); Mean Corp Hgb Conc. 31.2 g/dL (33.0-37.0); Mean Corpuscular Hgb 26.8 pg (27.0-31.0); Mean Corpuscular Volume 85.9 fL (81.0-99.0); Mean Platelet Volume 8.1 fL (7.4-10.4); Platelet Count 301 10^3/uL (130-400); Red Cell Dist. Width 17.4 % (11.5-14.5); White Blood Cell Count 11.8 10^3/uL (4.8-10.8)
[2024-04-02 05:49] LABS: Blood Urea Nitrogen 15 mg/dl (7-17); Calcium 8.9 mg/dl (8.4-10.2); Carbon Dioxide 27 mmol/L (22-30); Chloride 92 mmol/L (98-107); Estimated Creatinine Clearance 114 ml/min; Glucose 130 mg/dl (70-99); Potassium 4.3 mmol/L (3.5-5.1); Sodium 130 mmol/L (135-145); eGFR > 60.00
[2024-04-02 07:00] VITALS: BP 131/88
--- NOTE | 2024-04-02 07:42 | PN.DE.MGMTRT ---
Insulin Management
- -
04/02/2024: Diabetes Management Follow up:
38 year old female admitted 03/24 with c/o R flank pain and fever, found to be in DKA with GAP 16.
Complex PMH:Spina bifida w shunt and multiple revisions, nephrolithiasis, LINH w/CPAP, self cath through stoma, stage 3 sacral ulcers, diabetes. She received all of her care @ [facility], recently moved here, ~ 2 weeks ago. States she has had diabetes 5
years. Has not set up new primary doctor since move. She states she has a glucose monitor but doesn't use it. Prior to admission was taking 1 mg Ozempic weekly on Saturday, glimepiride 2 mg BID. A1C on admission 10.3%, Cr 0.3, eGFR > 60.
Patient is awake, alert and oriented, offers no complaints, able to discuss diabetes mgt. No family at bedside
Patient was transitioned off DKA protocol on 03/25 to SQ insulin.
04/02 Glucose range 138 to 169 yesterday. Will continue 18 novolog AC with low corrective and lantus 25 units BID.
Nursing to have patient do all injections with nursing supervision to increase patient confidence in readiness for discharge. A glucose monitor has been provided and instructed
Discussed with pt and instructed her not to resume the glimepiride up return home.
Will follow
Diabetes History
- -
Type of Diabetes: 2 requiring insulin
Pre-Admission Diabetes Regimen
04/01/24 04/02/24
06:58 05:03
Creatinine 0.3 L 0.3 L
Lab Results
Hemoglobin A1c 10.3 % (4.0-5.6) H 03/24/24 22:08
Insulin Pump Settings
IP Diabetes Regimen
04/01/24 04/01/24 04/01/24
06:58 11:45 17:00
Glucose 128 H
POC Glucose 153 H 169 H
04/01/24 04/02/24
21:30 05:03
Glucose 130 H
POC Glucose 138 H
Patient Education
--- NOTE | 2024-04-02 08:14 | W.PN.URO.CBU ---
Today's Communication / Plan
-
discharge when medically cleared
Assessment / Plan
-
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
gil functional now- irrigate prn
drain repositioned and upsized yesterday
clear for discharge from my standpoint with drain and antibx per ID
stomal gil can be removed at time of discharge for patient to resume self cath
[facility] whom i have contacted
Diagnosis
-
Date of Service: April 02, 2024
-
Patient Diagnosis:
markus-renal abscess
IR drainage 03/25- drain re-positioned 03/31
Subjective
-
pt resting
no events
wbc stable at 11
no fevers
persistent steady purulent drainage from LADARIUS
Objective
-
Vital Signs
Temp Pulse Resp BP Pulse Ox
97.7 F 93 18 125/84 96
04/01/24 23:30 04/01/24 23:30 04/01/24 23:30 04/01/24 23:30 04/01/24 23:30
Intake and Output
04/01/24 04/02/24 04/03/24
06:59 06:59 06:59
Intake Total 610 / 610 970 / 970
Output Total 1275 / 1275 425 / 425
Balance -665 / -665 545 / 545
Intake:
Oral fluids 600 / 600 960 / 960
Amount instilled into Drain (
Total)
Right Santos-Caruso
Right Santos-Caruso Placed in
IR
Output:
Drain Output (Total) 100 / 100 75 / 75
Right Santos-Caruso 60 / 60 25 / 25
Right Santos-Caruso Placed in 40 / 40 50 / 50
IR
Urine, Gil 650 / 650 350 / 350
Suprapubic output 525 / 525
Other:
How many times incontinent 1
MODERATE amount urine
How many times incontinent 1
SATURATED amount urine
Laboratory Results
04/02/24 05:03
04/02/24 05:03
Physical Exam
-
General - no acute distress
Abdomen -stomal gil in place/ladarius in place
[2024-04-02 10:03] LABS: Glucose - Point of Care 163 mg/dl (70-99)
--- NOTE | 2024-04-02 10:34 | CM ---
Addendum entered by Tatiana Alejandra 04/02/24 13:37:
Family not comfortable with discharge today, discharge scheduled for tomorrow, will need discharge around 12:00 p.m. for patient to be home for delivery and receive second dose of antibiotic. Sheyla CROOK updated on discharge for tomorrow. Family
requesting to meet with inclusion paraeducator, TT sent to Hospitalist/Medical Staff Physician.
Plan; discharge tomorrow with Sheyla CROOK and [facility]
Addendum entered by Tatiana Alejandra 04/02/24 13:08:
Patient seen bedside with Gely from [facility]. IMM signed with patients mother, placed in chart.
Original Note:
CM reviewed chart, line information faxed to [facility]. CM spoke with Gely from [facility], spoke with patients parents, will [facility] around 12:30 p.m., will deliver supplies tonight, Sheyla CROOK to come out Saturday. Patient
seen bedside, parents not present at this time. CM will continue to follow for all discharge planning needs.
Plan; home with parents, Sheyla CROOK, [facility]
[place]
[facility]: [phone]
[2024-04-02 12:28] LABS: Glucose - Point of Care 362 mg/dl (70-99)
[2024-04-02] MEDS: NOVOLOG FLEXPEN-LOW RESISTANCE 5 UNITS SC (12:28)
[2024-04-02] MEDS: NOVOLOG FLEXPEN 18 UNITS SC ×3 (12:28→18:43)
[2024-04-02] MEDS: DDAVP NASAL SPRAY 1 SPRAY NASAL ×2 (12:35→21:11)
[2024-04-02] MEDS: MUCINEX 1200 MG PO (12:48)
[2024-04-02] MEDS: LANTUS 0.25 UNITS SC ×2 (12:48→21:29)
[2024-04-02] MEDS: VITAMIN C 500 MG PO ×2 (12:48→18:46)
[2024-04-02] MEDS: DETROL LA 4 MG PO (12:48)
[2024-04-02] MEDS: FLUSH (NSS) 2 FLUSH IV ×2 (13:00→21:11)
--- NOTE | 2024-04-02 13:15 | W.PN.HOSP.TC ---
Today's Communication/Plan
-
Npehrology consult
Assessment / Plan
Assessment / Plan
Physical Exam
NAD, resting comfortably in bed
Scleral anicteric
Moist mucous membranes
No JVD
CTA bilateral
Normal S1-S2 no murmurs
Soft nontender nondistended bowel sounds active
No peripheral pitting edema
Moves extremities spontaneously
AAOx3
Assessment and Plan
Sepsis due to right-sided pyelonephritis/abscess
-S/p drain placement
-Urology following
-Urology would like drain reposition
-This is planned for today
-Continue antibiotics per ID recommending
--WIll need IVATB x7days per ID, will cnsult IV team to place a midline
--Infusion sheet per ID left in Chart
--Post IV Atb will be on po atb per ID
Diabetes type 2 presented with DKA now DKA resolved.
-A1c 10.3%
-Continue oral hypoglycemics
-Diabetes PAVING AND SURFACING LABOURER following
-Continue long and short acting insulin
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
Hyponatremia likely related to desmopressin.
-Family is requesting salt tabs along with increased dose of desmopressin with 2 sprays in each nostril twice a day.
-Desmopressin would further worsen hyponatremia. Will like to avoid this
-Nephrology consulted
Normocytic anemia - likely chronic. Hemoglobin 9.9, stable. Will need outpatient follow-up.
Hypokalemia -improved.
Nephrolithiasis -multiple nonobstructing right intrarenal calculi noted on CT.
Neurogenic bladder -history of urinary reconstruction. Has Sellers catheter through abdominal stoma, self catheterizes at home.
Spina bifida -s/p HOSPICE MUSIC THERAPY shunt, history of multiple revisions, most recent was 2013. Shunt catheter appears fractured on x-ray, will need surgical follow-up.
LINH -on CPAP.
Hyperlipidemia -atorvastatin.
Essential hypertension -controlled.
Stage III sacral decubital wound
Anticipated Discharge: 24 - 48 hours
Subjective/Interval History
-
Date of Service: April 02, 2024
Seen and examined. No new complaints. No acute overnight events
Objective Data
-
Labs:
Laboratory Results
04/02/24
05:03
WBC 11.8 H
Hgb 9.1 L
Hct 29.2 L
Plt Count 301
Sodium 130 L
Potassium 4.3
Chloride 92 L
Carbon Dioxide 27
BUN 15
Creatinine 0.3 L
Glucose 130 H
Calcium 8.9
Vital Signs:
Vital Signs
Temp Pulse Resp BP Pulse Ox
97.7 F 93 18 125/84 96
04/01/24 23:30 04/01/24 23:30 04/01/24 23:30 04/01/24 23:30 04/01/24 23:30
I&O
04/01/24 04/02/24 04/03/24
06:59 06:59 06:59
Intake Total 610 / 610 970 / 970
Output Total 1275 / 1275 425 / 425
Balance -665 / -665 545 / 545
[2024-04-02 13:51] VITALS: BP 131/88
--- NOTE | 2024-04-02 14:01 | W.PN.ID1 ---
Date of Service
Date of Service: April 02, 2024
Today's Communication
Continue current course of antibiotics.
Assessment / Plan
Large right renal abscess;
- Ongoing drainage noted.
- Cx's with Klebsiella pneumoniae
- repeat imaging with persistent, but decreased collection.
Leukocytosis
Hx flank pain
DM; uncontrolled (HbA1c = 10.3)
Hx nephrolithiasis
Urinary retention; chronic self-catheterization via stoma
Spina bifida
Obesity
LINH
Recommendations:
Cultures with Klebsiella pneumoniae from abscess and from blood.
Repeat CT a/p shows decrease in size of abscess from 11.2 cm x 9.4 cm to 7.6 cm x 3.5 cm
Repeat blood cultures without growth.
Continue cefazolin 2 g IV every 8 hours for another 7 days or so, followed by a course of oral antibiotic therapy.
Home infusion sheet has been placed on paper chart.
Continue to monitor right flank drain output; for repositioning today.
����������������������������������������������������������
Chief Complaint
-: Other (Right renal abscess.)
Subjective / Review of Systems
Review of Systems: No Fever, No Chills and No Abdominal Pain
Vital Signs / Physical Exam
Vital Signs
Vital Signs
Temp Pulse Resp BP Pulse Ox
97.4 F 99 19 131/88 98
04/02/24 07:00 04/02/24 07:00 04/02/24 07:00 04/02/24 07:00 04/02/24 07:00
Physical Exam
Constitutional: No Acute Distress, Comfortable, Chronically Ill and Non-toxic
Eyes: Sclera Anicteric
Cardiovascular: Regular Rate and S1/S2; Negative S3/S4
Pulmonary: Clear and Non Labored
Gastrointestinal: Soft, Non Tender and Non Distended
Genito-Urinary: Other (Right flank CLARISSA drain: Ongoing purulent drainage noted.)
Extremities: Negative Edema, Cyanosis or Erythema
Neurological: Awake and Alert
Psychological: Calm
Objective Data
Lab Data
Lab Results
04/02/24 05:03
04/02/24 05:03
PT 16.2 Sec (11.4-14.6) H 03/24/24 15:59
INR 1.27 03/24/24 15:59
APTT 26.8 Sec (23.4-35.0) 03/24/24 22:08
Estimated Creat Clear 114 ml/min 04/02/24 05:03
Lactic Acid 1.6 mmol/L (0.7-2.0) 03/24/24 15:59
Total Bilirubin 0.6 mg/dl (0.2-1.3) 03/24/24 12:25
AST 24 U/L (14-36) 03/24/24 12:25
ALT 23 U/L (0-35) 03/24/24 12:25
Alkaline Phosphatase 113 U/L (38-126) 03/24/24 12:25
Most recent labs reviewed.
Micro Results:
03/26/24 22:27 Blood Culture - Final
Blood/Venous No Growth - Final Report
03/24/24 15:59 Blood Culture - Final
Blood/Venous Klebsiella pneumoniae
Gram Stain - Final
03/24/24 15:59 Blood Culture - Final
Blood/Venous No Growth - Final Report
03/26/24 04:08 Urine Culture - Final
Urine NO GROWTH
03/26/24 10:49 MRSA Screen - Final
Nose No Methicillin Resistant Staphylococcus aureus isolated.
03/25/24 15:45 Body Fluid Culture - Final
Fluid Klebsiella pneumoniae
Gram Stain - Final
Blood Culture Preliminary 03/24/24
Klebsiella pneumoniae
Organism 1 Klebsiella pneumoniae
1. Klebsiella pneumoniae
M.I.C. RX
--------- ---
Amoxicillin/Potas. Clavulanate <=8/4 S
Ampicillin >16 R
Ampicillin/Sulbactam 8/4 S
Aztreonam <=4 S
Cefazolin <=2 S
Ertapenem <=0.5 S
Ciprofloxacin <=0.25 S
Gentamicin <=2 S
Meropenem <=1 S
Piperacillin/Tazobactam <=8 S
Tetracycline >8 R
Tobramycin <=2 S
Trimethoprim/Sulfamethoxazole >2/38 R
Imaging:
03/24/2024 CT chest/abdomen/pelvis with IV contrast: In the chest a small right pleural effusion is noted. There is a small subcentimeter solid pulmonary nodule. Severe right convex curvature of the thoracolumbar junction. Multilevel vertebral
body anomaly in the upper thoracic spine. In the abdomen and pelvis a large 14 cm centrally cystic mass exophytic from the posterior cortex of the right kidney and extending posteriorly through the posterior abdominal wall is noted. Multiple
nonobstructing right intrarenal calculi are seen. Moderate amount of fecal material throughout the colon. A neurogenic bladder is noted. Please see full dictation for additional detail. Film personally viewed.
03/29/2024 CT a/p: There is decreased size of the loculated right perinephric abscess which now measures up to 7.6 cm (from 11.2 cm). There is persistent extension into the right kidney consistent with pyelonephritis. The percutaneous pigtail
catheter tip terminates in the lateral aspect of the collection.
[2024-04-02 14:24] LABS: Glucose - Point of Care 218 mg/dl (70-99)
[2024-04-02] MEDS: NOVOLOG FLEXPEN-LOW RESISTANCE 2 UNITS SC (14:36)
--- NOTE | 2024-04-02 14:46 | PN.DE.MGMTRT ---
Insulin Management
- -
Patient family requested I review all aspects of diabetes care today as patient being discharged. Again instructed family on types of insulin and action, insulin prep and administration, novolog to be taken with each meal in the abdomen and lantus
to be taken at 10am and 10pm in the leg. Testing blood sugar AC and HS. My number provided for further questions.
Patient has been self injecting with nursing supervision. Nurse reports Tisha did well with self administration but does still need verbal cues for prep. Provided again the Insulin pen prep and administration instruction sheet with pictures.
Diabetes History
- -
Type of Diabetes: 2 requiring insulin
Pre-Admission Diabetes Regimen
04/02/24
05:03
Creatinine 0.3 L
Lab Results
Hemoglobin A1c 10.3 % (4.0-5.6) H 03/24/24 22:08
Insulin Pump Settings
IP Diabetes Regimen
04/01/24 04/01/24 04/02/24
17:00 21:30 05:03
Glucose 130 H
POC Glucose 169 H 138 H
04/02/24 04/02/24 04/02/24
10:00 12:26 14:22
Glucose
POC Glucose 163 H 362 H 218 H
Patient Education
--- NOTE | 2024-04-02 14:53 | W.CON.NEPH ---
Consultation
-
Date/Time Consultation Requested: 04/02/2024 2 PM
Date/Time Consultation Performed: 04/02/2024 2:50 PM
Requesting Provider: Dr. Nance
Performing Provider: Dr. Levine
Reason for Consultation: Diabetes insipidus
Medical History
-
Chief Complaint: Right flank pain
History of Present Illness:
38-year-old female with spina bifida s/p GLOBAL REGULATORY AFFAIRS MANAGER shunt, multiple revisions, most recent revision in 2013, history of nephrolithiasis, diabetes on oral medications, LINH on CPAP, self cath of bladder with stoma, presented to the hospital for evaluation of
a sudden onset flank swelling that patient and her family noticed yesterday night. Right-sided flank swelling was incidentally noticed by patient's mom when patient started moaning in pain every time she rests her back to her wheelchair. She
denies having any associated fever, chills, nausea, emesis, frequency, hesitancy, dysuria-she self catheterizes herself for urine. denied abdominal pain,n,v,d. denied dysuria or hematuria. she denies having any cough, shortness of breath, chest
pain, palpitations as well. She was found to have a right perinephric abscess and a drain was placed.
That only recently moved from [place] to [place]. They have not fully established all her care here yet.
They report that when she had her GLOBAL REGULATORY AFFAIRS MANAGER shunt placed in the past, they had nicked a blood vessel which had resulted in central DI. She is now managed with DDAVP intranasally twice daily. Occasionally she will use oral desmopressin if there is
significant free water wasting.
Past Medical History
spina bifida s/p [facility] shunt, multiple revisions, most recent revision in 2013, history of nephrolithiasis, diabetes on oral medications, LINH on CPAP, self cath of bladder with stoma,
GLOBAL REGULATORY AFFAIRS MANAGER shunt
kidney stone surgeries
MOHS surgery
stoma creation for self cath
Social History
Tobacco: Non-Smoker
Alcohol: None
Family History
Family History: Not Pertinent
Allergies / Home Medications
Allergy/AdvReac Type Severity Reaction Status Date / Time
latex Allergy Itching Verified 03/24/24 12:17
�Medication �Instructions �Recorded �Confirmed �Type
Vitamin C 1 tab PO BIDWMEAL Supplement 03/24/24 03/24/24 History
atorvastatin 40 mg tablet 40 mg PO QPM High Cholesterol 03/24/24 03/24/24 History
azelastine 137 mcg (0.1 %) nasal 1 spray intranasal BIDPRN PRN 03/24/24 03/24/24 History
spray congestion
chlorthalidone 25 mg tablet 25 mg PO DAILY Fluid 03/24/24 03/24/24 History
Retention/Swelling
desmopressin 0.2 mg tablet 0.2 mg PO QIDPRN PRN diabetes 03/24/24 03/24/24 History
insipidus symptoms
desmopressin 10 mcg/spray (0.1 mL) 1 spray intranasal BID DIABETES INS 03/24/24 03/24/24 History
nasal spray (non-refrigerated)
fenofibrate 160 mg tablet 160 mg PO HS HIGH TRIGLYCERIDE 03/24/24 03/24/24 History
guaifenesin 1,200 mg tablet, 1,200 mg PO DAILY Congestion 03/24/24 03/24/24 History
extended release 12 hr (Mucinex)
methenamine hippurate 1 gram tablet 1 g PO BIDWMEAL Urinary Issue 03/24/24 03/24/24 History
mirabegron 50 mg tablet,extended 50 mg PO DAILY Urinary Issue 03/24/24 03/24/24 History
release 24 hr (Myrbetriq)
semaglutide 1 mg/dose (4 mg/3 mL) 1 mg SC LARSON Diabetes 03/24/24 03/24/24 History
subcutaneous pen injector (Ozempic)
blood sugar diagnostic (Contour #200 ea 04/02/24 Rx
Next Test Strips)
cefazolin 10 gram solution for 2 g IV Q8H #10 ea 04/02/24 Rx
injection
insulin aspart U-100 100 unit/mL 18 unit (0.18 mL) SC AC #5 ea 04/02/24 Rx
(3 mL) subcutaneous pen (Novolog
FlexPen U-100 Insulin aspart)
insulin glargine 100 unit/mL (3 25 unit (0.25 mL) SC BID@1000,2200 04/02/24 Rx
mL) subcutaneous pen (Lantus #5 ea
Solostar U-100 Insulin)
lancets 21 gauge (Color Lancets) #200 ea 04/02/24 Rx
pen needle, diabetic 32 gauge x #200 ea 04/02/24 Rx
' (BD Ultra-Fine Chayito Pen
Needle)
Review of Systems
-
No chest pain or shortness of breath. No issues with urine output. Oral intake is stable.
All other systems: Negative unless noted
Physical Exam
Vital Signs
Vital Signs
Temp Pulse Resp BP Pulse Ox
97.4 F 99 19 131/88 98
04/02/24 07:00 04/02/24 07:00 04/02/24 07:00 04/02/24 07:00 04/02/24 07:00
Lab Results
WBC 11.8 10^3/uL (4.8-10.8) H 04/02/24 05:03
RBC 3.40 10^6/uL (4.20-5.40) L 04/02/24 05:03
Hgb 9.1 g/dL (12.0-16.0) L 04/02/24 05:03
Hct 29.2 % (37.0-47.0) L 04/02/24 05:03
Plt Count 301 10^3/uL (130-400) 04/02/24 05:03
Sodium 130 mmol/L (135-145) L 04/02/24 05:03
Potassium 4.3 mmol/L (3.5-5.1) 04/02/24 05:03
Chloride 92 mmol/L (98-107) L 04/02/24 05:03
Carbon Dioxide 27 mmol/L (22-30) 04/02/24 05:03
BUN 15 mg/dl (7-17) 04/02/24 05:03
Creatinine 0.3 mg/dL (0.6-1.0) L 04/02/24 05:03
eGFR > 60.00 04/02/24 05:03
Glucose 130 mg/dl (70-99) H 04/02/24 05:03
Calcium 8.9 mg/dl (8.4-10.2) 04/02/24 05:03
Phosphorus 3.4 mg/dl (2.5-4.5) 03/26/24 05:35
Albumin 3.3 g/dl (3.5-5.0) L 03/24/24 12:25
CT abdomen pelvis on 03/29/2024
IMPRESSION:
There is decreased size of the loculated right perinephric abscess which now measures up to 7.6 cm. There is persistent extension into the right kidney consistent with pyelonephritis. The percutaneous pigtail catheter tip terminates in the lateral
aspect of the collection.
Small right pleural effusion with right basilar atelectasis, similar to prior.
Severe scoliotic curvature of the thoracolumbar spine with congenital spinal dysraphism, unchanged from prior. There is a possible cutaneous defect along the superficial sacral soft tissues, possible decubitus ulcer. Recommend direct visualization.
Unchanged nonobstructing stones within the right kidney measuring up to 1.1 cm.
Physical Exam
Patient is awake alert oriented and in no distress. Mood and affect were pleasant, insight and judgment were good. Pupils are equal round and reactive to light, extraocular movements are intact, sclera were anicteric. Hearing was normal, ears and
nose are intact. Oropharynx was clear. Neck was supple with trachea midline and no thyromegaly. Heart was regular rate and rhythm without rubs. Lower extremities without edema. Lungs were clear to auscultation bilaterally and with normal
excursion. Abdomen was soft, nontender, with normal active bowel sounds, and no hepatosplenomegaly. Skin was without rash and with normal turgor.
Data Reviewed
-
CT Scan: Report Reviewed by me
Medical Tests (Nuc Med, Echo etc): Image Personally Visualized and interpreted (EKG on 03/24/2024 by my read shows sinus tachycardia left axis deviation inferior and anterior lateral Q)
Labs: Labs Reviewed by me
Assessment/Plan
-
Assessment
Right perinephric abscess with drain
Central diabetes insipidus
Hyponatremia
Diabetes mellitus type 2
Neurogenic bladder
Spina bifida
GLOBAL REGULATORY AFFAIRS MANAGER shunt
Sleep apnea
Hypertension
Plan
At this point her sodium level is acceptable. So long as her sodium level remains above 130 we may continue DDAVP as prescribed.
They state that occasionally she takes additional salt if the sodium level is too low of this does not appear to be a frequent occurrence.
While in the hospital however I would simply withhold 1 spray of DDAVP if the sodium level continues to fall further.
Will check urine studies to evaluate the potency of her DDAVP dosing currently
Discussed with the family
[2024-04-02 15:00] VITALS: BP 118/78
[2024-04-02 17:45] LABS: Glucose - Point of Care 90 mg/dl (70-99)
[2024-04-02] MEDS: NOVOLOG FLEXPEN-LOW RESISTANCE SC (18:42)
[2024-04-02] MEDS: LIPITOR 40 MG PO (18:43)
[2024-04-02] MEDS: TRICOR 145 MG PO (21:11)
[2024-04-02 21:22] LABS: Glucose - Point of Care 123 mg/dl (70-99)
[2024-04-02 23:04] VITALS: BP 156/93
[2024-04-03] MEDS: ANCEF 10 IV ×2 (04:44→11:31)
[2024-04-03 06:00] LABS: Hematocrit 34.1 % (37.0-47.0); Hemoglobin 10.4 g/dL (12.0-16.0); Mean Corp Hgb Conc. 30.5 g/dL (33.0-37.0); Mean Corpuscular Hgb 26.7 pg (27.0-31.0); Mean Corpuscular Volume 87.4 fL (81.0-99.0); Mean Platelet Volume 8.4 fL (7.4-10.4); Platelet Count 335 10^3/uL (130-400); White Blood Cell Count 12.6 10^3/uL (4.8-10.8)
[2024-04-03 06:25] LABS: Blood Urea Nitrogen 11 mg/dl (7-17); Calcium 9.6 mg/dl (8.4-10.2); Carbon Dioxide 26 mmol/L (22-30); Chloride 95 mmol/L (98-107); Estimated Creatinine Clearance 114 ml/min; Glucose 168 mg/dl (70-99); Potassium 4.9 mmol/L (3.5-5.1); Sodium 136 mmol/L (135-145); eGFR > 60.00
[2024-04-03 07:10] VITALS: BP 137/92
[2024-04-03 07:23] LABS: Glucose - Point of Care 152 mg/dl (70-99)
--- NOTE | 2024-04-03 07:38 | PN.DE.MGMTRT ---
Insulin Management
- -
04/03/2024: Diabetes Management Follow up:
38 year old female admitted 03/24 with c/o R flank pain and fever, found to be in DKA with GAP 16.
Complex PMH:Spina bifida w shunt and multiple revisions, nephrolithiasis, LINH w/CPAP, self cath through stoma, stage 3 sacral ulcers, diabetes. She received all of her care @ [facility], recently moved here, ~ 2 weeks ago. States she has had diabetes 5
years. Has not set up new primary doctor since move. She states she has a glucose monitor but doesn't use it. Prior to admission was taking 1 mg Ozempic weekly on Saturday, glimepiride 2 mg BID. A1C on admission 10.3%, Cr 0.3, eGFR > 60.
Patient is awake, alert and oriented, offers no complaints, able to discuss diabetes mgt. No family at bedside
Patient was transitioned off DKA protocol on 03/25 to SQ insulin.
04/02 Glucose range 138 to 169 yesterday. Will continue 18 novolog AC with low corrective and lantus 25 units BID.
Patient family requested I review all aspects of diabetes care today as patient being discharged. Again instructed family on types of insulin and action, insulin prep and administration, novolog to be taken with each meal in the abdomen and lantus
to be taken at 10am and 10pm in the leg. Testing blood sugar AC and HS. My number provided for further questions.
Patient has been self injecting with nursing supervision. Nurse reports Tisha did well with self administration but does still need verbal cues for prep. Provided again the Insulin pen prep and administration instruction sheet with pictures.
04/03 Glucose range acceptable, no change to current regimen.
Nursing to have patient do all injections with nursing supervision to increase patient confidence in readiness for discharge. A glucose monitor has been provided and instructed
Discussed with pt and instructed her not to resume the glimepiride up return home.
Will follow
Diabetes History
- -
Type of Diabetes: 2 requiring insulin
Pre-Admission Diabetes Regimen
04/03/24
05:22
Creatinine 0.3 L
Lab Results
Hemoglobin A1c 10.3 % (4.0-5.6) H 03/24/24 22:08
Insulin Pump Settings
IP Diabetes Regimen
04/02/24 04/02/24 04/02/24
10:00 12:26 14:22
Glucose
POC Glucose 163 H 362 H 218 H
04/02/24 04/02/24 04/03/24
17:41 21:20 05:22
Glucose 168 H
POC Glucose 90 123 H
04/03/24
07:22
Glucose
POC Glucose 152 H
Patient Education
--- NOTE | 2024-04-03 07:44 | W.PN.URO.CBU ---
Today's Communication / Plan
-
discharge when medically stable
Assessment / Plan
-
markus-renal abscess in pt with spina bifida/urinary reconstruction and REHEATER shunt
gil functional now- irrigate prn
drain repositioned and upsized yesterday
clear for discharge from my standpoint with drain and antibx per ID
stomal gil can be removed at time of discharge for patient to resume self cath
pt to f/u with [facility] urology team- scheduled on saturday
spoke with parents again yesterday and they are aware of the plan
Diagnosis
-
Date of Service: April 03, 2024
-
Patient Diagnosis:
markus-renal abscess
IR drainage 03/25- drain re-positioned 03/31
Subjective
-
pt without complaint
labs look ok- wbc still mildly elevated but no fevers
drain output steady- but is declining to some degree
urine clear
Objective
-
Vital Signs
Temp Pulse Resp BP Pulse Ox
98.4 F 99 20 156/93 99
04/02/24 23:04 04/02/24 23:04 04/02/24 23:04 04/02/24 23:04 04/02/24 23:04
Intake and Output
04/02/24 04/03/24 04/04/24
06:59 06:59 06:59
Intake Total 970 / 970 1130 / 1130
Output Total 425 / 425 140 / 140
Balance 545 / 545 990 / 990
Intake:
Oral fluids 960 / 960 1120 / 1120
Amount instilled into Drain (
Total)
Right Radha
Output:
Drain Output (Total) 75 / 75 40 / 40
Right Santos-Caruso / 40 / 40
Right Santos-Caruso Placed in 50 / 50
IR
Urine, Gil 350 / 350 100 / 100
Other:
Number of approximated MODERATE 2
amounts of urine
How many times incontinent 1
MODERATE amount urine
How many times incontinent 1 3
SATURATED amount urine
Laboratory Results
04/03/24 05:22
04/03/24 05:22
Review of Systems
-
Constitutional: Fatigue
Respiratory: No Symptoms
Cardiac: No Symptoms
Abdomen/GI: No Symptoms
Physical Exam
-
General -no acute distress
Abdomen - soft, non-tender, gil in stoma/ ladarius in right side
[2024-04-03] MEDS: DETROL LA 4 MG PO (09:33)
[2024-04-03] MEDS: MUCINEX 1200 MG PO (09:33)
[2024-04-03] MEDS: VITAMIN C 500 MG PO (09:33)
[2024-04-03] MEDS: DDAVP NASAL SPRAY 1 SPRAY NASAL (09:34)
[2024-04-03] MEDS: LANTUS 0.25 UNITS SC (09:34)
[2024-04-03 11:16] LABS: Glucose - Point of Care 139 mg/dl (70-99)
[2024-04-03] MEDS: NOVOLOG FLEXPEN-LOW RESISTANCE SC (11:16)
[2024-04-03] MEDS: NOVOLOG FLEXPEN 18 UNITS SC (11:16)
[2024-04-03 12:00] VITALS: BP 135/65
--- NOTE | 2024-04-03 12:00 | W.PN.NEPH.PH ---
Today's Communication / Plan
-
follow bmp
Assessment/Plan
-
Assessment
Right perinephric abscess with drain
Central diabetes insipidus
Hyponatremia
Diabetes mellitus type 2
Neurogenic bladder
Spina bifida
HOROLOGIST shunt
Sleep apnea
Hypertension
Plan
At this point her sodium level is acceptable at 136 So long as her sodium level remains above 130 we may continue DDAVP as prescribed.
They state that occasionally she takes additional salt if the sodium level is too low of this does not appear to be a frequent occurrence.
While in the hospital however I would simply withhold 1 spray of DDAVP if the sodium level continues to fall further.
Will check urine studies to evaluate the potency of her DDAVP dosing currently
follow sodium
-
-
Date of Service: April 03, 2024
CC / HPI / ROS
-
Chief Complaint:
DI
History of Present Illness:
sodium stable at 136
bp stable
Review of Systems:
non oliguric
Labs
-
Labs:
WBC 12.6 10^3/uL (4.8-10.8) H 04/03/24 05:22
RBC 3.90 10^6/uL (4.20-5.40) L 04/03/24 05:22
Hgb 10.4 g/dL (12.0-16.0) L 04/03/24 05:22
Hct 34.1 % (37.0-47.0) L 04/03/24 05:22
Plt Count 335 10^3/uL (130-400) 04/03/24 05:22
Sodium 136 mmol/L (135-145) 04/03/24 05:22
Potassium 4.9 mmol/L (3.5-5.1) 04/03/24 05:22
Chloride 95 mmol/L (98-107) L 04/03/24 05:22
Carbon Dioxide 26 mmol/L (22-30) 04/03/24 05:22
BUN 11 mg/dl (7-17) 04/03/24 05:22
Creatinine 0.3 mg/dL (0.6-1.0) L 04/03/24 05:22
eGFR > 60.00 04/03/24 05:22
Glucose 168 mg/dl (70-99) H 04/03/24 05:22
Calcium 9.6 mg/dl (8.4-10.2) 04/03/24 05:22
Phosphorus 3.4 mg/dl (2.5-4.5) 03/26/24 05:35
Albumin 3.3 g/dl (3.5-5.0) L 03/24/24 12:25
Physical Exam
-
Vital Signs:
Vital Signs
Temp Pulse Resp BP Pulse Ox
97.4 F 91 18 137/92 98
04/03/24 07:10 04/03/24 07:10 04/03/24 07:10 04/03/24 07:10 04/03/24 07:10
Cardiovascular:: Regular rate and rhythm
Respiratory:: Bilateral: CTA
Lung Excursion:: Normal
Abdomen:: Nontender and Soft
Bowel Sounds:: Normal
Extremity Edema:: None: Bilateral:
Sellers Catheter: No
--- NOTE | 2024-04-03 12:08 | W.PN.ID1 ---
Date of Service
Date of Service: April 03, 2024
Today's Communication
Continue antibiotics.
Assessment / Plan
Large right renal abscess;
- Overall drainage improved/decreased.
- Cx's with Klebsiella pneumoniae
- repeat imaging with persistent, but decreased collection.
Leukocytosis
Hx flank pain
DM; uncontrolled (HbA1c = 10.3)
Hx nephrolithiasis
Urinary retention; chronic self-catheterization via stoma
Spina bifida
Obesity
LINH
Recommendations:
Cultures with Klebsiella pneumoniae from abscess and from blood.
Repeat CT a/p shows decrease in size of abscess from 11.2 cm x 9.4 cm to 7.6 cm x 3.5 cm
Repeat blood cultures without growth.
Continue cefazolin 2 g IV every 8 hours for another 7 days, followed by a course of oral antibiotic therapy.
Will follow-up in the outpatient setting.
����������������������������������������������������������
Chief Complaint
-: Other (Right renal abscess.)
Subjective / Review of Systems
Review of Systems: No Fever, No Chills and No Abdominal Pain
Vital Signs / Physical Exam
Vital Signs
Vital Signs
Temp Pulse Resp BP Pulse Ox
97.4 F 91 18 137/92 98
04/03/24 07:10 04/03/24 07:10 04/03/24 07:10 04/03/24 07:10 04/03/24 07:10
Physical Exam
Constitutional: No Acute Distress, Comfortable and Chronically Ill
Eyes: Sclera Anicteric
Cardiovascular: Regular Rate and S1/S2; Negative S3/S4
Pulmonary: Clear and Non Labored
Gastrointestinal: Soft, Non Tender and Non Distended
Genito-Urinary: Other (Right flank CLARISSA drain: Scant purulent drainage noted. More serous in nature at this time.)
Extremities: Negative Edema, Cyanosis or Erythema
Neurological: Awake and Alert
Psychological: Calm
Objective Data
Lab Data
Lab Results
04/03/24 05:22
04/03/24 05:22
PT 16.2 Sec (11.4-14.6) H 03/24/24 15:59
INR 1.27 03/24/24 15:59
APTT 26.8 Sec (23.4-35.0) 03/24/24 22:08
Estimated Creat Clear 114 ml/min 04/03/24 05:22
Lactic Acid 1.6 mmol/L (0.7-2.0) 03/24/24 15:59
Total Bilirubin 0.6 mg/dl (0.2-1.3) 03/24/24 12:25
AST 24 U/L (14-36) 03/24/24 12:25
ALT 23 U/L (0-35) 03/24/24 12:25
Alkaline Phosphatase 113 U/L (38-126) 03/24/24 12:25
Most recent labs reviewed.
Micro Results:
04/03/24 10:29 MRSA Screen - Pending
Nose
03/26/24 22:27 Blood Culture - Final
Blood/Venous No Growth - Final Report
03/24/24 15:59 Blood Culture - Final
Blood/Venous Klebsiella pneumoniae
Gram Stain - Final
03/24/24 15:59 Blood Culture - Final
Blood/Venous No Growth - Final Report
03/26/24 04:08 Urine Culture - Final
Urine NO GROWTH
03/26/24 10:49 MRSA Screen - Final
Nose No Methicillin Resistant Staphylococcus aureus isolated.
03/25/24 15:45 Body Fluid Culture - Final
Fluid Klebsiella pneumoniae
Gram Stain - Final
Blood Culture Preliminary 03/24/24
Klebsiella pneumoniae
Organism 1 Klebsiella pneumoniae
1. Klebsiella pneumoniae
M.I.C. RX
--------- ---
Amoxicillin/Potas. Clavulanate <=8/4 S
Ampicillin >16 R
Ampicillin/Sulbactam 8/4 S
Aztreonam <=4 S
Cefazolin <=2 S
Ertapenem <=0.5 S
Ciprofloxacin <=0.25 S
Gentamicin <=2 S
Meropenem <=1 S
Piperacillin/Tazobactam <=8 S
Tetracycline >8 R
Tobramycin <=2 S
Trimethoprim/Sulfamethoxazole >2/38 R
Imaging:
03/24/2024 CT chest/abdomen/pelvis with IV contrast: In the chest a small right pleural effusion is noted. There is a small subcentimeter solid pulmonary nodule. Severe right convex curvature of the thoracolumbar junction. Multilevel vertebral
body anomaly in the upper thoracic spine. In the abdomen and pelvis a large 14 cm centrally cystic mass exophytic from the posterior cortex of the right kidney and extending posteriorly through the posterior abdominal wall is noted. Multiple
nonobstructing right intrarenal calculi are seen. Moderate amount of fecal material throughout the colon. A neurogenic bladder is noted. Please see full dictation for additional detail. Film personally viewed.
03/29/2024 CT a/p: There is decreased size of the loculated right perinephric abscess which now measures up to 7.6 cm (from 11.2 cm). There is persistent extension into the right kidney consistent with pyelonephritis. The percutaneous pigtail
catheter tip terminates in the lateral aspect of the collection.
Care Review
Plan reviewed with: Physician (Hospitalist)
--- NOTE | 2024-04-03 12:10 | W.PN.HOSP.TC ---
Today's Communication/Plan
-
Discharge home
More than 30 minutes spent in discharge including
Final examination of the patient
Summarizing hospital stay
Instructions for continuing care to all relevant caregivers
Preparation of discharge records, prescriptions, and referral forms
Total time spent (in minutes): 36min
Assessment / Plan
Assessment / Plan
Physical Exam
NAD, resting comfortably in bed
Scleral anicteric
Moist mucous membranes
No JVD
CTA bilateral
Normal S1-S2 no murmurs
Soft nontender nondistended bowel sounds active
No peripheral pitting edema
Moves extremities spontaneously
AAOx3
Assessment and Plan
Sepsis due to right-sided pyelonephritis/abscess
-S/p drain placement
-Urology following
-Urology would like drain reposition
-This is planned for today
-Continue antibiotics per ID recommending
--WIll need IVATB x7days per ID, will cnsult IV team to place a midline
--Infusion sheet per ID left in Chart
--Post IV Atb will be on po atb per ID
Diabetes type 2 presented with DKA now DKA resolved.
-A1c 10.3%
-Continue oral hypoglycemics
-Diabetes HEALTH AND WELLNESS MANAGER following
-Continue long and short acting insulin
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
Hyponatremia likely related to desmopressin.
-Family is requesting salt tabs along with increased dose of desmopressin with 2 sprays in each nostril twice a day.
-Desmopressin would further worsen hyponatremia. Will like to avoid this
-Nephrology consulted
Normocytic anemia - likely chronic. Hemoglobin 9.9, stable. Will need outpatient follow-up.
Hypokalemia -improved.
Nephrolithiasis -multiple nonobstructing right intrarenal calculi noted on CT.
Neurogenic bladder -history of urinary reconstruction. Has Sellers catheter through abdominal stoma, self catheterizes at home.
Spina bifida -s/p WELT BUTTER HAND shunt, history of multiple revisions, most recent was 2013. Shunt catheter appears fractured on x-ray, will need surgical follow-up.
LINH -on CPAP.
Hyperlipidemia -atorvastatin.
Essential hypertension -controlled.
Hyponatremia resolved
Stage III sacral decubital wound
Anticipated Discharge: Today
Subjective/Interval History
-
Date of Service: April 03, 2024
Seen and examined. No new complaints. No acute overnight
Spoke with cell father of Ms. Vargas
Objective Data
-
Labs:
Laboratory Results
04/03/24
05:22
WBC 12.6 H
Hgb 10.4 L
Hct 34.1 L
Plt Count 335
Sodium 136
Potassium 4.9
Chloride 95 L
Carbon Dioxide 26
BUN 11
Creatinine 0.3 L
Glucose 168 H
Calcium 9.6
Vital Signs:
Vital Signs
Temp Pulse Resp BP Pulse Ox
97.4 F 91 18 137/92 98
04/03/24 07:10 04/03/24 07:10 04/03/24 07:10 04/03/24 07:10 04/03/24 07:10
I&O
04/02/24 04/03/24 04/04/24
06:59 06:59 06:59
Intake Total 970 / 970 1130 / 1130
Output Total 425 / 425 140 / 140
Balance 545 / 545 990 / 990
--- NOTE | 2024-04-03 12:12 | W.DCSUMMARY ---
Discharge Summary
Discharge Data
Date of Admission: 03/24/24
Date of Discharge: 04/03/24
-
Pending Results: No
Hospital Course
38 female with history of spina bifida s/p CUSTOMER ASSISTANT shunt, multiple diabetes on LINH on CPAP, self cath of bladder with stoma, presented with sudden onset flank swelling associated pain found to have a right perinephric abscess and drain was placed.
Followed by urology. Found to have body fluid and blood cultures that were consistent with Klebsiella bacteremia. Evaluated by infectious diseases recommended continuation of IV antibiotics with Ancef for additional 6 more days after discharge
along with initiation of Keflex 500 mg 4 times daily once IV antibiotics have been completed.
Additionally, hospital course further complicated by hyponatremia therefore that she has a history of diabetes insipidus on DDAVP nephrology was consulted. No significant changes occurred. Fluid restricted. Sodium improved to 136 on day of
discharge.
With saying of that she also had uncontrolled hyperglycemia and was discharged home on long and short acting insulin along with Ozempic for which she was already on prior to hospitalization.
Will need outpatient PCP urology nephrology follow-up
Discharge Plan
-
Patient Disposition: Home with Home Care
Discharge Diagnosis/Procedures: large right markus-renal abscess
klebsiella bacteremia
Condition: Fair
Diet: As tolerated
Activity: As tolerated
Referrals:
Blair Campos DO [Active] -
Mark Johnson Jr., MD [Active] -
Byron Huang MD [Active] -
Iban Hernández MD [Family Provider] -
Prescriptions:
New
cefazolin 10 gram Recon Soln
2 g IV Q8H Qty: 10 0RF
Rx Instructions:
script sent to infusion company
insulin aspart U-100 [Novolog FlexPen U-100 Insulin] 100 unit/mL (3 mL) Insulin Pen
18 unit SC AC Qty: 5 0RF
insulin glargine [Lantus Solostar U-100 Insulin] 100 unit/mL (3 mL) Insulin Pen
25 unit SC BID@1000,2200 Qty: 5 0RF
(DME) pen needle, diabetic [BD Ultra-Fine Chayito Pen Needle] 32 gauge x 5/32' Needle
Qty: 200 0RF
Rx Instructions:
As Directed
(DME) Contour Next Test Strips Strip
Qty: 200 0RF
Rx Instructions:
Test blood sugar before each meal and bedtime As Directed
E11.65
(DME) lancets [Color Lancets] 21 gauge Misc
Qty: 200 0RF
Rx Instructions:
Test blood sugar before each meal and bedtime As Directed
E11.65
cephalexin 500 mg capsule
500 mg PO QID 10 Days Qty: 40 0RF
Rx Instructions:
start after completion of IV antibiotic and take for 10days
Continued
atorvastatin 40 mg tablet
40 mg PO QPM
desmopressin 10 mcg/spray (0.1 mL) spray with pump
1 spray INTRANASAL BID
desmopressin 0.2 mg tablet
0.2 mg PO QIDPRN PRN (Reason: diabetes insipidus symptoms)
chlorthalidone 25 mg tablet
25 mg PO DAILY
methenamine hippurate 1 gram tablet
1 g PO BIDWMEAL
azelastine 137 mcg (0.1 %) spray,non-aerosol
1 spray INTRANASAL BIDPRN PRN (Reason: congestion)
fenofibrate 160 mg tablet
160 mg PO HS
guaifenesin [Mucinex] 1,200 mg Tablet Extended Release 12hr
1,200 mg PO DAILY
mirabegron [Myrbetriq] 50 mg tablet extended release 24 hr
50 mg PO DAILY
Ozempic 1 mg/dose (4 mg/3 mL) pen injector
1 mg SC LARSON
Vitamin C
1 tab PO BIDWMEAL
Discontinued
glimepiride 2 mg tablet
2 mg PO BID
Discharge Orders:
Discharge Patient (As Directed); Ordered 04/03/24
Ordered By: Scot Nance
Discharge Date and Time
Print Language: GEORGIAN
--- NOTE | 2024-04-03 12:42 | CM ---
CM reviewed chart, spoke to patients mother on phone, will transport patient home. Patients mother requesting teaching from nurse regarding wrapping drain and transferring to chair with drain, update to nurse. [facility] to deliver supplies to home
2:00 p.m., Sheyla CROOK will see patient today. Patients mother provided with [facility] contact number for any questions. CM will continue to follow for all discharge planning needs.
Plan; home with family, Sheyla CROOK, [facility]
Sheyla
[facility]: [phone]
== END 2024-04-03 12:51 | disposition home health service (06) | DRG 871 ==
LOC: 4 WEST ACU 20:47
PROVIDERS: Emergency Medicine; Hospitalist; Registered Nurse; Student in an Organized Health Care Education/Training Program; ADMITTING PHYSICIAN Internal Medicine; ATTENDING PHYSICIAN Hospitalist; CONSULT PHYSICIAN Internal Medicine Infectious Disease; CONSULT PHYSICIAN Specialist; EMERGENCY PHYSICIAN Student in an Organized Health Care Education/Training Program; FAMILY PHYSICIAN Internal Medicine; OTHER PHYSICIAN Internal Medicine Critical Care Medicine
PROC: 0T9030Z Drainage of Right Kidney with Drainage Device, Percutaneous Approach (ICD-10-PCS; 2024-03-25)
DX: A41.59 Other Gram-negative sepsis (principal); E11.10 Type 2 diabetes mellitus with ketoacidosis without coma; L89.153 Pressure ulcer of sacral region, stage 3; N15.1 Renal and perinephric abscess; E23.2 Diabetes insipidus; Q05.7 Lumbar spina bifida without hydrocephalus; E66.01 Morbid (severe) obesity due to excess calories; G47.33 Obstructive sleep apnea (adult) (pediatric); Z68.34 Body mass index [BMI] 34.0-34.9, adult
CPT/HCPCS: 10030; 49423; 71045; 71260; 74177; 75984; 80048; 80053; 81003; 81015; 82010; 82805; 82962; 83036; 83605; 83690; 83735; 84100; 84703; 85025; 85027; 85610; 85730; 87015; 87040; 87070; 87077; 87086; 87186; 87205; 93005; 96365; 96372; 96375; 99152; 99153; 99291; C1729; C1769; Q9967

== ENCOUNTER → 2024-04-21 07:09 | Outpatient (REF) | payer MEDICARE, BC, SELFPAY | LOC: RAD 07:09 | PROVIDERS: ATTENDING PHYSICIAN Specialist; FAMILY PHYSICIAN Internal Medicine | DX: N20.0 Calculus of kidney (principal); N15.1 Renal and perinephric abscess | CPT/HCPCS: 74176 ==

== ENCOUNTER → 2024-09-23 06:31 | Outpatient (REF) | payer MEDICARE, BC, SELFPAY | LOC: RAD 06:31 | PROVIDERS: ATTENDING PHYSICIAN Internal Medicine Critical Care Medicine; FAMILY PHYSICIAN Internal Medicine | DX: R91.8 Other nonspecific abnormal finding of lung field (principal) | CPT/HCPCS: 71250 ==